=== PATIENT | female | born 1940 | race Caucasian/White ===

== ENCOUNTER 2017-01-10 14:19 | Observation (INO) | payer OTHER, BC ==
--- NOTE | 2017-01-10 14:23 | PDOC ---
Rapid Medical Evaluation Time Seen by Provider: 01/10/17 14:21 Medical Evaluation: Allergies Allergy/AdvReac Type Severity Reaction Status Date / Time meperidine HCl [From Demerol] Allergy Rash Verified 01/10/17 14:21 01/10/17 14:21 Pt arrives with complaints of: chicken "stuck in throat". 3rd episode. Removal done by endoscopy, states unable to swallow solids On exam : speaking full sentences, normal voice I have ordered: soft tissue xray Pt will go to : Main ED Discharge Disposition - Diagnosis Dysphagia Qualifiers: Dysphagia type: unspecified Qualified Code(s): R13.10 - Dysphagia, unspecified Food impaction of esophagus Qualifiers: Encounter type: initial encounter Qualified Code(s): T18.128A - Food in esophagus causing other injury, initial encounter - Referrals - Patient Instructions - Post Discharge Activity
[2017-01-10 14:25] VITALS: BMI 27.8
--- NOTE | 2017-01-10 15:20 | PDOC ---
History of Present Illness - General History Source: Patient Exam Limitations: No Limitations - History of Present Illness Initial Comments: 01/10/17 17:32 The patient is a 76 year old female with a significant PMH of HTN, cataracts, schatzki ring, lung cancer, and anal cancer who presents to the emergency department with difficulty swallowing both liquids and solids since yesterday. She reports associated nausea and vomiting last night. The patient has only been able to take a sip of water while at the ER and vomited clear liquid at presentation. The patient denies chest pain, shortness of breath, headache and dizziness. Denies fever, chills, diarrhea and constipation. Denies dysuria, frequency, urgency and hematuria. Allergies: NKA Past surgical history: None reported. Social history: Former smoker (20 years ago). No reported drug or alcohol abuse. PCP: Dr. Santiago <Cal Ly - Last Filed: 01/10/17 17:47> <Ayush Daily - Last Filed: 01/10/17 17:54> - General Chief Complaint: Foreign Body (FB) Stated Complaint: DIFFICULTY SWALLOWING Time Seen by Provider: 01/10/17 14:21 Past History <Cal Ly - Last Filed: 01/10/17 17:47> - Past Medical History Cancer: Yes (anal lung) COPD: No Disorders: Yes (HAS "RADIATION CYSTITIS" INFLO DEVICE IN PLACE) HTN: Yes - Suicide/Smoking/Psychosocial Hx Smoking History: Former smoker Have you smoked in the past 12 months: No If you are a former smoker, when did you quit?: 20 years ago Information on smoking cessation initiated: No Hx Alcohol Use: Yes (socially) Drug/Substance Use Hx: No Substance Use Type: None Hx Substance Use Treatment: No <Ayush Daily - Last Filed: 01/10/17 17:54> - Past Medical History Allergies/Adverse Reactions: Allergies Allergy/AdvReac Type Severity Reaction Status Date / Time meperidine HCl [From Demerol] Allergy Rash Verified 01/10/17 14:21 Home Medications: Ambulatory Orders Amlodipine Besylate [Norvasc -] 5 mg PO DAILY 05/29/15 Aspirin [Aspirin EC] 81 mg PO DAILY 05/29/15 Atenolol [Tenormin -] 100 mg PO DAILY 05/29/15 Atorvastatin Ca [Lipitor] 10 mg PO HS 05/29/15 Fluoxetine HCl [Prozac] 40 mg PO ASDIR 05/29/15 Olmesartan Medoxomil [Benicar -] 20 mg PO DAILY 05/29/15 Pantoprazole Sodium [Protonix -] 40 mg PO DAILY #30 tablet.ec 06/03/15 Review of Systems - Review of Systems Able to Perform ROS?: Yes Comments:: 01/10/17 17:39 A complete review of 10 out of 10 review of systems is taken and is negative apart from what is previously mentioned below and in the HPI. <Cal Ly - Last Filed: 01/10/17 17:47> *Physical Exam - Vital Signs Last Vital Signs Temp Pulse Resp BP Pulse Ox 98.0 F 80 18 151/103 100 01/10/17 14:21 01/10/17 14:21 01/10/17 14:21 01/10/17 14:21 01/10/17 14:21 - Physical Exam Comments: 01/10/17 17:40 Vitals: Triage Vital signs reviewed General Appearance: no acute distress, well nourished well developed, Head: Atraumatic, normocephalic Ears: TM's normal bilaterally; Nose: Nares patent bilaterally;no nasal congestion Throat: Posterior oropharynx without erythema, mucous membranes moist, Neck: Supple; No Nuchal rigidity Chest Wall: Nontender Cardiac: Regular rate and rhythm, no murmurs, no rubs, no gallops, Lungs: Clear to auscultation bilateral, good air movement bilaterally, Abdomen: (+) Spitting up secretions. Soft, nondistended, normal bowel sounds, nontender to palpation Extremities: Full range of motion to all extremities, no cyanosis, clubbing, or edema Skin: Warm and dry, no rashes or lesions, no petechiae Neuro: AOX3; Cranial Nerves 2-12 grossly intact, Strength intact to all extremities, Sensation intact to all extremities, gait normal Psych: normal mood, normal affect <Cal Ly - Last Filed: 01/10/17 17:47> - Vital Signs Last Vital Signs Temp Pulse Resp BP Pulse Ox 98.0 F 80 18 151/103 100 01/10/17 14:21 01/10/17 14:21 01/10/17 14:21 01/10/17 14:21 01/10/17 14:21 <Ayush Daily - Last Filed: 01/10/17 17:54> Heart Score/ECG Review #1 01/10/17 17:46 EKG performed at [15:43] demonstrates rate of [75], rhythm of [normal], axis equal to [normal]. Prolonged QT. no T wave inversions, no ST elevations <Cal Ly - Last Filed: 01/10/17 17:47> ED Treatment Course - LABORATORY CBC & Chemistry Diagram: 01/10/17 15:30 01/10/17 15:30 - ADDITIONAL ORDERS Additional order review: Laboratory Results 01/10/17 01/10/17 01/10/17 15:30 15:30 15:30 PT with INR 11.60 INR 1.03 PTT (Actin FS) 30.4 Sodium Cancelled Potassium Cancelled Chloride Cancelled Carbon Dioxide Cancelled Anion Gap Cancelled BUN Cancelled Creatinine Cancelled Creat Clearance w eGFR Cancelled Random Glucose Cancelled Calcium Cancelled Total Bilirubin Cancelled AST Cancelled ALT Cancelled Alkaline Phosphatase Cancelled Total Protein Cancelled Albumin Cancelled 01/10/17 15:30 RBC 4.61 D MCV 94.4 MCHC 33.4 RDW 12.5 MPV 7.5 Neutrophils % 70.0 Lymphocytes % 21.4 D Monocytes % 7.2 Eosinophils % 0.7 Basophils % 0.7 - Medications Given in the ED: ED Medications Discontinued Medications Generic Name Dose Route Start Last Admin Trade Name Freq PRN Reason Stop Dose Admin Sodium Chloride 1,000 ml 01/10/17 16:11 01/10/17 16:17 Normal Saline - IV 01/10/17 16:12 1,000 ml ONCE ONE Administration <Cal Ly - Last Filed: 01/10/17 17:47> - LABORATORY CBC & Chemistry Diagram: 01/10/17 15:30 01/10/17 15:30 <Ayush Daily - Last Filed: 01/10/17 17:54> Medical Decision Making - Medical Decision Making 01/10/17 17:40 Plan: Blood Bank: Type and Screen Cardiology:EKG Medications: Sodium Chloride Radiology: Chest PA and LAT <Cal Ly - Last Filed: 01/10/17 17:47> - Medical Decision Making 01/10/17 17:53 Dr. Raoul Mathur to take patient to endoscopy suite under general anesthesia for food bolus disimpaction. Doctor Michael observe overnight patient can be discharged with procedure successful in the morning <Ayush Daily - Last Filed: 01/10/17 17:54> *DC/Admit/Observation/Transfer - Attestations Scribe Attestion: 01/10/17 17:41 Documentation prepared by Cal Ly, acting as medical radiation dosimetrist for Ayush Daily MD. <Cal Ly - Last Filed: 01/10/17 17:47> - Discharge Dispostion Admit: Yes <Ayush Daily - Last Filed: 01/10/17 17:54> Diagnosis at time of Disposition: Dysphagia Qualifiers: Dysphagia type: unspecified Qualified Code(s): R13.10 - Dysphagia, unspecified Food impaction of esophagus Qualifiers: Encounter type: initial encounter Qualified Code(s): T18.128A - Food in esophagus causing other injury, initial encounter - Referrals Referrals: Casey Rosario MD [Staff Physician] -
--- NOTE | 2017-01-10 15:57 | CON.GI ---
Consult Consult Specialty:: GI: Dr. Boyd for Dr. Rosario Referred by:: Dr. Ghislaine Santiago Reason for Consultation:: Dysphagia - History of Present Illness Chief Complaint: "chicken is stuck in my throat" History of Present Illness: 76F sent to [facility] ER by PMD for evaluation of dysphagia. She states that she was eating baked chicken breast last night and felt it get stuck in her throat. She then began experiencing vomiting intermittently through the night. She tried eating ceral thinking she could "push the food down" however she vomited this up at around 7 AM and tried eating ice cream for lunch. She Saw Dr. Santiago today, who advised she go to the ER. She had been endopscoped by Dr. Casey Rosario in 2016 for a similar episode. This led to disimpaction of food from her esophagus and a repeat upper endoscopy with dilation of a 3cm distal esophageal stricture. She subsequently followed with motor and controls tester Dr. Amos Manning at [facility] and has EGD/Colonoscopy last year. She was not sure of the results of the procedure. She currently took some sips of water in the ER at [facility] and did vomit mucous and water. - History Source History Provided By: Patient Limitations to Obtaining History: No Limitations - Past Medical History Cardio/Vascular: Yes: HTN, Hyperlipdemia Pulmonary: Yes: Other (MELI lobectomy for lung cancer 2008) Gastrointestinal: Yes: Cancer (anal cancer 2002), Hiatal Hernia (schatzki ring) , Other (anal cancer, dilation of esophageal stricture 2015) Renal/: Yes: Renal Inusuff, Other (radiation cystitis) Psych: Yes: Depression - Past Surgical History Past Surgical History: Yes: Cataract Removal, Colonoscopy, Hysterectomy - Alcohol/Substance Use Hx Alcohol Use: Yes (socially) - Smoking History Smoking history: Former smoker Have you smoked in the past 12 months: No If you are a former smoker, when did you quit?: 20 years ago - Social History Usual Living Arrangement: Alone () ADL: Independent 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, 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 Place of : [facility] [place] History of Recent Travel: No Home Medications - Allergies Allergies/Adverse Reactions: Allergies Allergy/AdvReac Type Severity Reaction Status Date / Time meperidine HCl [From Demerol] Allergy Rash Verified 01/10/17 14:21 - Home Medications Home Medications: Ambulatory Orders Amlodipine Besylate [Norvasc -] 5 mg PO DAILY 05/29/15 Aspirin [Aspirin EC] 81 mg PO DAILY 05/29/15 Atenolol [Tenormin -] 100 mg PO DAILY 05/29/15 Atorvastatin Ca [Lipitor] 10 mg PO HS 05/29/15 Fluoxetine HCl [Prozac] 40 mg PO ASDIR 05/29/15 Olmesartan Medoxomil [Benicar -] 20 mg PO DAILY 05/29/15 Pantoprazole Sodium [Protonix -] 40 mg PO DAILY #30 tablet.ec 06/03/15 Family Disease History - Family Disease History Family Disease History: CA: Father ( 83: Brain tumor), Mother ( 89: breast and esophageal cancers), Brother (2, 1 with colon cancer, lung cancer), Other: Brother, Sister (2) Review of Systems - Review of Systems Constitutional: denies: Fever, Unintentional Wgt. Loss Cardiovascular: denies: Chest Pain, Shortness of Breath Respiratory: denies: Cough Gastrointestinal: reports: Dysphagia, Vomiting. denies: Abdominal Pain, Melena Physical Exam-GI Vital Signs: Vital Signs Temperature Afeb 01/10/17 15:30 Pulse Rate 71 01/10/17 15:30 Respiratory Rate 18 01/10/17 15:30 Blood Pressure 177/97 01/10/17 15:30 O2 Sat by Pulse Oximetry (%) 98% RA 01/10/17 15:30 Constitutional: Yes: Calm Eyes: No: Sclera Icterus Cardiovascular: Yes: Regular Rate and Rhythm Respiratory: Yes: CTA Bilaterally Gastrointestinal Inspection: No: Distention ...Auscultate: Yes: Normoactive Bowel Sounds ...Palpate: No: Hepatomegaly, Splenomegaly, Tenderness ...Percussion: No: Tympanitic Edema: No (No LE edema) Neurological: Yes: Alert, Oriented Labs: No Labs as of yet Imaging - Results X-ray: Report Reviewed Problem List - Problems (1) Food impaction of esophagus Assessment/Plan: Suspected food impaction: Still vomiting up saliva Advise: NPO IV hydration Labs, including coags EKG CXR Discussed EGD with Ms. Dominguez. Discussed potential risks of the procedure like but not limited to bleeding, perforation requiring surgery to repair, infection , sedation medication effects all of which could be potentially life threatening. She has agreed to the procedure. Dr. Schuster usually admits patients of Dr. Santiago to his/her service Code(s): T18.128A - FOOD IN ESOPHAGUS CAUSING OTHER INJURY, INITIAL ENCOUNTER Qualifiers: Encounter type: initial encounter Qualified Code(s): T18.128A - Food in esophagus causing other injury, initial encounter
[2017-01-10] MEDS ORDERED: SODIUM CHLORIDE 0.9% 1000 ML INFUS.BAG IV ONE (16:11)
[2017-01-10 16:22] LABS: BASOPHIL 0.7 % (0-2.0); EOSINOPHIL 0.7 % (0-4.5); MCH 31.6 pg (25.7-33.7); MCHC 33.4 g/dl (32.0-36.0); MEAN CELL VOLUME 94.4 fl (80-96); MEAN PLT VOLUME 7.5 fl (7.5-11.1); PLATELET COUNT 302 K/MM3 (134-434); RDW 12.5 % (11.6-15.6)
[2017-01-10 16:34] LABS: INR 1.03 (0.82-1.09); PROTHROMBIN TIME (PATIENT) 11.6 SEC (9.98-11.88)
[2017-01-10] MEDS ORDERED: PROPOFOL 20 ML ONE (17:44)
[2017-01-10] MEDS ORDERED: ePHEDrine SULFATE 50 MG/1 ML AMPULE ONE (17:44)
[2017-01-10 18:01] LABS: ALBUMIN 4.1 g/dl (3.4-5.0); ANION GAP 9 (8-16); CALCIUM 8.8 mg/dL (8.5-10.1); CO2 28 mmol/L (21-32); CREATININE 1.9 mg/dL (0.55-1.02); GLUCOSE,RANDOM 99 mg/dL (74-106); SGOT/AST 18 U/L (15-37); SGPT/ALT 21 U/L (12-78)
[2017-01-10 18:03] LABS: ALK PHOS 103 U/L (45-117); TOT PROT 6.9 g/dl (6.4-8.2)
[2017-01-10] MEDS ORDERED: FLUoxetine HCL 20 MG CAPSULE (FP) PO SCH (18:15)
[2017-01-10] MEDS ORDERED: DEXTROSE 5%-0.45% SALINE 1,000 ML IV SCH ×2 (18:15→20:30)
[2017-01-10] MEDS ORDERED: ONDANSETRON 4 MG/2 ML VIAL ONE (18:24)
[2017-01-10] MEDS ORDERED: PANTOPRAZOLE SODIUM 80 MG in SODIUM CHLORIDE 100 ML IVPB SCH (18:30)
[2017-01-10] MEDS ORDERED: D5-1/2NS+20 MEQ KCL - 20 MEQ/1,000 ML INFUS.BAG IV SCH (18:30)
[2017-01-10] MEDS ORDERED: PROPOFOL 200 MG/20 ML VIAL IVPUSH PRN (20:00)
[2017-01-10] MEDS ORDERED: ONDANSETRON 4 MG/2 ML VIAL IVPUSH PRN (20:12)
[2017-01-10] MEDS ORDERED: LACTATED RINGERS SOLUTION 1,000 ML IV SCH (20:15)
--- NOTE | 2017-01-10 20:25 | PN ---
Progress Note (short form) - Note Progress Note: GI Procedure Note: Please see scanned EGD report. Large meat impaciton above a short stricture at 32cm from gonsalo incisors was encountered. The impaction required over 60 minutes to clear. Will order esophagram for the AM. Clear liquids until then. Will need dilation when it can be arranged.
[2017-01-10] MEDS ORDERED: ATORVASTATIN CA 10 MG TABLET (FP) PO SCH (22:00)
[2017-01-11] MEDS: VALSARTAN 160 MG TABLET (UD) PO SCH ×2 (00:36→11:46)
[2017-01-11] MEDS ORDERED: PANTOPRAZOLE SODIUM 80 MG in SODIUM CHLORIDE 100 ML IVPB SCH (01:00)
[2017-01-11 07:28] LABS: BASOPHIL 0.3 % (0-2.0); EOSINOPHIL 1.1 % (0-4.5); MCH 32.1 pg (25.7-33.7); MCHC 33.9 g/dl (32.0-36.0); MEAN CELL VOLUME 94.7 fl (80-96); NEUTROPHILS 60.8 % (42.8-82.8); PLATELET COUNT 226 K/MM3 (134-434); RDW 12.3 % (11.6-15.6); WHITE BLOOD COUNT 7.8 K/mm3 (4.0-10.0)
[2017-01-11 08:31] LABS: ALBUMIN 3.7 g/dl (3.4-5.0); ANION GAP 6 (8-16); BILIRUBIN,TOTAL 1.1 mg/dL (0.2-1.0); CALCIUM 8.7 mg/dL (8.5-10.1); CO2 31 mmol/L (21-32); CREATININE 1.6 mg/dL (0.55-1.02); GLUCOSE,RANDOM 96 mg/dL (74-106); SGOT/AST 16 U/L (15-37); SGPT/ALT 17 U/L (12-78); TOT PROT 6.2 g/dl (6.4-8.2)
[2017-01-11 08:32] LABS: ALK PHOS 88 U/L (45-117)
[2017-01-11 09:52] LABS: INR 1.06 (0.82-1.09)
[2017-01-11 09:55] LABS: C-REACTIVE PROTEIN 0.8 MG/DL (0.00-0.3)
[2017-01-11] MEDS ORDERED: ATENOLOL 50 MG TABLET (FP) PO SCH (10:00)
[2017-01-11] MEDS ORDERED: amLODIPine BESYLATE 5 MG TABLET (FP) PO SCH (10:00)
[2017-01-11] MEDS ORDERED: VALSARTAN 160 MG TABLET (UD) PO SCH (10:00)
--- NOTE | 2017-01-11 10:15 | PN ---
Progress Note (short form) - Note Progress Note: ANESTHESIOLOGY POST-OP CHECK 76F S/P EGD and food disimpaction under general anesthesia POD #1. No acute complaints, tolerating liquids, denies N/V. Vital Signs Temperature 98.5 F 01/11/17 06:00 Pulse Rate 77 01/11/17 06:00 Respiratory Rate 20 01/11/17 06:00 Blood Pressure 124/69 01/11/17 06:00 O2 Sat by Pulse Oximetry (%) 93 L 01/10/17 22:45 Active Medications Amlodipine Besylate (Norvasc -) 5 mg PO DAILY [facility] Atenolol (Tenormin -) 100 mg PO DAILY [facility] Atorvastatin Calcium (Lipitor -) 10 mg PO HS [facility] Last Admin: 01/11/17 00:36 Dose: Not Given Fentanyl (Sublimaze Injection -) 25 mcg IVPUSH [id number] PRN PRN Reason: PAIN Fluoxetine HCl (Prozac -) 40 mg PO ASDIR [facility] Last Admin: 01/11/17 00:35 Dose: Not Given Dextrose/Sodium Chloride (D5-1/2ns -) 1,000 mls @ 125 mls/hr IV ASDIR [facility] Last Admin: 01/10/17 21:53 Dose: 0 mls Pantoprazole Sodium 80 mg/ (Sodium Chloride) 100 mls @ 10 mls/hr IVPB Q10H [facility] PRN Reason: 8 MG/HR Last Admin: 01/11/17 01:01 Dose: 10 mls/hr Ondansetron HCl (Zofran Injection) 4 mg IVPUSH Q6H PRN PRN Reason: NAUSEA AND/OR VOMITING Propofol (Diprivan -) 20,000 mcg IVPUSH [id number] PRN PRN Reason: AGITATION Valsartan (Diovan -) 160 mg PO DAILY [facility] Last Admin: 01/11/17 00:36 Dose: Not Given Gen: awake, alert, NAD No apparent anesthesia complications, continue management as per primary team.
--- NOTE | 2017-01-11 10:38 | EKG ---
Test Reason : Blood Pressure : / mmHG Vent. Rate : 075 BPM Atrial Rate : 075 BPM P-R Int : 220 ms QRS Dur : 096 ms QT Int : 450 ms P-R-T Axes : 026 -11 038 degrees QTc Int : 502 ms SINUS RHYTHM WITH 1ST DEGREE A-V BLOCK PROLONGED QT ABNORMAL ECG WHEN COMPARED WITH ECG OF 29-MAY-2015 18:06, NO SIGNIFICANT CHANGE WAS FOUND Confirmed by SHELLY ALMONTE MD ([id number]) on 01/11/2017 10:38:34 AM Referred By: Confirmed By:SHELLY ALMONTE MD
--- NOTE | 2017-01-11 11:47 | PN ---
GI Progress Note Subjective: Had EGD last night w/ Dr. rosario Narrowing in the distal esophagus Had barium swallow awaiting official report - Objective Vital Signs: Vital Signs Temperature 99.1 F 01/11/17 10:00 Pulse Rate 73 01/11/17 10:00 Respiratory Rate 20 01/11/17 10:24 Blood Pressure 190/90 01/11/17 10:00 O2 Sat by Pulse Oximetry (%) 93 L 01/10/17 22:45 Constitutional: Calm Eyes: No: Sclera Icterus Cardiovascular: Yes: Regular Rate and Rhythm Respiratory: Yes: CTA Bilaterally Gastrointestinal Inspection: No: Distention ...Auscultate: Yes: Normoactive Bowel Sounds ...Palpate: No: Hepatomegaly, Splenomegaly, Tenderness Edema: No (No LE Edema) Labs: CBC, BMP 01/11/17 06:00 01/11/17 06:00 INR, PTT INR 1.06 (0.82-1.09) 01/11/17 09:10 Hepatic Panel Total Bilirubin 1.1 mg/dL (0.2-1.0) H 01/11/17 06:00 AST 16 U/L (15-37) 01/11/17 06:00 ALT 17 U/L (12-78) 01/11/17 06:00 Alkaline Phosphatase 88 U/L (45-117) 01/11/17 06:00 Albumin 3.7 g/dl (3.4-5.0) 01/11/17 06:00 Problem List - Problems (1) Food impaction of esophagus Assessment/Plan: Advance to pureed diet Protonix 20mg once daily If tolerating PO, OK for D/C. Needs follow-up with Dr. Rosario next week Advised pureed diet in interim with avoidance of bulked meats and breads Code(s): T18.128A - FOOD IN ESOPHAGUS CAUSING OTHER INJURY, INITIAL ENCOUNTER Qualifiers: Encounter type: initial encounter Qualified Code(s): T18.128A - Food in esophagus causing other injury, initial encounter
[2017-01-11] MEDS ORDERED: PANTOPRAZOLE 20 MG TABLET (FP) PO SCH (12:15)
[2017-01-11 14:26] VITALS: BP 131/72; PULSE 64; TEMP 98.3
--- NOTE | 2017-01-11 15:00 | HP ---
Admitting History and Physical - Primary Care Physician PCP: Carolina Rodriguez - Admission Chief Complaint: Esophageal stricture History of Present Illness: 76F sent to [facility] ER by PMD for evaluation of dysphagia. She states that she was eating baked chicken breast last night and felt it get stuck in her throat. She then began experiencing vomiting intermittently through the night. She tried eating ceral thinking she could "push the food down" however she vomited this up at around 7 AM and tried eating ice cream for lunch. She Saw Dr. Santiago today, who advised she go to the ER. She had been endopscoped by Dr. Casey Rosario in 2016 for a similar episode. This led to disimpaction of food from her esophagus and a repeat upper endoscopy with dilation of a 3cm distal esophageal stricture. She subsequently followed with second facing baster Dr. Amos Manning at [facility] and has EGD/Colonoscopy last year. She was not sure of the results of the procedure. She currently took some sips of water in the ER at [facility] and did vomit mucous and water. History Source: Patient, Medical Record Limitations to Obtaining History: No Limitations - Past Medical History Cardiovascular: Yes: HTN, Hyperlipdemia Pulmonary: Yes: Other (MELI lobectomy for lung cancer 2008) Gastrointestinal: Yes: Cancer (anal cancer 2002), Hiatal Hernia (schatzki ring) , Other (anal cancer, dilation of esophageal stricture 2015) Renal/: Yes: Renal Inusuff, Other (radiation cystitis) Psych: Yes: Depression - Past Surgical History Past Surgical History: Yes: Cataract Removal, Colonoscopy, Hysterectomy - Smoking History Smoking history: Former smoker Have you smoked in the past 12 months: No If you are a former smoker, when did you quit?: 20 years ago - Alcohol/Substance Use Hx Alcohol Use: Yes (socially) - Social History ADL: Independent 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, 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 Travel: No Home Medications - Allergies Allergies/Adverse Reactions: Allergies Allergy/AdvReac Type Severity Reaction Status Date / Time meperidine HCl [From Demerol] Allergy Rash Verified 01/10/17 14:21 - Home Medications Home Medications: Ambulatory Orders Amlodipine Besylate [Norvasc -] 5 mg PO DAILY 05/29/15 Aspirin [Aspirin EC] 81 mg PO DAILY 05/29/15 Atenolol [Tenormin -] 100 mg PO DAILY 05/29/15 Atorvastatin Ca [Lipitor] 10 mg PO HS 05/29/15 Fluoxetine HCl [Prozac] 40 mg PO ASDIR 05/29/15 Olmesartan Medoxomil [Benicar -] 20 mg PO DAILY 05/29/15 Pantoprazole Sodium [Protonix -] 40 mg PO DAILY #30 tablet.ec 06/03/15 Family Disease History - Family Disease History Family Disease History: CA: Father ( 83: Brain tumor), Mother ( 89: breast and esophageal cancers), Brother (2, 1 with colon cancer, lung cancer), Other: Brother, Sister (2) Review of Systems - Review of Systems Constitutional: reports: No Symptoms Eyes: reports: No Symptoms HENT: reports: No Symptoms Neck: reports: No Symptoms Cardiovascular: reports: No Symptoms Respiratory: reports: No Symptoms Gastrointestinal: reports: Dysphagia, Nausea, Vomiting Genitourinary: reports: No Symptoms Breasts: reports: No Symptoms Reported Musculoskeletal: reports: No Symptoms Integumentary: reports: No Symptoms Neurological: reports: No Symptoms Endocrine: reports: No Symptoms Hematology/Lymphatic: reports: No Symptoms Psychiatric: reports: No Symptoms Pain Intensity: 0 Physical Examination Vital Signs: Vital Signs Temperature 98.3 F 01/11/17 14:24 Pulse Rate 64 01/11/17 14:24 Respiratory Rate 18 01/11/17 14:24 Blood Pressure 131/72 01/11/17 14:24 O2 Sat by Pulse Oximetry (%) 93 L 01/10/17 22:45 Constitutional: Yes: Well Nourished, No Distress, Calm Cardiovascular: Yes: Regular Rate and Rhythm Respiratory: Yes: Regular Gastrointestinal: Yes: Normal Bowel Sounds Musculoskeletal: Yes: WNL Extremities: Yes: WNL Edema: No Peripheral Pulses WNL: Yes Neurological: Yes: Alert, Oriented Psychiatric: Yes: Alert, Oriented Labs: CBC, BMP 01/11/17 06:00 01/11/17 06:00 Imaging - Results Chest X-ray: Report Reviewed Problem List - Problems (1) Esophageal stricture Assessment/Plan: -seen by GI -EGD done -food impaction resolved -to f/u with GI outpatient for stricture -recommended PPI and pureed diet. Code(s): K22.2 - ESOPHAGEAL OBSTRUCTION (2) Dysphagia Code(s): R13.10 - DYSPHAGIA, UNSPECIFIED Qualifiers: Dysphagia type: unspecified Qualified Code(s): R13.10 - Dysphagia, unspecified (3) Esophageal obstruction due to food impaction Code(s): K22.2 - ESOPHAGEAL OBSTRUCTION; T18.128A - FOOD IN ESOPHAGUS CAUSING OTHER INJURY, INITIAL ENCOUNTER Assessment/Plan see problem list
== END 2017-01-11 15:57 | disposition home or self-care (01) ==
LOC: JER 14:19 → J8W 22:15 → JER 23:53
PROVIDERS: ADMIT Family Medicine; ATTEND Family Medicine
PROC: 3E033GC Introduction of Other Therapeutic Substance into Peripheral Vein, Percutaneous Approach (ICD-10-PCS; 2017-01-10)
PROC: 3E0337Z Introduction of Electrolytic and Water Balance Substance into Peripheral Vein, Percutaneous Approach (ICD-10-PCS; 2017-01-10)
PROC: 0DC28ZZ Extirpation of Matter from Middle Esophagus, Via Natural or Artificial Opening Endoscopic (ICD-10-PCS; principal; 2017-01-10 18:00)
DX: T18.128A Food in esophagus causing other injury, initial encounter (principal); R13.10 Dysphagia, unspecified; K22.2 Esophageal obstruction; E78.5 Hyperlipidemia, unspecified; K44.9 Diaphragmatic hernia without obstruction or gangrene; I10 Essential (primary) hypertension; Z85.118 Personal history of other malignant neoplasm of bronchus and lung; Z85.048 Personal history of other malignant neoplasm of rectum, rectosigmoid junction, and anus; Z87.891 Personal history of nicotine dependence; Z88.8 Allergy status to other drugs, medicaments and biological substances; Z79.82 Long term (current) use of aspirin; X58.XXXA Exposure to other specified factors, initial encounter; Y93.89 Activity, other specified; Y92.9 Unspecified place or not applicable
CPT/HCPCS: 36415; 70360-TC; 71020-TC; 74220-TC; 80053; 85025; 85610; 85730; 86140; 86850; 86900; 86901; 93005; 93010; 94760; 99284-25; G0378

== ENCOUNTER 2018-04-05 11:21 | Inpatient (IN) | payer OTHER, BC ==
--- NOTE | 2018-04-05 12:07 | PDOC ---
History of Present Illness <Yadira Vogel Rula - Last Filed: 04/05/18 13:27> - General History Source: Patient - History of Present Illness Initial Comments: 04/05/18 13:04 The patient is a 76 year old female with a significant PMH of HTN, cataracts, schatzki ring, lung cancer, and anal cancer who presents to the emergency department with difficulty swallowing liquids and solids since last night when she tried eating a piece of chicken (even though she knows to stick to pureed food). Since then she tried swallowing apple sauce, water ands ice cream but threw up everything. Last time she ate was at 7:30am. Last time she threw up was in the waiting room. Hasn't seen a installer interior assemblies since her last endoscopy in 01/06 and never followed up. She denies any difficulty breathing or nausea. 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) HTN: Yes - Suicide/Smoking/Psychosocial Hx Smoking History: Never smoked Have you smoked in the past 12 months: No If you are a former smoker, when did you quit?: 20 years ago Information on smoking cessation initiated: No Hx Alcohol Use: No Drug/Substance Use Hx: No Substance Use Type: None Hx Substance Use Treatment: No <Eric Bush - Last Filed: 04/05/18 13:29> - Past Medical History Allergies/Adverse Reactions: Allergies Allergy/AdvReac Type Severity Reaction Status Date / Time meperidine HCl [From Demerol] Allergy Rash Verified 04/05/18 11:29 Home Medications: Ambulatory Orders Amlodipine Besylate [Norvasc -] 5 mg PO DAILY 05/29/15 Aspirin [Aspirin EC] 81 mg PO DAILY 05/29/15 Atenolol [Tenormin -] 100 mg PO DAILY 05/29/15 Atorvastatin Ca [Lipitor] 10 mg PO HS 05/29/15 Fluoxetine HCl [Prozac] 40 mg PO ASDIR 05/29/15 Olmesartan Medoxomil [Benicar -] 20 mg PO DAILY 05/29/15 Pantoprazole Sodium [Protonix -] 40 mg PO DAILY #30 tablet.ec 06/03/15 Review of Systems - Review of Systems Able to Perform ROS?: Yes Is the patient limited Arabic proficient: No Constitutional: No: Symptoms Reported HEENTM: Yes: See HPI, Difficulty Swallowing Respiratory: No: Symptoms reported Cardiac (ROS): No: Symptoms Reported ABD/GI: No: Symptoms Reported : No: Symptoms Reported Musculoskeletal: No: Symptoms Reported Integumentary: No: Symptoms Reported Neurological: No: Symptoms reported All Other Systems: Reviewed and Negative <Eric Bush - Last Filed: 04/05/18 13:29> *Physical Exam - Vital Signs Last Vital Signs Temp Pulse Resp BP Pulse Ox 98.6 F 63 16 140/81 97 04/05/18 11:31 04/05/18 11:31 04/05/18 11:31 04/05/18 11:31 04/05/18 11:31 <Yadira Vogel - Last Filed: 04/05/18 13:27> - Vital Signs Last Vital Signs Temp Pulse Resp BP Pulse Ox 98.6 F 63 16 140/81 97 04/05/18 11:31 04/05/18 11:31 04/05/18 11:31 04/05/18 11:31 04/05/18 11:31 - Physical Exam General Appearance: Yes: Nourished, Appropriately Dressed. No: Apparent Distress HEENT: positive: EOMI, HAILEE, Normal ENT Inspection Respiratory/Chest: positive: Lungs Clear, Normal Breath Sounds. negative: Chest Tender, Respiratory Distress Cardiovascular: positive: Regular Rhythm, Regular Rate, S1, S2 Gastrointestinal/Abdominal: positive: Normal Bowel Sounds, Flat, Soft. negative : Tender Musculoskeletal: positive: Normal Inspection. negative: CVA Tenderness Extremity: positive: Normal Capillary Refill, Normal Inspection, Normal Range of Motion Integumentary: positive: Normal Color, Dry, Warm Neurologic: positive: Fully Oriented, Alert, Normal Mood/Affect, Normal Response , Motor Strength 5/5 <Eric Bush - Last Filed: 04/05/18 13:29> Moderate Sedation - Procedure Monitoring Vital Signs: Procedure Monitoring Vital Signs Temperature 98.6 F 04/05/18 11:31 Pulse Rate 63 04/05/18 11:31 Respiratory Rate 16 04/05/18 11:31 Blood Pressure 140/81 04/05/18 11:31 O2 Sat by Pulse Oximetry (%) 97 04/05/18 11:31 <LelaYadiralisa Horta - Last Filed: 04/05/18 13:27> - Procedure Monitoring Vital Signs: Procedure Monitoring Vital Signs Temperature 98.6 F 04/05/18 11:31 Pulse Rate 63 04/05/18 11:31 Respiratory Rate 16 04/05/18 11:31 Blood Pressure 140/81 04/05/18 11:31 O2 Sat by Pulse Oximetry (%) 97 04/05/18 11:31 <Eric Bush - Last Filed: 04/05/18 13:29> Medical Decision Making - Medical Decision Making 04/05/18 13:16 77F with easophageal stricture presents with acute on chronic dysphagia. Spoke to Dr. Rosario who asked for GI transactional attorney to be consulted. Spoke to Dr. Balderas who will perform endoscopy. Basic labs sent. <Eric Bush - Last Filed: 04/05/18 13:29> *DC/Admit/Observation/Transfer - Discharge Dispostion Decision to Admit order: Yes Decision to Admit order Date/Time: Decision to Admit Order Category Date Time Status Decision to Admit to Hospital Routine Admission 04/05/18 13:26 Ordered <Yadira Vogel - Last Filed: 04/05/18 13:27> - Discharge Dispostion Decision to Admit order: Yes <Eric Bush - Last Filed: 04/05/18 13:29> Diagnosis at time of Disposition: Food impaction of esophagus Qualifiers: Encounter type: initial encounter Qualified Code(s): T18.128A - Food in esophagus causing other injury, initial encounter - Discharge Dispostion Condition at time of disposition: Guarded - Referrals Referrals: Ghislaine Santiago MD [Primary Care Provider] - - Patient Instructions - Post Discharge Activity
--- NOTE | 2018-04-05 12:52 | PDOC ---
Attending Attestation - Resident Resident Name: Eric Bush - ED Attending Attestation I have performed the following: I have examined & evaluated the patient, The case was reviewed & discussed with the resident, I agree w/resident's findings & plan - HPI HPI: 04/05/18 13:20 The patient is a 77 year old female with a significant PMH of HTN, cataracts, schatzki ring and esophageal dysmotility and stricture, hiatal hernia, lung cancer, and anal cancer who presents to the emergency department with globus sensation, after eating piece of chicken last night. Since then, clear emesis with PO intake and mild epigastric pain. no cp or sob. no f/c. has history of food impaction x 2 (2016, 2017) s/p Barium swallows and endoscopic removal of food by Dr Rosario. Allergies: NKA Past surgical history: None reported. Social history: Former smoker (20 years ago). No reported drug or alcohol abuse. PCP: Dr. Santiago - Physicial Exam PE: 04/05/18 13:21 NAD, well appearing, speaking full sentences, PERRL, EOMI, MMM, nl conjunctiva, anicteric; normal phonation. neck supple. lungs clear, RRR, abdomen soft nontender, no peritoneal findings. LLOYD x4, No peripheral edema. normal color for ethnicity, WWP. - Medical Decision Making 04/05/18 13:22 hpi as documented VS wnl. no respiratory distress. making spit ups, but not actively vomiting.. findings consistent with food impaction, with clear emesis, similar presentations with known Schatzki's ring, esophageal dysmotility and stricture and hiatal hernia predisposing her to food impaction. - GI cs, Dr Balderas, will come to eval for endo removal of food impaction with history as prior. will take to the endo suite for eval - preop labs ordered. 04/05/18 13:27
[2018-04-05 13:53] LABS: BASO % 0.9 % (0-2.0); EOS % 0.8 % (0-4.5); HEMATOCRIT 38.6 % (32.4-45.2); HEMOGLOBIN 13.6 GM/dL (10.7-15.3); LYMPH % 24.2 % (8-40); MCHC 35.3 g/dl (32.0-36.0); MEAN CELL VOLUME 93.4 fl (80-96); MEAN PLT VOLUME 7.7 fl (7.5-11.1); MONO % 7.2 % (3.8-10.2); NEUT % 66.9 % (42.8-82.8); PLATELET COUNT 296 K/MM3 (134-434); RBC 4.14 M/mm3 (3.60-5.2); RDW 12.7 % (11.6-15.6)
[2018-04-05] MEDS ORDERED: fentaNYL CITRATE 250 MCG/5 ML VIAL ONE (13:56)
[2018-04-05 14:05] LABS: PROTHROMBIN TIME (PATIENT) 11.8 SEC (9.7-13.0)
[2018-04-05 14:13] LABS: ALBUMIN 4.7 g/dl (3.4-5.0); ALK PHOS 104 U/L (45-117); ANION GAP 6 MMOL/L (8-16); BILIRUBIN,TOTAL 1.1 mg/dL (0.2-1); BLOOD UREA NITROGEN 37 mg/dL (7-18); CALCIUM 9.1 mg/dL (8.5-10.1); CHLORIDE 102 mmol/L (98-107); CO2 30 mmol/L (21-32); CREATININE 2.5 mg/dL (0.55-1.3); GLUCOSE,RANDOM 100 mg/dL (74-106); SGOT/AST 23 U/L (15-37); SGPT/ALT 20 U/L (13-61); SODIUM 139 mmol/L (136-145); TOT PROT 8.3 g/dl (6.4-8.2)
[2018-04-05] MEDS ORDERED: ONDANSETRON 4 MG/2 ML VIAL IVPUSH ONE (15:01)
--- NOTE | 2018-04-05 15:42 | HP ---
CHIEF COMPLAINT: dysphagia PCP: Dr. Kavya Santiago HISTORY OF PRESENT ILLNESS: Patient is a 67 year old female with a history of HTN, cataracts, schatzki ring , lung cancer, and anal cancer who presented with dysphagia. Patients has had this three times in the past. She ate a piece of chicken thats too big and it stuck in her throat. She has had nausea and vomiting since then. In the past Dr. Rosario has been able to retrieve the food and has dilated her esophagus. Patient was seen in the ASU unit. Dr. Balderas used an endoscope and removed the piece of food. She is feeling better and has no complaints. Patient denies nausea, pain, chest pain, shortness of breath. ER course was notable for: (1) (2) (3) Recent Travel: denies PAST MEDICAL HISTORY: HTN, cataracts, schatzki ring, lung CA, and anal CA ( in remission since 2008) PAST SURGICAL HISTORY: hysterectomy, upper lobe resection Social History: Smoking: former smoker, quit 35 years ago Alcohol: a couple glasses of wine a month Drugs: Family History: Allergies meperidine HCl [From Demerol] Allergy (Verified 04/05/18 11:29) Rash HOME MEDICATIONS: Home Medications Medication Instructions Recorded Amlodipine Besylate [Norvasc -] 5 mg PO DAILY 05/29/15 Aspirin [Aspirin EC] 81 mg PO DAILY 05/29/15 Atenolol [Tenormin -] 100 mg PO DAILY 05/29/15 Atorvastatin Ca [Lipitor] 10 mg PO HS 05/29/15 Fluoxetine HCl [Prozac] 40 mg PO ASDIR 05/29/15 Olmesartan Medoxomil [Benicar -] 20 mg PO DAILY 05/29/15 Pantoprazole Sodium [Protonix -] 40 mg PO DAILY #30 tablet.ec 06/03/15 REVIEW OF SYSTEMS CONSTITUTIONAL: Absent: fever, chills, diaphoresis, generalized weakness, malaise, loss of appetite, weight change HEENT: Absent: rhinorrhea, nasal congestion, throat pain, throat swelling, difficulty swallowing, mouth swelling, ear pain, eye pain, visual changes CARDIOVASCULAR: Absent: chest pain, syncope, palpitations, irregular heart rate, lightheadedness , peripheral edema RESPIRATORY: Absent: cough, shortness of breath, dyspnea with exertion, orthopnea, wheezing, stridor, hemoptysis GASTROINTESTINAL: Absent: abdominal pain, abdominal distension, nausea, vomiting, diarrhea, constipation, melena, hematochezia GENITOURINARY: Absent: dysuria, frequency, urgency, hesitancy, hematuria, flank pain, genital pain MUSCULOSKELETAL: Absent: myalgia, arthralgia, joint swelling, back pain, neck pain SKIN: Absent: rash, itching, pallor HEMATOLOGIC/IMMUNOLOGIC: Absent: easy bleeding, easy bruising, lymphadenopathy, frequent infections ENDOCRINE: Absent: unexplained weight gain, unexplained weight loss, heat intolerance, cold intolerance NEUROLOGIC: Absent: headache, focal weakness or paresthesias, dizziness, unsteady gait, seizure, mental status changes, bladder or bowel incontinence PSYCHIATRIC: Absent: anxiety, depression, suicidal or homicidal ideation, hallucinations. PHYSICAL EXAMINATION Vital Signs - 24 hr 04/05/18 04/05/18 04/05/18 11:31 12:00 14:55 Temperature 98.6 F Pulse Rate 63 61 Respiratory 16 16 Rate Blood Pressure 140/81 110/57 L O2 Sat by Pulse 97 99 100 Oximetry (%) 04/05/18 04/05/18 15:10 15:26 Temperature Pulse Rate 65 65 Respiratory 16 18 Rate Blood Pressure 129/56 L 129/66 O2 Sat by Pulse 97 95 Oximetry (%) GENERAL: Awake, alert, and fully oriented, in no acute distress. HEAD: Normal with no signs of trauma. EYES: Pupils equal, round and reactive to light, extraocular movements intact EARS, NOSE, THROAT: Nonerythematous throat LUNGS: Breath sounds equal, clear to auscultation bilaterally. No wheezes, and no crackles. HEART: Regular rate and rhythm, normal S1 and S2 ABDOMEN: Soft, nontender, not distended, normoactive bowel sounds, no guarding, no rebound, no masses. MUSCULOSKELETAL: Normal range of motion at all joints. No bony deformities or tenderness. LOWER EXTREMITIES: 2+ pulses, warm, well-perfused. No calf tenderness. No peripheral edema. PSYCHIATRIC: Cooperative. Good eye contact. Appropriate mood and affect. SKIN: Warm, dry, normal turgor, no rashes or lesions noted, normal capillary refill. CBC, BMP 04/05/18 13:30 04/05/18 13:30 ASSESSMENT/PLAN: Patient is a 67 year old female with a history of HTN, cataracts, schatzki ring , lung cancer, and anal cancer who presented with dysphagia. #Dysphagia 2/2 to schatzki ring - Dr. Balderas preformed endoscopy to remove food - Dr. Rosario consulted and aware of situation, will see patient in the morning - barium swallow ordered for the morning - protonix IV push 40 mg daily - NPO for possible scope in the am #HTN - atenolol 50 mg daily with rob, typically 100 mg a day - olmesartan/HCTZ daily - amlodipine 10 mg daily - stable #rob 2/2 to volume depletion - Cr 2.5 - NS @ 125 - f/u am labs #Depression - fluoxetine daily #dvt ppx - SCD's - early ambulation FEN - NPO Dispo: admit to obs, f/u with Abraham in the morning Visit type - Emergency Visit Emergency Visit: No - New Patient This patient is new to me today: Yes Date on this admission: 04/05/18 - Critical Care Critical Care patient: No
[2018-04-05] MEDS ORDERED: SODIUM CHLORIDE 1,000 ML IV SCH (15:45)
[2018-04-05] MEDS ORDERED: DIPHENOXYLATE 2.5/ATROPINE.025 1 COMBO TABLET PO PRN (16:05)
--- NOTE | 2018-04-05 18:13 | CON.GI ---
Consult Consult Specialty:: GI - History of Present Illness History of Present Illness: covering for Donald Lewis/Abraham 77y/o F with PMH of esophageal stricture s/p EGD with removal of food impaction and subsequent dilation was admitted because of ofod impaction. She was doing well until after dineer approximately 7pm she felt that the chicken she ate was in her chest. This was accompanied by nausea and vomiting. I was called by the ED at 1 pm. Emergent EGD was scheduled. - Past Medical History Cardio/Vascular: Yes: HTN, Hyperlipdemia Pulmonary: Yes: Other (MELI lobectomy for lung cancer 2008) Gastrointestinal: Yes: Cancer (anal cancer 2002), Hiatal Hernia (schatzki ring) , Other (anal cancer, dilation of esophageal stricture 2015) Renal/: Yes: Renal Inusuff, Other (radiation cystitis) Psych: Yes: Depression - Past Surgical History Past Surgical History: Yes: Cataract Removal, Colonoscopy, Hysterectomy - Alcohol/Substance Use Hx Alcohol Use: No - Smoking History Smoking history: Never smoked Have you smoked in the past 12 months: No If you are a former smoker, when did you quit?: 20 years ago - Social History Usual Living Arrangement: Alone () ADL: Independent 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, 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 Travel: No Home Medications - Allergies Allergies/Adverse Reactions: Allergies Allergy/AdvReac Type Severity Reaction Status Date / Time meperidine HCl [From Demerol] Allergy Rash Verified 04/05/18 11:29 - Home Medications Home Medications: Ambulatory Orders Amlodipine Besylate [Norvasc -] 10 mg PO DAILY 05/29/15 Aspirin [Aspirin EC] 81 mg PO DAILY 05/29/15 Atenolol [Tenormin -] 100 mg PO DAILY 05/29/15 Atorvastatin Ca [Lipitor] 10 mg PO HS 05/29/15 Fluoxetine HCl [Prozac] 40 mg PO DAILY 05/29/15 Pantoprazole Sodium [Protonix -] 40 mg PO DAILY #30 tablet.ec 06/03/15 Diphenoxylate 2.5/Atropine.025 [Lomotil -] 2 combo PO Q6H PRN 04/05/18 Olmesartan/Hydrochlorothiazide [Olmesartan-Hctz 40-25 mg Tab] 1 each PO DAILY Family Disease History - Family Disease History Family Disease History: CA: Father ( 83: Brain tumor), Mother ( 89: breast and esophageal cancers), Brother (2, 1 with colon cancer, lung cancer), Other: Brother, Sister (2) Review of Systems - Review of Systems Constitutional: reports: Loss of Appetite. denies: Diaphoresis, Fever HENT: reports: Difficult Swallowing Cardiovascular: denies: Chest Pain, Palpitations Respiratory: denies: Cough Gastrointestinal: reports: Nausea, Vomiting. denies: Abdominal Pain, Bloating, Constipation, Diarrhea, Melena, Vomiting Blood Physical Exam-GI Vital Signs: Vital Signs Temperature 98.6 F 04/05/18 11:31 Pulse Rate 73 04/05/18 18:02 Respiratory Rate 18 04/05/18 18:02 Blood Pressure 150/74 04/05/18 18:02 O2 Sat by Pulse Oximetry (%) 96 04/05/18 18:02 Constitutional: Yes: Well Nourished Eyes: Yes: Conjunctiva Clear HENT: Yes: Atraumatic Neck: Yes: Trachea Midline Cardiovascular: Yes: Regular Rate and Rhythm Respiratory: Yes: CTA Bilaterally ...Auscultate: Yes: Normoactive Bowel Sounds ...Palpate: Yes: Soft. No: Firm/Rigid, Guarding, Hepatomegaly, Mass, Pulsatile Mass, Splenomegaly, Tenderness Labs: CBC, BMP 04/05/18 13:30 04/05/18 13:30 INR, PTT INR 1.00 (0.83-1.09) 04/05/18 13:30 Problem List - Problems (1) Food impaction of esophagus Assessment/Plan: R> emergent EGD was done ar 2 pm today She was admitted for further evaluation and management Barium esophagram Code(s): T18.128A - FOOD IN ESOPHAGUS CAUSING OTHER INJURY, INITIAL ENCOUNTER Qualifiers: Encounter type: initial encounter Qualified Code(s): T18.128A - Food in esophagus causing other injury, initial encounter
[2018-04-05] MEDS: PANTOPRAZOLE SODIUM 40 MG VIAL IVPUSH SCH (18:47)
[2018-04-05] MEDS: SODIUM CHLORIDE 1,000 ML IV SCH (18:47)
--- NOTE | 2018-04-05 18:49 | PN ---
Teaching Attending Note Name of Resident: Roselia Sargent ATTENDING PHYSICIAN STATEMENT I saw and evaluated the patient. I reviewed the resident's note and discussed the case with the resident. I agree with the resident's findings and plan as documented. SUBJECTIVE: Feels better s/p EGD and food evacuation OBJECTIVE: Afebrile, Hemodynamically Stable. Last Vital Signs Temp Pulse Resp BP Pulse Ox 98.6 F 73 18 150/74 96 04/05/18 11:31 04/05/18 18:02 04/05/18 18:02 04/05/18 18:02 04/05/18 18:02 HEENT -Atraumatic, Normocephalic Heart - S1, S2, RRR Lungs - clear to auscultation. Abdomen - Soft, non-tender. Bowel Sounds normal. Extremities - no edema. No calf tenderness. Laboratory Results - last 24 hr 04/05/18 04/05/18 04/05/18 13:30 13:30 13:30 WBC 9.0 RBC 4.14 Hgb 13.6 Hct 38.6 MCV 93.4 MCH 33.0 MCHC 35.3 RDW 12.7 Plt Count 296 D MPV 7.7 Absolute Neuts (auto) 6.0 Neutrophils % 66.9 Lymphocytes % 24.2 Monocytes % 7.2 Eosinophils % 0.8 Basophils % 0.9 Nucleated RBC % 0 PT with INR 11.80 INR 1.00 PTT (Actin FS) 30.0 Sodium 139 Potassium 4.0 Chloride 102 Carbon Dioxide 30 Anion Gap 6 L BUN 37 H Creatinine 2.5 H Creat Clearance w eGFR 18.68 Random Glucose 100 Calcium 9.1 Total Bilirubin 1.1 H AST 23 ALT 20 Alkaline Phosphatase 104 Total Protein 8.3 H Albumin 4.7 Blood Type Antibody Screen Current Medications Generic Name Dose Route Start Last Admin Trade Name Freq PRN Reason Stop Dose Admin Amlodipine Besylate 10 mg 04/06/18 10:00 Norvasc - PO DAILY KEELY Atenolol 50 mg 04/06/18 10:00 Tenormin - PO DAILY KEELY Atorvastatin Calcium 10 mg 04/05/18 22:00 Lipitor - PO HS KEELY Diphenoxylate HCl/Atropine 2 combo 04/05/18 16:05 Lomotil - PO Q6H PRN DIARRHEA Fluoxetine HCl 40 mg 04/06/18 10:00 Prozac - PO DAILY KEELY Sodium Chloride 1,000 mls @ 100 mls/hr 04/05/18 17:25 Normal Saline - IV ASDIR KEELY Pantoprazole Sodium 40 mg 04/05/18 15:46 Protonix Iv IVPUSH DAILY [facility] Home Medications Medication Instructions Recorded Amlodipine Besylate [Norvasc -] 10 mg PO DAILY 05/29/15 Aspirin [Aspirin EC] 81 mg PO DAILY 05/29/15 Atenolol [Tenormin -] 100 mg PO DAILY 05/29/15 Atorvastatin Ca [Lipitor] 10 mg PO HS 05/29/15 Fluoxetine HCl [Prozac] 40 mg PO DAILY 05/29/15 Pantoprazole Sodium [Protonix -] 40 mg PO DAILY #30 tablet.ec 06/03/15 Diphenoxylate 2.5/Atropine.025 2 combo PO Q6H PRN 04/05/18 [Lomotil -] Olmesartan/Hydrochlorothiazide 1 each PO DAILY 04/05/18 [Olmesartan-Hctz 40-25 mg Tab] ASSESSMENT/PLAN: 77 year old female with HTN, Schatzki's Ring, prior food impaction s/p EGD by Dr. Rosario, CKD 3, Lung Ca s/p lobectomy, Anal Ca s/p CTx and RTx (in remission since 2002), Hx radiation cystitis, presented to ED with dysphagia, odynophagia, regurgitation of food, vomiting since yesterday. She underwent EGD today showing food impaction with evacuation by Dr. Balderas. 1. Food Impaction secondary to Esophageal Stricture/Schatzki's Ring s/p EGD and food evacuation Clear liquids now, NPO from MN, possiblr Barium Swallow tomorrow and perhaps repeat EGD Further management as per GI. GI Px with PPI. 2. HTN - Continue Norvasc, Atenolol. HCTZ/Olmesartan held due to WESTON 3. WESTON on CKD 3 - likely sec to hypovolemia sec to vomiting/poor oral fluid intake. IV hydration. If no improvement, will request renal imaging. 4. HLD - Continue Atorvastatin 5. Depression - Continue Fluoxetine. DVT Px - SCDs
[2018-04-05] MEDS: ACETAMINOPHEN 325 MG TABLET (FP) PO PRN (19:49)
[2018-04-05] MEDS: ATORVASTATIN CA 10 MG TABLET (FP) PO SCH (22:00)
[2018-04-06] MEDS: SODIUM CHLORIDE 1,000 ML IV SCH ×3 (05:42→21:55)
[2018-04-06 08:36] LABS: BASO % 0.2 % (0-2.0); HEMATOCRIT 31.2 % (32.4-45.2); HEMOGLOBIN 10.9 GM/dL (10.7-15.3); LYMPH % 8.4 % (8-40); MCH 33.4 pg (25.7-33.7); MCHC 34.8 g/dl (32.0-36.0); MEAN CELL VOLUME 95.9 fl (80-96); MEAN PLT VOLUME 8.3 fl (7.5-11.1); MONO % 5.9 % (3.8-10.2); NEUT % 85.5 % (42.8-82.8); PLATELET COUNT 200 K/MM3 (134-434); RBC 3.26 M/mm3 (3.60-5.2); RDW 12.6 % (11.6-15.6); WHITE BLOOD COUNT 20.5 K/mm3 (4.0-10.0)
[2018-04-06 09:13] LABS: ALBUMIN 3.4 g/dl (3.4-5.0); ALK PHOS 73 U/L (45-117); ANION GAP 8 MMOL/L (8-16); BILIRUBIN,TOTAL 1.8 mg/dL (0.2-1); BLOOD UREA NITROGEN 40 mg/dL (7-18); CHLORIDE 104 mmol/L (98-107); CO2 27 mmol/L (21-32); CREATININE 2.3 mg/dL (0.55-1.3); GLUCOSE,RANDOM 116 mg/dL (74-106); MAGNESIUM 1.3 mg/dL (1.8-2.4); PHOSPHOROUS 3.3 mg/dL (2.5-4.9); POTASSIUM 3.8 mmol/L (3.5-5.1); SGOT/AST 19 U/L (15-37); SGPT/ALT 16 U/L (13-61); SODIUM 140 mmol/L (136-145)
[2018-04-06] MEDS ORDERED: VALSARTAN 160 MG TABLET (UD) PO SCH (10:00)
[2018-04-06] MEDS ORDERED: PATIENT'S OWN MEDICATION (NON-FORMULARY) (Atenolol [Tenormin -] 100 MG) PO SCH (10:00)
[2018-04-06] MEDS ORDERED: HYDROCHLOROTHIAZIDE 25 MG TABLET (FP) PO SCH (10:00)
[2018-04-06] MEDS: FLUoxetine HCL 20 MG CAPSULE (FP) PO SCH (11:02)
[2018-04-06] MEDS: ATENOLOL 50 MG TABLET (FP) PO SCH (11:02)
[2018-04-06] MEDS: amLODIPine BESYLATE 5 MG TABLET (FP) PO SCH (11:02)
[2018-04-06] MEDS: PANTOPRAZOLE SODIUM 40 MG VIAL IVPUSH SCH (11:04)
[2018-04-06] MEDS: ACETAMINOPHEN 325 MG TABLET (FP) PO PRN (11:06)
[2018-04-06 12:14] VITALS: BMI 28.6
[2018-04-06 12:33] LABS: URINE APPEARANCE SLCLOUDY; URINE BILIRUBIN NEGATIVE (<2.0 mg/dL); URINE COLOR YELLOW; URINE GLUCOSE (UA) NEGATIVE (NEGATIVE); URINE KETONE NEGATIVE (NEGATIVE); URINE LEUK ESTERASE 1+ (NEGATIVE); URINE NITRITE POSITIVE (NEGATIVE); URINE PROTEIN NEGATIVE (NEGATIVE); URINE UROBILINOGEN NEGATIVE mg/dL (0.2-1.0)
[2018-04-06 12:40] LABS: ANISOCYTOSIS 0; MACROCYTOSIS 0; PLATELET ESTIMATE NORMAL
[2018-04-06 13:23] LABS: EPI CELLS RARE /HPF (FEW); URINE BACTERIA MANY /hpf (NONE SEEN); URINE MUCUS MANY
[2018-04-06] MEDS ORDERED: cefTRIAXone SODIUM 1 GM VIAL ONE (14:06)
[2018-04-06] MEDS ORDERED: DEXTROSE 5%-WATER - 50 ML IVPB ONE (14:06)
[2018-04-06] MEDS: CEFTRIAXONE 1 GM in DEXTROSE 5%-WATER - 50 ML IVPB SCH (14:25)
--- NOTE | 2018-04-06 15:04 | PN ---
Physical Exam: SUBJECTIVE: Patient seen and examined. Patient complains of feeling feverish and "off". Patient did not have a temperature overnight. Patient tolerating soft diet. OBJECTIVE: Vital Signs Temperature 98.6 F 04/06/18 14:41 Pulse Rate 65 04/06/18 14:41 Respiratory Rate 17 04/06/18 14:41 Blood Pressure 106/54 L 04/06/18 14:41 O2 Sat by Pulse Oximetry (%) 94 L 04/06/18 09:00 GENERAL: Awake, alert, and fully oriented, in no acute distress. HEAD: Normal with no signs of trauma. EYES: Pupils equal, round and reactive to light, extraocular movements intact EARS, NOSE, THROAT: Nonerythematous throat LUNGS: Breath sounds equal, clear to auscultation bilaterally. No wheezes, and no crackles. HEART: Regular rate and rhythm, normal S1 and S2 ABDOMEN: Soft, nontender, not distended, normoactive bowel sounds, no guarding, no rebound, no masses. MUSCULOSKELETAL: Normal range of motion at all joints. No bony deformities or tenderness. LOWER EXTREMITIES: 2+ pulses, warm, well-perfused. No calf tenderness. No peripheral edema. PSYCHIATRIC: Cooperative. Good eye contact. Appropriate mood and affect. SKIN: Warm, dry, normal turgor, no rashes or lesions noted, normal capillary refill. CBC, BMP 04/06/18 06:20 04/06/18 06:20 Active Medications Acetaminophen (Tylenol -) 650 mg PO Q4H PRN PRN Reason: FEVER Last Admin: 04/06/18 11:06 Dose: 650 mg Amlodipine Besylate (Norvasc -) 10 mg PO DAILY [facility] Last Admin: 04/06/18 11:02 Dose: 10 mg Atenolol (Tenormin -) 50 mg PO DAILY [facility] Last Admin: 04/06/18 11:02 Dose: 50 mg Atorvastatin Calcium (Lipitor -) 10 mg PO HS [facility] Last Admin: 04/05/18 22:00 Dose: 10 mg Diphenoxylate HCl/Atropine (Lomotil -) 2 combo PO Q6H PRN PRN Reason: DIARRHEA Fluoxetine HCl (Prozac -) 40 mg PO DAILY [facility] Last Admin: 04/06/18 11:02 Dose: 40 mg Sodium Chloride (Normal Saline -) 1,000 mls @ 100 mls/hr IV ASDIR KEELY Last Admin: 04/06/18 05:42 Dose: 100 mls/hr Ceftriaxone Sodium 1 gm/ (Dextrose) 50 mls @ 100 mls/hr IVPB DAILY [facility]; Protocol Last Admin: 04/06/18 14:25 Dose: 100 mls/hr Pantoprazole Sodium (Protonix Iv) 40 mg IVPUSH DAILY [facility] Last Admin: 04/06/18 11:04 Dose: 40 mg ASSESSMENT/PLAN: Patient is a 67 year old female with a history of HTN, cataracts, schatzki ring , lung cancer, and anal cancer who presented with dysphagia. #Dysphagia 2/2 to schatzki ring -Evaluated by Dr. Rosario - advance to soft diet, f/u with GI as an outpatient - barium swallow: small hiatal hernia suggestive of schaztzki ring, no GERD, no Zenkers diverticulum - continue protonix 40 IV push daily #UTI - UA: leukocyte esterase 1+ - f/u urine culture - Ceftriaxone 1 gm daily #HTN - atenolol 50 mg daily with rob, typically 100 mg a day - amlodipine 10 mg daily - HCTZ/olsartan held for AK - stable #rob 2/2 to volume depletion on CKD stage III - Cr 2.3 - NS @ 125 - f/u am labs - f/u renal US #Depression - fluoxetine daily #dvt ppx - SCD's - early ambulation FEN - NPO Dispo: f/u Cr in morning Visit type - Emergency Visit Emergency Visit: No - New Patient This patient is new to me today: No - Critical Care Critical Care patient: No
--- NOTE | 2018-04-06 16:43 | PN ---
Teaching Attending Note Name of Resident: Roselia Sargent ATTENDING PHYSICIAN STATEMENT I saw and evaluated the patient. I reviewed the resident's note and discussed the case with the resident. I agree with the resident's findings and plan as documented. SUBJECTIVE: Feels better s/p EGD and food evacuation - no further vomiting. OBJECTIVE: Afebrile, Hemodynamically Stable. Last Vital Signs Temp Pulse Resp BP Pulse Ox 98.6 F 65 17 106/54 L 94 L 04/06/18 14:41 04/06/18 14:41 04/06/18 14:41 04/06/18 14:41 04/06/18 09:00 HEENT -Atraumatic, Normocephalic Heart - S1, S2, RRR Lungs - clear to auscultation. Abdomen - Soft, non-tender. Bowel Sounds normal. Extremities - no edema. No calf tenderness. Laboratory Results - last 24 hr 04/06/18 04/06/18 04/06/18 06:20 06:20 10:30 WBC 20.5 H RBC 3.26 L Hgb 10.9 Hct 31.2 L D MCV 95.9 MCH 33.4 MCHC 34.8 RDW 12.6 Plt Count 200 D MPV 8.3 Absolute Neuts (auto) 17.5 H Neutrophils % 85.5 H D Neutrophils % (Manual) 83.8 H Band Neutrophils % 7.1 Lymphocytes % 8.4 D Lymphocytes % (Manual) 5.1 L Monocytes % 5.9 Monocytes % (Manual) 2 L Eosinophils % 0.0 D Eosinophils % (Manual) 0.0 Basophils % 0.2 Basophils % (Manual) 0.0 Myelocytes % (Man) 0 Promyelocytes % (Man) 0 Blast Cells % (Manual) 0 Nucleated RBC % 0 Metamyelocytes 0 Hypochromia 0 Platelet Estimate Normal Polychromasia 0 Poikilocytosis 0 Anisocytosis 0 Microcytosis 0 Macrocytosis 0 Sodium 140 Potassium 3.8 Chloride 104 Carbon Dioxide 27 Anion Gap 8 BUN 40 H Creatinine 2.3 H Creat Clearance w eGFR 20.56 Random Glucose 116 H Calcium 8.0 L Phosphorus 3.3 Magnesium 1.3 L Total Bilirubin 1.8 H AST 19 ALT 16 Alkaline Phosphatase 73 Total Protein 6.0 L Albumin 3.4 Urine Color Yellow Urine Appearance Slcloudy Urine pH 5.0 Ur Specific [place] 1.013 Urine Protein Negative Urine Glucose (UA) Negative Urine Ketones Negative Urine Blood Negative Urine Nitrite Positive Urine Bilirubin Negative Urine Urobilinogen Negative Ur Leukocyte Esterase 1+ H D Urine WBC (Auto) 19 Urine RBC (Auto) 2 Ur Epithelial Cells Rare Urine Bacteria Many Urine Mucus Many Current Medications Generic Name Dose Route Start Last Admin Trade Name Freq PRN Reason Stop Dose Admin Acetaminophen 650 mg 04/05/18 19:13 04/06/18 11:06 Tylenol - PO 650 mg Q4H PRN Administration FEVER Amlodipine Besylate 10 mg 04/06/18 10:00 04/06/18 11:02 Norvasc - PO 10 mg DAILY KEELY Administration Atenolol 50 mg 04/06/18 10:00 04/06/18 11:02 Tenormin - PO 50 mg DAILY KEELY Administration Atorvastatin Calcium 10 mg 04/05/18 22:00 04/05/18 22:00 Lipitor - PO 10 mg HS KEELY Administration Diphenoxylate HCl/Atropine 2 combo 04/05/18 16:05 Lomotil - PO Q6H PRN DIARRHEA Fluoxetine HCl 40 mg 04/06/18 10:00 04/06/18 11:02 Prozac - PO 40 mg DAILY KEELY Administration Sodium Chloride 1,000 mls @ 100 mls/hr 04/05/18 17:25 04/06/18 05:42 Normal Saline - IV 100 mls/hr ASDIR KEELY Administration Ceftriaxone Sodium 1 gm/ 50 mls @ 100 mls/hr 04/06/18 13:30 04/06/18 14:25 Dextrose IVPB 100 mls/hr DAILY KEELY Administration Protocol Pantoprazole Sodium 40 mg 04/05/18 15:46 04/06/18 11:04 Protonix Iv IVPUSH 40 mg DAILY KEELY Administration ASSESSMENT/PLAN: 77 year old female with HTN, Schatzki's Ring, prior food impaction s/p EGD by Dr. Rosario, CKD 3, Lung Ca s/p lobectomy, Anal Ca s/p CTx and RTx (in remission since 2002), Hx radiation cystitis, presented to ED with dysphagia, odynophagia, regurgitation of food, vomiting for 1 day. She underwent EGD 04/05 showing food impaction with evacuation by Dr. Balderas. 1. Food Impaction secondary to Esophageal Stricture/Schatzki's Ring s/p EGD and food evacuation 04/05 Barium Esophogram 04/06 - small hiatal hernia with suggestion of Schatzki's ring. Further management as per GI as out-patient. Continue soft diet and PPI. 2. HTN - Continue Norvasc, Atenolol. HCTZ/Olmesartan held due to WESTON 3. WESTON on CKD 3 - likely sec to hypovolemia sec to vomiting/poor oral fluid intake. IV hydration ongoing. Renal imaging pending. 4. HLD - Continue Atorvastatin 5. Depression - Continue Fluoxetine. 6. UTI - positive UA - started on empiric Ceftriaxone. DVT Px - SCDs
--- NOTE | 2018-04-06 18:18 | PN ---
GI Progress Note Subjective: GI NOte: Dr Balderas's interventions are greatly appreciated. Now on antibiotics as WBC brii to 20K presumable from aspiration while impacted. Also has renal failure and R hydronephrosis. Tells me she was going to see a urologist in [facility] but cannot elaborate. She denies cough or dyspnea. Tolerated a soft diet. Esophagram reveals a Schatzki ring which is not tight. I spoke with DR.Brenda Santiago her PMD. Harika's BUN/Cr on was 33/1.9. NO hydronephrosis on 2017 sonogram. - Objective Vital Signs: Vital Signs Temperature 98.6 F 04/06/18 14:41 Pulse Rate 65 04/06/18 14:41 Respiratory Rate 17 04/06/18 14:41 Blood Pressure 106/54 L 04/06/18 14:41 O2 Sat by Pulse Oximetry (%) 88 L 04/06/18 17:00 Laboratory Tests 04/05/18 04/05/18 04/06/18 13:30 13:30 06:20 WBC 9.0 20.5 H Hgb 13.6 10.9 BUN 37 H Creatinine 2.5 H 04/06/18 06:20 WBC Hgb BUN 40 H Creatinine 2.3 H Constitutional: Anxious Respiratory: Yes: CTA Bilaterally ...Auscultate: Yes: Normoactive Bowel Sounds ...Palpate: Yes: Soft, Other (nontender) Labs: CBC, BMP 04/06/18 06:20 04/06/18 06:20 INR, PTT INR 1.00 (0.83-1.09) 04/05/18 13:30 Assessment/Plan Impression: Esophageal meat impaction due to Schatzki ring Suspected apsiration pneumonia Renal failure ? prerenal as unilateral obstruction would not account for this Plan; IV fluids Renal consultation Urology consultation Harika will be referred to another family welfare social work professor for Schatzki ring dilation by Dr Santiago after discharge Dr Balderas [place] be covering his weekend. Please call him as needed. Problem List - Problems (1) Hydronephrosis Code(s): N13.30 - UNSPECIFIED HYDRONEPHROSIS (2) Food impaction of esophagus Code(s): T18.128A - FOOD IN ESOPHAGUS CAUSING OTHER INJURY, INITIAL ENCOUNTER Qualifiers: Encounter type: initial encounter Qualified Code(s): T18.128A - Food in esophagus causing other injury, initial encounter (3) History of anal cancer Code(s): Z85.048 - PRSNL HX OF MALIG NEOPLM OF RECTUM, RECTOSIG JUNCT, AND ANUS (4) History of lung cancer Code(s): Z85.118 - PERSONAL HISTORY OF MALIGNANT NEOPLASM OF BRONCHUS AND LUNG (5) Renal insufficiency Code(s): N28.9 - DISORDER OF KIDNEY AND URETER, UNSPECIFIED (6) Schatzki's ring Code(s): K22.2 - ESOPHAGEAL OBSTRUCTION
[2018-04-06] MEDS: ATORVASTATIN CA 10 MG TABLET (FP) PO SCH (21:55)
[2018-04-07] MEDS: ACETAMINOPHEN 325 MG TABLET (FP) PO PRN ×3 (01:24→22:16)
[2018-04-07 07:53] LABS: HEMATOCRIT 27.1 % (32.4-45.2); HEMOGLOBIN 9.5 GM/dL (10.7-15.3); MCH 33.2 pg (25.7-33.7); MCHC 34.9 g/dl (32.0-36.0); MEAN CELL VOLUME 94.9 fl (80-96); PLATELET COUNT 161 K/MM3 (134-434); RBC 2.85 M/mm3 (3.60-5.2); RDW 12.5 % (11.6-15.6); WHITE BLOOD COUNT 14.1 K/mm3 (4.0-10.0)
--- NOTE | 2018-04-07 09:00 | PN ---
Progress Note, Physician Chief Complaint: I was asked today by pt's PCP dr Frances Santiago to follow this pt admitted to hospitalist service on 04/05 with food impaction chart meds tests consults will be reviewed thoroughly d/w pt who agreed with physician change and d/w dr Ma in bed has some nausea - ordered prn zofran s/p EGD for food impaction, developed cough (still coughing) and some SOB after EGD no CP; had also some fever, now on iv ceftriaxone ambulates to the bathroom and in hallway - Current Medication List Current Medications: Active Medications Acetaminophen (Tylenol -) 650 mg PO Q4H PRN PRN Reason: FEVER Last Admin: 04/07/18 01:24 Dose: 650 mg Amlodipine Besylate (Norvasc -) 10 mg PO DAILY [facility] Last Admin: 04/06/18 11:02 Dose: 10 mg Atenolol (Tenormin -) 50 mg PO DAILY KEELY Last Admin: 04/06/18 11:02 Dose: 50 mg Atorvastatin Calcium (Lipitor -) 10 mg PO HS KEELY Last Admin: 04/06/18 21:55 Dose: 10 mg Diphenoxylate HCl/Atropine (Lomotil -) 2 combo PO Q6H PRN PRN Reason: DIARRHEA Fluoxetine HCl (Prozac -) 40 mg PO DAILY [facility] Last Admin: 04/06/18 11:02 Dose: 40 mg Ceftriaxone Sodium 1 gm/ (Dextrose) 50 mls @ 100 mls/hr IVPB DAILY KEELY; Protocol Last Admin: 04/06/18 14:25 Dose: 100 mls/hr Sodium Chloride (Normal Saline -) 1,000 mls @ 150 mls/hr IV ASDIR KEELY Stop: 04/09/18 00:04 Last Admin: 04/06/18 21:55 Dose: 150 mls/hr Pantoprazole Sodium (Protonix Iv) 40 mg IVPUSH DAILY [facility] Last Admin: 04/06/18 11:04 Dose: 40 mg - Objective Vital Signs: Vital Signs Temperature 98.6 F 04/07/18 06:00 Pulse Rate 73 04/07/18 06:00 Respiratory Rate 20 04/07/18 06:00 Blood Pressure 112/56 L 04/07/18 06:00 O2 Sat by Pulse Oximetry (%) 94 L 04/07/18 01:00 Constitutional: Yes: No Distress, Calm Eyes: Yes: Conjunctiva Clear HENT: Yes: Atraumatic Neck: Yes: Supple Cardiovascular: Yes: Regular Rate and Rhythm Respiratory: Yes: Diminished Gastrointestinal: Yes: Soft. No: Tenderness Genitourinary: No: Hematuria Musculoskeletal: No: Joint Stiffness, Joint Swelling Extremities: No: Cold, Cool, Cyanosis Edema: No Integumentary: No: Rash, Venous Stasis Changes Neurological: Yes: WNL, Alert, Oriented ...Motor Strength: WNL Psychiatric: Yes: WNL, Alert, Oriented. No: Agitated, Suicidal Ideation Labs: CBC, BMP 04/07/18 07:00 INR, PTT INR 1.00 (0.83-1.09) 04/05/18 13:30 - ....Imaging Other: Report Reviewed Assessment/Plan The patient is a 76 year old female with a significant PMH of HTN, cataracts, schatzki ring, lung cancer, and anal cancer (followed by ONC dr Blanc in [facility] ) admitted via emergency department with food impaction, s/p EGD then developed fever cough and nausea plus SOB after EGD started on IV ceftriaxone, cultures sent WBC 20K yesterday, today 14K will review chart tests meds consults, further w/u to follow ambulatory continue meds d/w pt and staff d/w PCP dr Santiago d/w dr Ma hospitalist t time 40 min
[2018-04-07 09:02] LABS: ALK PHOS 69 U/L (45-117); ANION GAP 9 MMOL/L (8-16); BILIRUBIN,TOTAL 2.1 mg/dL (0.2-1); BLOOD UREA NITROGEN 31 mg/dL (7-18); CALCIUM 7.3 mg/dL (8.5-10.1); CHLORIDE 105 mmol/L (98-107); CO2 25 mmol/L (21-32); CREATININE 1.9 mg/dL (0.55-1.3); GLUCOSE,RANDOM 95 mg/dL (74-106); POTASSIUM 3.4 mmol/L (3.5-5.1); SGOT/AST 22 U/L (15-37); SGPT/ALT 19 U/L (13-61); SODIUM 139 mmol/L (136-145); TOT PROT 5.4 g/dl (6.4-8.2)
[2018-04-07] MEDS ORDERED: POTASSIUM CHLORIDE TABS 20 MEQ TABLET.ER (FP) PO ONE (09:45)
[2018-04-07] MEDS: ATENOLOL 50 MG TABLET (FP) PO SCH (10:00)
[2018-04-07] MEDS: FLUoxetine HCL 20 MG CAPSULE (FP) PO SCH (10:00)
[2018-04-07] MEDS: amLODIPine BESYLATE 5 MG TABLET (FP) PO SCH (10:00)
[2018-04-07] MEDS: PANTOPRAZOLE SODIUM 40 MG VIAL IVPUSH SCH (10:00)
[2018-04-07] MEDS: CEFTRIAXONE 1 GM in DEXTROSE 5%-WATER - 50 ML IVPB SCH (10:00)
[2018-04-07] MEDS ORDERED: cefTRIAXone SODIUM 1 GM VIAL ONE (11:45)
[2018-04-07] MEDS ORDERED: DEXTROSE 5%-WATER - 50 ML IVPB ONE (11:46)
--- NOTE | 2018-04-07 15:26 | CON.GU ---
Consult Consult Specialty:: Urology Reason for Consultation:: Right Hydronephrosis - History of Present Illness Chief Complaint: Renal Insufficiency and hydro History of Present Illness: 77 yo female w cr 1.9 found to have mild right hydro - History Source History Provided By: Family Member, Medical Record - Past Medical History Cardio/Vascular: Yes: HTN, Hyperlipdemia Pulmonary: Yes: Other (MELI lobectomy for lung cancer 2008) Gastrointestinal: Yes: Cancer (anal cancer 2002), Hiatal Hernia (schatzki ring) , Other (anal cancer, dilation of esophageal stricture 2015) Renal/: Yes: Renal Inusuff, Other (radiation cystitis) Psych: Yes: Depression - Past Surgical History Past Surgical History: Yes: Cataract Removal, Colonoscopy, Hysterectomy - Alcohol/Substance Use Hx Alcohol Use: No - Smoking History Smoking history: Former smoker Have you smoked in the past 12 months: No If you are a former smoker, when did you quit?: 35 years ago - Social History Usual Living Arrangement: Alone () ADL: Independent 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, 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 Travel: No Home Medications - Allergies Allergies/Adverse Reactions: Allergies Allergy/AdvReac Type Severity Reaction Status Date / Time meperidine HCl [From Demerol] Allergy Rash Verified 04/05/18 11:29 - Home Medications Home Medications: Ambulatory Orders Amlodipine Besylate [Norvasc -] 10 mg PO DAILY 05/29/15 Aspirin [Aspirin EC] 81 mg PO DAILY 05/29/15 Atenolol [Tenormin -] 100 mg PO DAILY 05/29/15 Atorvastatin Ca [Lipitor] 10 mg PO HS 05/29/15 Fluoxetine HCl [Prozac] 40 mg PO DAILY 05/29/15 Pantoprazole Sodium [Protonix -] 40 mg PO DAILY #30 tablet.ec 06/03/15 Diphenoxylate 2.5/Atropine.025 [Lomotil -] 2 combo PO Q6H PRN 04/05/18 Olmesartan/Hydrochlorothiazide [Olmesartan-Hctz 40-25 mg Tab] 1 each PO DAILY Family Disease History - Family Disease History Family Disease History: CA: Father ( 83: Brain tumor), Mother ( 89: breast and esophageal cancers), Brother (2, 1 with colon cancer, lung cancer), Other: Brother, Sister (2) Physical Exam- Vital Signs: Vital Signs Temperature 98.1 F 04/07/18 14:31 Pulse Rate 72 04/07/18 14:31 Respiratory Rate 18 04/07/18 14:31 Blood Pressure 121/59 L 04/07/18 14:31 O2 Sat by Pulse Oximetry (%) 94 L 04/07/18 01:00 Labs: CBC, BMP 04/07/18 07:00 04/07/18 07:00 Imaging - Results Ultrasound: Report Reviewed Problem List - Problems (1) Hydronephrosis determined by ultrasound Assessment/Plan: 77 yo female w cr 1.9 from 2.4 Right mild hydro on DILMA Consider renal scan w lasix to determine if functional obstruction vs anatomic hydro Follow cr Code(s): N13.30 - UNSPECIFIED HYDRONEPHROSIS
--- NOTE | 2018-04-07 15:35 | CONSULT ---
Consult Consult Specialty:: Nephrology Reason for Consultation:: WESTON - History of Present Illness Chief Complaint: difficulty swallowing History of Present Illness: Pt is a 77 year old female with pmhx of ckd, htn, cataracts, schatzki rings and lung cancer who presents to the ER with difficulty swallowing. She was found to have renal failure and I was called to evaluate her. She denies shortness of breathe. She has history of kidney disease in the past but says that her renal function has been stable. 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 She was started on fluids and her renal function is improving. She denies dysuria or hematuria. - History Source History Provided By: Patient, Medical Record - Past Medical History Cardio/Vascular: Yes: HTN, Hyperlipdemia Pulmonary: Yes: Other (MELI lobectomy for lung cancer 2008) Gastrointestinal: Yes: Cancer (anal cancer 2002), Hiatal Hernia (schatzki ring) , Other (anal cancer, dilation of esophageal stricture 2015) Renal/: Yes: Renal Inusuff, Other (radiation cystitis) Psych: Yes: Depression - Past Surgical History Past Surgical History: Yes: Cataract Removal, Colonoscopy, Hysterectomy - Alcohol/Substance Use Hx Alcohol Use: No - Smoking History Smoking history: Former smoker Have you smoked in the past 12 months: No If you are a former smoker, when did you quit?: 35 years ago - Social History Usual Living Arrangement: Alone () ADL: Independent 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, 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 Travel: No Home Medications - Allergies Allergies/Adverse Reactions: Allergies Allergy/AdvReac Type Severity Reaction Status Date / Time meperidine HCl [From Demerol] Allergy Rash Verified 04/05/18 11:29 - Home Medications Home Medications: Ambulatory Orders Amlodipine Besylate [Norvasc -] 10 mg PO DAILY 05/29/15 Aspirin [Aspirin EC] 81 mg PO DAILY 05/29/15 Atenolol [Tenormin -] 100 mg PO DAILY 05/29/15 Atorvastatin Ca [Lipitor] 10 mg PO HS 05/29/15 Fluoxetine HCl [Prozac] 40 mg PO DAILY 05/29/15 Pantoprazole Sodium [Protonix -] 40 mg PO DAILY #30 tablet.ec 06/03/15 Diphenoxylate 2.5/Atropine.025 [Lomotil -] 2 combo PO Q6H PRN 04/05/18 Olmesartan/Hydrochlorothiazide [Olmesartan-Hctz 40-25 mg Tab] 1 each PO DAILY Family Disease History - Family Disease History Family Disease History: CA: Father ( 83: Brain tumor), Mother ( 89: breast and esophageal cancers), Brother (2, 1 with colon cancer, lung cancer), Other: Brother, Sister (2) Review of Systems - Review of Systems Constitutional: reports: Malaise Eyes: reports: No Symptoms HENT: reports: No Symptoms Neck: reports: No Symptoms Cardiovascular: reports: No Symptoms Respiratory: reports: No Symptoms Gastrointestinal: reports: Other (dyxphagia) Genitourinary: reports: No Symptoms Musculoskeletal: reports: No Symptoms Integumentary: reports: No Symptoms Neurological: reports: No Symptoms Endocrine: reports: No Symptoms Hematology/Lymphatic: reports: No Symptoms Physical Exam Vital Signs: Vital Signs Temperature 98.1 F 04/07/18 14:31 Pulse Rate 72 04/07/18 14:31 Respiratory Rate 18 04/07/18 14:31 Blood Pressure 121/59 L 04/07/18 14:31 O2 Sat by Pulse Oximetry (%) 94 L 04/07/18 01:00 Constitutional: Yes: Calm Eyes: Yes: Conjunctiva Clear HENT: Yes: Atraumatic Neck: Yes: Supple Cardiovascular: Yes: S1, S2 Respiratory: Yes: CTA Bilaterally Gastrointestinal: Yes: WNL Renal/: Yes: WNL Musculoskeletal: Yes: WNL Edema: No Neurological: Yes: Oriented Psychiatric: Yes: Oriented Labs: CBC, BMP 04/07/18 07:00 04/07/18 07:00 Laboratory Tests 05/31/15 06/01/15 01/10/17 06:15 06:30 17:10 Potassium Creatinine 1.5 H 1.8 H 1.9 H Urine Protein Urine Blood 01/11/17 04/05/18 04/06/18 06:00 13:30 06:20 Potassium Creatinine 1.6 H 2.5 H 2.3 H Urine Protein Urine Blood 04/06/18 04/07/18 10:30 07:00 Potassium 3.4 L Creatinine 1.9 H Urine Protein Negative Urine Blood Negative Imaging - Results Ultrasound: Report Reviewed (mild right hydro) Problem List - Problems (1) Food impaction of esophagus Code(s): T18.128A - FOOD IN ESOPHAGUS CAUSING OTHER INJURY, INITIAL ENCOUNTER Qualifiers: Encounter type: initial encounter Qualified Code(s): T18.128A - Food in esophagus causing other injury, initial encounter (2) History of anal cancer Code(s): Z85.048 - PRSNL HX OF MALIG NEOPLM OF RECTUM, RECTOSIG JUNCT, AND ANUS (3) Renal insufficiency Code(s): N28.9 - DISORDER OF KIDNEY AND URETER, UNSPECIFIED (4) Schatzki's ring Code(s): K22.2 - ESOPHAGEAL OBSTRUCTION Assessment/Plan Current Medications Generic Name Dose Route Start Last Admin Trade Name Freq PRN Reason Stop Dose Admin Acetaminophen 650 mg 04/05/18 19:13 04/07/18 01:24 Tylenol - PO 650 mg Q4H PRN Administration FEVER Amlodipine Besylate 10 mg 04/06/18 10:00 04/07/18 10:00 Norvasc - PO 10 mg DAILY KEELY Administration Atenolol 50 mg 04/06/18 10:00 04/07/18 10:00 Tenormin - PO 50 mg DAILY KEELY Administration Atorvastatin Calcium 10 mg 04/05/18 22:00 04/06/18 21:55 Lipitor - PO 10 mg HS KEELY Administration Diphenoxylate HCl/Atropine 2 combo 04/05/18 16:05 Lomotil - PO Q6H PRN DIARRHEA Fluoxetine HCl 40 mg 04/06/18 10:00 04/07/18 10:00 Prozac - PO 40 mg DAILY KEELY Administration Ceftriaxone Sodium 1 gm/ 50 mls @ 100 mls/hr 04/06/18 13:30 04/07/18 10:00 Dextrose IVPB 100 mls/hr DAILY KEELY Administration Protocol Sodium Chloride 1,000 mls @ 150 mls/hr 04/06/18 16:41 04/06/18 21:55 Normal Saline - IV 04/09/18 00:04 150 mls/hr ASDIR KEELY Administration Pantoprazole Sodium 40 mg 04/05/18 15:46 04/07/18 10:00 Protonix Iv IVPUSH 40 mg DAILY KEELY Administration Impression 1. WESTON 2. CKD 3. lung cancer 4. hypokalemia 5. htn 6. hld 7. schatzki ring 8. hydronephrosis 9. UTI Plan - replace potassium - check mag - decrease rate of fluids - urology input appreciated - repeat labs in am - repeat labs negative for blood or protein - likely weston from pre-renal disease
[2018-04-07] MEDS ORDERED: SODIUM CHLORIDE 1,000 ML IV SCH (15:38)
[2018-04-07] MEDS: ONDANSETRON 4 MG/2 ML VIAL IVPB PRN (16:42)
--- NOTE | 2018-04-07 18:03 | PN ---
GI Progress Note Subjective: tolerated diet well, no dysphagia, C-xray questionable retrocardiac infiltrate - Objective Vital Signs: Vital Signs Temperature 101.5 F H 04/07/18 16:28 Pulse Rate 78 04/07/18 16:28 Respiratory Rate 18 04/07/18 16:28 Blood Pressure 128/64 04/07/18 16:28 O2 Sat by Pulse Oximetry (%) 94 L 04/07/18 01:00 Constitutional: Well Nourished Eyes: Yes: Conjunctiva Clear HENT: Yes: Atraumatic Neck: Yes: Supple Cardiovascular: Yes: Regular Rate and Rhythm Respiratory: Yes: CTA Bilaterally ...Palpate: Yes: Soft. No: Firm/Rigid, Guarding, Hepatomegaly, Mass, Pulsatile Mass, Splenomegaly Labs: CBC, BMP 04/07/18 07:00 04/07/18 07:00 INR, PTT INR 1.00 (0.83-1.09) 04/05/18 13:30 Problem List - Problems (1) Food impaction of esophagus Assessment/Plan: --resolved R> continue soft diet patient instructed to follow up with Dr Rosario as an outpatient Code(s): T18.128A - FOOD IN ESOPHAGUS CAUSING OTHER INJURY, INITIAL ENCOUNTER Qualifiers: Encounter type: initial encounter Qualified Code(s): T18.128A - Food in esophagus causing other injury, initial encounter
[2018-04-07] MEDS: ATORVASTATIN CA 10 MG TABLET (FP) PO SCH (22:16)
[2018-04-08] MEDS: ONDANSETRON 4 MG/2 ML VIAL IVPB PRN ×2 (00:56→12:35)
[2018-04-08] MEDS ORDERED: SODIUM CHLORIDE 1,000 ML IV SCH (01:15)
[2018-04-08] MEDS: ACETAMINOPHEN 325 MG TABLET (FP) PO PRN ×2 (06:14→16:30)
--- NOTE | 2018-04-08 08:27 | PN ---
Progress Note, Physician Chief Complaint: still with some cough no CP no legs pains or edema had hypoxia last night improved with O2 NC - will check echo, chest CT, echo; BNP; legs venous US was not on sq heparin at admission (ambulatory) but d/w pt and staff to start sq heparin this am pt agreed still had some fever yesterday; seen by renal, ; will also call Pulm and ID and cardiology to see her cultures pending anemia w/u pending pt asked me to speak with her daughter Mee / phone and I did - Current Medication List Current Medications: Active Medications Acetaminophen (Tylenol -) 650 mg PO Q4H PRN PRN Reason: FEVER Last Admin: 04/08/18 06:14 Dose: 650 mg Amlodipine Besylate (Norvasc -) 10 mg PO DAILY [facility] Last Admin: 04/07/18 10:00 Dose: 10 mg Atenolol (Tenormin -) 50 mg PO DAILY [facility] Last Admin: 04/07/18 10:00 Dose: 50 mg Atorvastatin Calcium (Lipitor -) 10 mg PO HS [facility] Last Admin: 04/07/18 22:16 Dose: 10 mg Diphenoxylate HCl/Atropine (Lomotil -) 2 combo PO Q6H PRN PRN Reason: DIARRHEA Fluoxetine HCl (Prozac -) 40 mg PO DAILY [facility] Last Admin: 04/07/18 10:00 Dose: 40 mg Ceftriaxone Sodium 1 gm/ (Dextrose) 50 mls @ 100 mls/hr IVPB DAILY [facility]; Protocol Last Admin: 04/07/18 10:00 Dose: 100 mls/hr Sodium Chloride (Normal Saline -) 1,000 mls @ 125 mls/hr IV ASDIR [facility] Stop: 04/08/18 09:14 Last Admin: 04/08/18 01:48 Dose: 125 mls/hr Ondansetron HCl (Zofran Injection) 8 mg IVPB Q8H PRN PRN Reason: NAUSEA AND/OR VOMITING Last Admin: 04/08/18 00:56 Dose: 8 mg Pantoprazole Sodium (Protonix Iv) 40 mg IVPUSH DAILY [facility] Last Admin: 04/07/18 10:00 Dose: 40 mg - Objective Vital Signs: Vital Signs Temperature 98.9 F 04/08/18 02:00 Pulse Rate 78 04/07/18 22:00 Respiratory Rate 18 04/08/18 02:00 Blood Pressure 108/72 04/07/18 22:00 O2 Sat by Pulse Oximetry (%) 94 L 04/07/18 01:00 Constitutional: Yes: No Distress, Calm Eyes: Yes: Conjunctiva Clear HENT: Yes: Atraumatic Neck: Yes: Supple Cardiovascular: Yes: Regular Rate and Rhythm Respiratory: Yes: Diminished Gastrointestinal: Yes: Soft. No: Tenderness Genitourinary: No: Hematuria Musculoskeletal: No: Joint Stiffness, Joint Swelling Extremities: No: Cold, Cool, Cyanosis Edema: No Integumentary: No: Rash, Venous Stasis Changes Neurological: Yes: WNL, Alert, Oriented ...Motor Strength: WNL Psychiatric: Yes: WNL, Alert, Oriented. No: Agitated, Suicidal Ideation Labs: CBC, BMP 04/07/18 07:00 04/07/18 07:00 INR, PTT INR 1.00 (0.83-1.09) 04/05/18 13:30 - ....Imaging Other: Report Reviewed Assessment/Plan The patient is a 76 year old female with a significant PMH of HTN, cataracts, schatzki ring, lung cancer, and anal cancer (followed by ONC dr Blanc in [facility] ) admitted via emergency department with food impaction, s/p EGD then developed fever cough and nausea plus SOB after EGD started on IV ceftriaxone, cultures sent WBC 20K then 14K now 12k but still had fever ID, cardiology and pulmonary consults called anemia w/u chest CT; echo; BNP, legs US d/w pt and staff d/w PCP dr Santiago d/w pt's daughter Mee tj time 40 min
[2018-04-08 09:22] LABS: BASO % 0.1 % (0-2.0); EOS % 0.2 % (0-4.5); HEMATOCRIT 25.6 % (32.4-45.2); HEMOGLOBIN 8.9 GM/dL (10.7-15.3); MCH 33.2 pg (25.7-33.7); MCHC 34.7 g/dl (32.0-36.0); MEAN CELL VOLUME 95.7 fl (80-96); MEAN PLT VOLUME 8.2 fl (7.5-11.1); MONO % 6.6 % (3.8-10.2); NEUT % 87.1 % (42.8-82.8); PLATELET COUNT 152 K/MM3 (134-434); RBC 2.67 M/mm3 (3.60-5.2); RDW 12.6 % (11.6-15.6); WHITE BLOOD COUNT 12.6 K/mm3 (4.0-10.0)
[2018-04-08] MEDS ORDERED: DEXTROSE 5%-WATER - 50 ML IVPB ONE (09:33)
[2018-04-08] MEDS ORDERED: cefTRIAXone SODIUM 1 GM VIAL ONE (09:33)
[2018-04-08] MEDS: ATENOLOL 50 MG TABLET (FP) PO SCH (09:38)
[2018-04-08] MEDS: amLODIPine BESYLATE 5 MG TABLET (FP) PO SCH (09:38)
[2018-04-08] MEDS: FLUoxetine HCL 20 MG CAPSULE (FP) PO SCH (09:38)
[2018-04-08] MEDS: PANTOPRAZOLE SODIUM 40 MG VIAL IVPUSH SCH (09:38)
[2018-04-08] MEDS: CEFTRIAXONE 1 GM in DEXTROSE 5%-WATER - 50 ML IVPB SCH (09:38)
[2018-04-08 10:20] LABS: ALBUMIN 2.9 g/dl (3.4-5.0); ALK PHOS 85 U/L (45-117); ANION GAP 9 MMOL/L (8-16); BILIRUBIN,TOTAL 1.9 mg/dL (0.2-1); BLOOD UREA NITROGEN 21 mg/dL (7-18); CALCIUM 7.4 mg/dL (8.5-10.1); CHLORIDE 107 mmol/L (98-107); CO2 25 mmol/L (21-32); CREATININE 1.7 mg/dL (0.55-1.3); GLUCOSE,RANDOM 94 mg/dL (74-106); MAGNESIUM 0.9 mg/dL (1.8-2.4); POTASSIUM 3.9 mmol/L (3.5-5.1); SGOT/AST 19 U/L (15-37); SGPT/ALT 15 U/L (13-61); SODIUM 141 mmol/L (136-145); TOT PROT 5.4 g/dl (6.4-8.2)
[2018-04-08] MEDS ORDERED: ALBUTEROL SO4 0.083% IH SOL 2.5 MG/3 ML VIAL.NEB. NEB PRN (10:59)
[2018-04-08 11:44] LABS: ERYTHROCYTE SEDIMENTATION RATE 45 mm/hr (0-30)
--- NOTE | 2018-04-08 11:48 | CON.PULM ---
Consult Consult Specialty:: PULMONARY Referred by:: Dr Schuster Reason for Consultation:: shortness of breath - History of Present Illness Chief Complaint: dysphagia History of Present Illness: 77yo female with h/o HTN, lung ca s/p MELI lobectomy, anal cancer who was admitted with dysphagia. States she ate some chicken which was stuck in her throat. Found to have an impacted esophagus s/p EGD with removal of food. Also being treated for UTI and suspected aspiration. Developed increasing shortness of breath. Also hypoxic on room air. Reports a nonproductive cough but without wheezing. +subjective fevers. Not on home O2. He is a remote smoker. - History Source History Provided By: Patient, Medical Record Limitations to Obtaining History: No Limitations - Past Medical History Cardio/Vascular: Yes: HTN, Hyperlipdemia Pulmonary: Yes: Other (MELI lobectomy for lung cancer 2008) Gastrointestinal: Yes: Cancer (anal cancer 2002), Hiatal Hernia (schatzki ring) , Other (anal cancer, dilation of esophageal stricture 2015) Renal/: Yes: Renal Inusuff, Other (radiation cystitis) Psych: Yes: Depression - Past Surgical History Past Surgical History: Yes: Cataract Removal, Colonoscopy, Hysterectomy - Alcohol/Substance Use Hx Alcohol Use: No - Smoking History Smoking history: Former smoker Have you smoked in the past 12 months: No If you are a former smoker, when did you quit?: 35 years ago - Social History Usual Living Arrangement: Alone () ADL: Independent 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, 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 Travel: No Home Medications - Allergies Allergies/Adverse Reactions: Allergies Allergy/AdvReac Type Severity Reaction Status Date / Time meperidine HCl [From Demerol] Allergy Rash Verified 04/05/18 11:29 - Home Medications Home Medications: Ambulatory Orders Amlodipine Besylate [Norvasc -] 10 mg PO DAILY 05/29/15 Aspirin [Aspirin EC] 81 mg PO DAILY 05/29/15 Atenolol [Tenormin -] 100 mg PO DAILY 05/29/15 Atorvastatin Ca [Lipitor] 10 mg PO HS 05/29/15 Fluoxetine HCl [Prozac] 40 mg PO DAILY 05/29/15 Pantoprazole Sodium [Protonix -] 40 mg PO DAILY #30 tablet.ec 06/03/15 Diphenoxylate 2.5/Atropine.025 [Lomotil -] 2 combo PO Q6H PRN 04/05/18 Olmesartan/Hydrochlorothiazide [Olmesartan-Hctz 40-25 mg Tab] 1 each PO DAILY Family Disease History - Family Disease History Family Disease History: CA: Father ( 83: Brain tumor), Mother ( 89: breast and esophageal cancers), Brother (2, 1 with colon cancer, lung cancer), Other: Brother, Sister (2) Review of Systems - Review of Systems Constitutional: reports: Fever, Weakness Eyes: denies: Recent Change in Vision HENT: denies: Nasal Congestion, Throat Pain Neck: denies: Stiffness, Tenderness Cardiovascular: reports: Shortness of Breath. denies: Chest Pain Respiratory: reports: Cough. denies: Hemoptysis, Wheezing Gastrointestinal: denies: Abdominal Pain, Nausea, Vomiting Genitourinary: denies: Dysuria, Hematuria Neurological: denies: Dizziness, Headache Endocrine: denies: Unexplained Weight Loss Physical Exam Vital Sings: Vital Signs Temperature 98.3 F 04/08/18 09:06 Pulse Rate 69 04/08/18 09:06 Respiratory Rate 18 04/08/18 09:06 Blood Pressure 125/62 04/08/18 09:06 O2 Sat by Pulse Oximetry (%) 94 L 04/07/18 01:00 Constitutional: Yes: Anxious Eyes: Yes: Conjunctiva Clear, EOM Intact HENT: Yes: Atraumatic, Normocephalic Neck: Yes: Supple, Trachea Midline Cardiovascular: Yes: Regular Rate and Rhythm Respiratory: Yes: Diminished (distant breath sounds) ...Clubbing: No Gastrointestinal: Yes: Normal Bowel Sounds, Soft. No: Tenderness Edema: No Neurological: Yes: Alert, Oriented Labs: CBC, BMP 04/08/18 08:20 04/08/18 08:20 Imaging - Results Chest X-ray: Report Reviewed, Image Reviewed (possible retrocardiac opacity) Assessment/Plan Acute Hypoxic Respiratory Failure Esophageal Impaction s/p EGD Pneumonia UTI Sepsis Acute on Chronic Renal Failure h/o Lung Ca s/p MELI lobectomy h/o Anal Ca HTN - continue antibiotics - f/u cultures - O2 to keep Spo2 >90% - agree with CT chest noncontrast - LE dopplers - if CT chest unremarkable/without signfiicant findings and creatinine improving, may need CT chest with contrast - inhaled bronchodilators - DVT prophylaxis Thank you for this consult Tahir Campbell MD
[2018-04-08] MEDS: ALBUTEROL SO4 2.5/IPRATROPIUM 0.5 INH SOL 3 ML VIAL.NEB. NEB SCH ×3 (12:16→20:45)
[2018-04-08] MEDS: methylPREDNISolone NA SUCC 40 MG/1 ML VIAL IVPUSH SCH ×2 (12:39→18:18)
[2018-04-08] MEDS: HEPARIN NA (PORCINE) 5,000 UNITS/ML 1ML VIAL SQ SCH ×2 (12:41→21:59)
--- NOTE | 2018-04-08 12:45 | PN ---
Progress Note (short form) - Note Progress Note: ID consult dictated imp/reccd 77 yo female admitted with food impaction (chicken), s/p endoscopy-04/06 +vomiting +hypoxia ?retrocardiac infiltrate fever to 101.5 last night reports bilateral leg swelling two weeks ago no fevers at home prior to admission switch to unasyn for aspiration coverage including mouth anaerobes blood cultures sent sputum culture urinary antigens ct scan chest bilateral dopplers echo Problem List - Problems (1) Aspiration pneumonia Code(s): J69.0 - PNEUMONITIS DUE TO INHALATION OF FOOD AND VOMIT (2) Esophageal obstruction due to food impaction Code(s): K22.2 - ESOPHAGEAL OBSTRUCTION; T18.128A - FOOD IN ESOPHAGUS CAUSING OTHER INJURY, INITIAL ENCOUNTER (3) Acute kidney injury superimposed on CKD Code(s): N17.9 - ACUTE KIDNEY FAILURE, UNSPECIFIED; N18.9 - CHRONIC KIDNEY DISEASE, UNSPECIFIED
[2018-04-08] MEDS ORDERED: MAGNESIUM SULF 50% (8.12 MEQ/2 ML-1 GM VIAL) IVPB ONE (14:02)
--- NOTE | 2018-04-08 14:30 | PN ---
Progress Note (short form) - Note Progress Note: called by nurse O2 sat 88-89% on 4L/min O2; VSS; afebrile; pt started on nebs and iv steroids; ordered CXR and EKG stat, ventimask, transfer to monitored unit ; CE and cardio eval and echo aslo ordered CT and US on hold b/o low O2 sat; d/w pulm dr COLLADO
--- NOTE | 2018-04-08 15:59 | PN ---
Progress Note, Physician History of Present Illness: Pt seen and examined at bedside. She is awake and alert. He was short of breath and hypoxic earlier. She responded to a respiratory treatment. She says she feels better now. - Current Medication List Current Medications: Active Medications Acetaminophen (Tylenol -) 650 mg PO Q4H PRN PRN Reason: FEVER Last Admin: 04/08/18 06:14 Dose: 650 mg Albuterol Sulfate (Ventolin 0.083% Nebulizer Soln -) 1 amp NEB Q6H PRN PRN Reason: SHORT OF BREATH/WHEEZING Albuterol/Ipratropium (Duoneb -) 1 amp NEB RQID [facility] Last Admin: 04/08/18 12:16 Dose: 1 amp Amlodipine Besylate (Norvasc -) 5 mg PO DAILY [facility] Atenolol (Tenormin -) 50 mg PO DAILY [facility] Last Admin: 04/08/18 09:38 Dose: 50 mg Atorvastatin Calcium (Lipitor -) 10 mg PO HS [facility] Last Admin: 04/07/18 22:16 Dose: 10 mg Fluoxetine HCl (Prozac -) 40 mg PO DAILY [facility] Last Admin: 04/08/18 09:38 Dose: 40 mg Heparin Sodium (Porcine) (Heparin -) 5,000 unit SQ BID [facility] Last Admin: 04/08/18 12:41 Dose: 5,000 unit Ampicillin Sodium/Sulbactam (Sodium 3 gm/ Sodium Chloride) 100 mls @ 200 mls/ hr IVPB Q8H-IV [facility] Methylprednisolone Sodium Succinate (Solu-Medrol -) 40 mg IVPUSH Q8H-IV [facility] Last Admin: 04/08/18 12:39 Dose: 40 mg Ondansetron HCl (Zofran Injection) 8 mg IVPB Q8H PRN PRN Reason: NAUSEA AND/OR VOMITING Last Admin: 04/08/18 12:35 Dose: 8 mg Pantoprazole Sodium (Protonix -) 20 mg PO DAILY [facility] - Objective Vital Signs: Vital Signs Temperature 99.2 F 04/08/18 14:00 Pulse Rate 79 04/08/18 14:00 Respiratory Rate 18 04/08/18 14:00 Blood Pressure 133/70 04/08/18 14:00 O2 Sat by Pulse Oximetry (%) 94 L 04/07/18 01:00 Constitutional: Yes: Calm Eyes: Yes: Conjunctiva Clear HENT: Yes: Atraumatic Cardiovascular: Yes: S1, S2 Respiratory: Yes: On Nasal O2, Wheezes Gastrointestinal: Yes: Soft, Abdomen, Obese Genitourinary: Yes: WNL Edema: No Neurological: Yes: Oriented Psychiatric: Yes: Oriented Labs: CBC, BMP 04/08/18 08:20 04/08/18 08:20 INR, PTT INR 1.00 (0.83-1.09) 04/05/18 13:30 Problem List - Problems (1) Food impaction of esophagus Code(s): T18.128A - FOOD IN ESOPHAGUS CAUSING OTHER INJURY, INITIAL ENCOUNTER Qualifiers: Encounter type: initial encounter Qualified Code(s): T18.128A - Food in esophagus causing other injury, initial encounter (2) History of anal cancer Code(s): Z85.048 - PRSNL HX OF MALIG NEOPLM OF RECTUM, RECTOSIG JUNCT, AND ANUS (3) Renal insufficiency Code(s): N28.9 - DISORDER OF KIDNEY AND URETER, UNSPECIFIED (4) Schatzki's ring Code(s): K22.2 - ESOPHAGEAL OBSTRUCTION Assessment/Plan Current Medications Generic Name Dose Route Start Last Admin Trade Name Freq PRN Reason Stop Dose Admin Acetaminophen 650 mg 04/05/18 19:13 04/08/18 06:14 Tylenol - PO 650 mg Q4H PRN Administration FEVER Albuterol Sulfate 1 amp 04/08/18 10:59 Ventolin 0.083% Nebulizer Soln - NEB Q6H PRN SHORT OF BREATH/WHEEZING Albuterol/Ipratropium 1 amp 04/08/18 12:00 04/08/18 12:16 Duoneb - NEB 1 amp RQID KEELY Administration Amlodipine Besylate 5 mg 04/09/18 10:00 Norvasc - PO DAILY [facility] Atenolol 50 mg 04/06/18 10:00 04/08/18 09:38 Tenormin - PO 50 mg DAILY [facility] Administration Atorvastatin Calcium 10 mg 04/05/18 22:00 04/07/18 22:16 Lipitor - PO 10 mg HS KEELY Administration Fluoxetine HCl 40 mg 04/06/18 10:00 04/08/18 09:38 Prozac - PO 40 mg DAILY KE[facility] Administration Heparin Sodium (Porcine) 5,000 unit 04/08/18 11:00 04/08/18 12:41 Heparin - SQ 5,000 unit BID [facility] Administration Ampicillin Sodium/Sulbactam 100 mls @ 200 mls/hr 04/08/18 18:00 Sodium 3 gm/ Sodium Chloride IVPB Q8H-IV [facility] Methylprednisolone Sodium Succinate 40 mg 04/08/18 12:15 04/08/18 12:39 Solu-Medrol - IVPUSH 40 mg Q8H-IV [facility] Administration Ondansetron HCl 8 mg 04/07/18 16:37 04/08/18 12:35 Zofran Injection IVPB 8 mg Q8H PRN Administration NAUSEA AND/OR VOMITING Pantoprazole Sodium 20 mg 04/09/18 10:00 Protonix - PO DAILY [facility] Impression 1. [place] 2. CKD 3. lung cancer 4. hypokalemia 5. htn 6. hld 7. schatzki ring 8. hydronephrosis 9. UTI Plan - renal function improved - pt off of fluids - repeat labs in am - steroids started - monitor pulse ox - potassium is also improved - likely weston from pre-renal disease
[2018-04-08] MEDS: AMPICILLIN NA/SULBACTAM NA 3 GM in SODIUM CHLORIDE 100 ML IVPB SCH (18:17)
--- NOTE | 2018-04-08 18:48 | CONS ---
INFECTIOUS DISEASE CONSULTATION DATE OF CONSULTATION: 04/08/2018 DATE OF DICTATION: 04/08/2018. REFERRING PHYSICIAN: Shannon Schuster MD HISTORY OF PRESENT ILLNESS: This is a 77-year-old female who was admitted to the hospital for a food impaction. She was found to have dysphagia. She has had this in the past. She ate a piece of chicken that was too large and it got stuck. She had nausea and vomiting and then she came to the emergency room where she was seen by Dr. Balderas who retrieved the food. She was feeling better. She had a bariums swallow after which was stable. She was started on ceftriaxone for possible aspiration. This was on the . Last night she had a fever of 101.5. I am asked to see her for further evaluation. She reports that she is feeling short of breath and she also has some witnessed hypoxia. She is not on oxygen at home. She is a remote smoker. PAST MEDICAL HISTORY: Notable for hypertension, hyperlipidemia. She had a left upper lobe lobectomy for lung cancer in 2008. Anal cancer in 2002. Hiatal hernia. She has a known Schatzki ring. She has had esophageal dilatation in the past and 2 prior episodes of food impaction. She has known renal insufficiency, radiation cystitis and depression. SURGICAL HISTORY: Notable for cataract removal, hysterectomy as well as left upper lobe lobectomy. SOCIAL HISTORY: She is a former smoker. She quit many years ago. She lives alone. 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 She used to live in [place] and then moved in 2002 to the [facility]. FAMILY HISTORY: Notable for malignancies in both parents. Mother was breast and esophageal cancer. Father was a brain tumor. She has 1 brother with colon and lung cancer. REVIEW OF SYSTEMS: Notable for fatigue. She gives a history of having had 2 weeks ago some swelling of her legs which has resolved. PHYSICAL EXAM: General: She is awake and alert. Vital Signs: Temperature is 98.3, T-Max was 101.5. Pulse is 69. Blood pressure 165/62. Respiratory rate is 18. She is saturating 95% on 2 L. HEENT: She is normocephalic. Eyes anicteric. Neck: Supple. Lungs: She has scattered wheezes and crackles are heard, lung base. Abdomen: Soft, nontender. Extremities: Without edema. STUDIES: White count is 12.6, hemoglobin 8.9. Platelets 152. INR is 1. BUN 21, creatinine 1.7. She has 1+ leukocyte esterase in her urine with 19 white cells. Cultures: Urine culture was contaminated and repeats are pending. Current chest x-ray reveals a question of a retrocardiac infiltrate. SUMMARY: This is a 77-year-old woman admitted with what appears to be food impaction on the 15th status post endoscopy with vomiting and hypoxia and questionable retrograde infiltrate with fever overnight. She does not appear to be ill prior to her admission. I switched her to Unasyn for aspiration coverage to include mouth anaerobes. Blood cultures have been sent as well as sputum. I would suggest we send sputum cultures. She denies hemoptysis but does say she has some yellow sputum production. Urinary antigens, CAT scan of her chest, bilateral Dopplers and an echocardiogram. Further recommendations to follow. Barbara [id number]
[2018-04-08 21:04] LABS: N-TERMINAL BNP 13543.4 pg/ml (5-450)
[2018-04-08] MEDS ORDERED: FUROSEMIDE 40 MG/4 ML INJECTABLE VIAL IVPUSH ONE (21:41)
[2018-04-08] MEDS: ATORVASTATIN CA 10 MG TABLET (FP) PO SCH (21:59)
[2018-04-09] MEDS: AMPICILLIN NA/SULBACTAM NA 3 GM in SODIUM CHLORIDE 100 ML IVPB SCH ×3 (01:13→17:53)
[2018-04-09] MEDS: methylPREDNISolone NA SUCC 40 MG/1 ML VIAL IVPUSH SCH ×3 (01:13→17:54)
[2018-04-09 07:40] LABS: BASO % 0.1 % (0-2.0); HEMATOCRIT 24.8 % (32.4-45.2); HEMOGLOBIN 8.8 GM/dL (10.7-15.3); LYMPH % 5.9 % (8-40); MCH 33.6 pg (25.7-33.7); MCHC 35.6 g/dl (32.0-36.0); MEAN CELL VOLUME 94.2 fl (80-96); MEAN PLT VOLUME 8.4 fl (7.5-11.1); MONO % 3.1 % (3.8-10.2); NEUT % 90.9 % (42.8-82.8); PLATELET COUNT 163 K/MM3 (134-434); RBC 2.63 M/mm3 (3.60-5.2); RDW 12.3 % (11.6-15.6); WHITE BLOOD COUNT 7.1 K/mm3 (4.0-10.0)
[2018-04-09] MEDS: ALBUTEROL SO4 2.5/IPRATROPIUM 0.5 INH SOL 3 ML VIAL.NEB. NEB SCH ×4 (07:55→20:03)
[2018-04-09 08:35] LABS: ALBUMIN 2.8 g/dl (3.4-5.0); ALK PHOS 91 U/L (45-117); ANION GAP 9 MMOL/L (8-16); BILIRUBIN,TOTAL 0.9 mg/dL (0.2-1); BLOOD UREA NITROGEN 20 mg/dL (7-18); CALCIUM 7.8 mg/dL (8.5-10.1); CHLORIDE 103 mmol/L (98-107); CO2 27 mmol/L (21-32); CREATININE 1.8 mg/dL (0.55-1.3); GLUCOSE,RANDOM 149 mg/dL (74-106); N-TERMINAL BNP 13488.2 pg/ml (5-450); POTASSIUM 3.6 mmol/L (3.5-5.1); SGOT/AST 19 U/L (15-37); SGPT/ALT 16 U/L (13-61); SODIUM 139 mmol/L (136-145); TOT PROT 5.7 g/dl (6.4-8.2)
[2018-04-09] MEDS: ATENOLOL 50 MG TABLET (FP) PO SCH (09:18)
[2018-04-09] MEDS: FLUoxetine HCL 20 MG CAPSULE (FP) PO SCH (09:18)
[2018-04-09] MEDS: HEPARIN NA (PORCINE) 5,000 UNITS/ML 1ML VIAL SQ SCH ×2 (09:19→22:26)
[2018-04-09 09:45] LABS: MAGNESIUM 1.3 mg/dL (1.8-2.4)
[2018-04-09] MEDS ORDERED: PT OWN MED DRAWER 7, Y5N ONE (09:46)
[2018-04-09] MEDS ORDERED: amLODIPine BESYLATE 5 MG TABLET (FP) PO SCH (10:00)
[2018-04-09] MEDS ORDERED: PANTOPRAZOLE 20 MG TABLET (FP) PO SCH (10:00)
--- NOTE | 2018-04-09 10:32 | EKG ---
Test Reason : Blood Pressure : / mmHG Vent. Rate : 075 BPM Atrial Rate : 075 BPM P-R Int : 204 ms QRS Dur : 094 ms QT Int : 432 ms P-R-T Axes : 050 029 040 degrees QTc Int : 482 ms NORMAL SINUS RHYTHM WITH SINUS ARRHYTHMIA PROLONGED QT ABNORMAL ECG WHEN COMPARED WITH ECG OF 10-JAN-2017 15:43, T WAVE VARIATION Confirmed by BRETT YOUNG MD ([id number]) on 04/09/2018 10:32:05 AM Referred By: Vic URBINA Confirmed By:BRETT YOUNG MD
--- NOTE | 2018-04-09 10:42 | CON.CARD ---
Consult Consult Specialty:: cardio - History of Present Illness Chief Complaint: sob History of Present Illness: 77 F admitted with food impaction, with known Shatzki ring. had food bolus withdrawn endoscopically here. noted to be in [place] with mild unilateral hydro--renal and following. developed sob with cough, wheezing and rhonchi on exam. seen by pulm--? retrocardiac opacity on CXR, for CT chest. treated for PNA, ? aspiration. 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 no wheezing. also new leg/feet swelling intermittently during this time--resolved with elevated. sob feels much better today--mild when walks around. never had cp/pressure no wheezing PMH: lung cancer s/p lobectomy (MELI) HTN - Past Medical History Cardio/Vascular: Yes: HTN, Hyperlipdemia Pulmonary: Yes: Other (MELI lobectomy for lung cancer 2008) Gastrointestinal: Yes: Cancer (anal cancer 2002), Hiatal Hernia (schatzki ring) , Other (anal cancer, dilation of esophageal stricture 2015) Renal/: Yes: Renal Inusuff, Other (radiation cystitis) Psych: Yes: Depression - Past Surgical History Past Surgical History: Yes: Cataract Removal, Colonoscopy, Hysterectomy - Alcohol/Substance Use Hx Alcohol Use: No - Smoking History Smoking history: Former smoker Have you smoked in the past 12 months: No If you are a former smoker, when did you quit?: 35 years ago - Social History Usual Living Arrangement: Alone () ADL: Independent 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, 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 Travel: No Home Medications - Allergies Allergies/Adverse Reactions: Allergies Allergy/AdvReac Type Severity Reaction Status Date / Time meperidine HCl [From Demerol] Allergy Rash Verified 04/05/18 11:29 - Home Medications Home Medications: Ambulatory Orders Amlodipine Besylate [Norvasc -] 10 mg PO DAILY 05/29/15 Aspirin [Aspirin EC] 81 mg PO DAILY 05/29/15 Atenolol [Tenormin -] 100 mg PO DAILY 05/29/15 Atorvastatin Ca [Lipitor] 10 mg PO HS 05/29/15 Fluoxetine HCl [Prozac] 40 mg PO DAILY 05/29/15 Pantoprazole Sodium [Protonix -] 40 mg PO DAILY #30 tablet.ec 06/03/15 Diphenoxylate 2.5/Atropine.025 [Lomotil -] 2 combo PO Q6H PRN 04/05/18 Olmesartan/Hydrochlorothiazide [Olmesartan-Hctz 40-25 mg Tab] 1 each PO DAILY Family Disease History - Family Disease History Family Disease History: CA: Father ( 83: Brain tumor), Mother ( 89: breast and esophageal cancers), Brother (2, 1 with colon cancer, lung cancer), Other: Brother, Sister (2) Review of Systems - Review of Systems Constitutional: denies: Chills, Fever Eyes: denies: Eye Pain HENT: denies: Nasal Congestion Neck: denies: Stiffness Cardiovascular: denies: Palpitations Respiratory: denies: Orthopnea, PND Gastrointestinal: denies: Diarrhea, Rectal Bleeding Genitourinary: denies: Burning, Hematuria Musculoskeletal: denies: Muscle Pain Integumentary: denies: Rash Neurological: denies: Numbness, Seizure, Syncope Endocrine: denies: Excessive Sweating Hematology/Lymphatic: denies: Excessive Bleeding Vital Signs: Vital Signs Temperature 98.3 F 04/09/18 06:00 Pulse Rate 85 04/09/18 06:00 Respiratory Rate 18 04/09/18 06:00 Blood Pressure 139/73 04/09/18 06:00 O2 Sat by Pulse Oximetry (%) 92 L 04/08/18 21:00 Constitutional: Yes: Well Nourished, No Distress Eyes: No: Sclera Icterus HENT: No: Nasal Congestion Neck: No: Decreased ROM Respiratory: Yes: CTA Bilaterally, Diminished (MELI). No: Accessory Muscle Use, Rales, Wheezes Gastrointestinal: Yes: Normal Bowel Sounds. No: Distention, Hepatomegaly, Palpable Mass, Tenderness Cardiovascular: Yes: Regular Rate and Rhythm JVD: Yes Carotid Bruit: No PMI: Non-Displaced Heart Sounds: Yes: S1, S2. No: Gallop Murmur: No: Systolic Murmur, Diastolic Murmur Musculoskeletal: Yes: Other (No kyphosis) Extremities: No: Cold, Cyanosis Edema: No Peripheral Pulses: 2+ Left Carotid, 2+ Right Carotid, 2+ Left Doralis Pedis, 2+ Right Dorsalis Pedis Integumentary: No: Jaundice Neurological: Yes: Alert, Oriented (x3) Psychiatric: No: Agitated - Other Data Labs, Other Data: CBC, BMP 04/09/18 05:25 04/09/18 05:25 INR, PTT INR 1.00 (0.83-1.09) 04/05/18 13:30 Troponin, BNP 04/08/18 04/09/18 08:20 05:25 Troponin I < 0.02 B-Natriuretic Peptide 30812.4 H 23745.2 H Troponin, BNP 04/08/18 04/09/18 08:20 05:25 Troponin I < 0.02 B-Natriuretic Peptide 64086.4 H 49715.2 H Laboratory Tests 04/05/18 04/08/18 04/09/18 13:30 08:20 05:25 WBC 7.1 Hgb 8.8 L Plt Count 163 Sodium Potassium Carbon Dioxide BUN Creatinine 2.5 H ALT Alkaline Phosphatase Troponin I < 0.02 B-Natriuretic Peptide Albumin 04/09/18 05:25 WBC Hgb Plt Count Sodium 139 Potassium 3.6 Carbon Dioxide 27 BUN 20 H Creatinine 1.8 H ALT 16 Alkaline Phosphatase 91 Troponin I B-Natriuretic Peptide 37222.2 H Albumin 2.8 L Assessment/Plan ECG 04/08: NSR, mildly prolonged QT (unchanged vs prior), nonsp ST-Ts anterior leads--these are accentuated vs prior 12/2016 (but were present then) CXR 04/08: progressive L infiltrate. diffuse interstitial markings, no vascular redistribution fever, sob, cough, wheezes, hypoxia, acute on chronic CHF: -? aspiration pneumonitis vs CAP. CXR 04/08 with L infiltrate, fever to >101 on -followup CT, abx and supportive care per pulm -suspect subacute CHF for few weeks, acutely worse here after IVF received: BNP 13K (no priors). +JVD -doubt PE in setting of sx's ongoing several weeks, and + abnormal CXR with clinical findings of infection and CHF. deferring CTA chest given GFR <30. -f/u echo (including for RV), CT chest today. -given lasix 20 iv yest--noted good diuretic effect. renal fxn stable. will give test dose 40 IV today -ECG with nonspecific ST-T changes vs prior. trop neg x2 [place] on CKD: -creat initially up, now back to baseline range (1.5-1.9) -monitor closely with diuresis HTN: -bp controlled -same plan
--- NOTE | 2018-04-09 10:51 | PN ---
Progress Note, Physician History of Present Illness: pulmonary alert,feeling better,less dyspneic,+cough - Current Medication List Current Medications: Active Medications Acetaminophen (Tylenol -) 650 mg PO Q4H PRN PRN Reason: FEVER Last Admin: 04/08/18 16:30 Dose: 650 mg Albuterol Sulfate (Ventolin 0.083% Nebulizer Soln -) 1 amp NEB Q6H PRN PRN Reason: SHORT OF BREATH/WHEEZING Albuterol/Ipratropium (Duoneb -) 1 amp NEB RQID [facility] Last Admin: 04/09/18 07:55 Dose: 1 amp Amlodipine Besylate (Norvasc -) 5 mg PO DAILY [facility] Last Admin: 04/09/18 09:19 Dose: 5 mg Atenolol (Tenormin -) 50 mg PO DAILY [facility] Last Admin: 04/09/18 09:18 Dose: 50 mg Atorvastatin Calcium (Lipitor -) 10 mg PO HS [facility] Last Admin: 04/08/18 21:59 Dose: 10 mg Fluoxetine HCl (Prozac -) 40 mg PO DAILY [facility] Last Admin: 04/09/18 09:18 Dose: 40 mg Heparin Sodium (Porcine) (Heparin -) 5,000 unit SQ BID [facility] Last Admin: 04/09/18 09:19 Dose: 5,000 unit Ampicillin Sodium/Sulbactam (Sodium 3 gm/ Sodium Chloride) 100 mls @ 200 mls/ hr IVPB Q8H-IV [facility] Last Admin: 04/09/18 01:13 Dose: 200 mls/hr Methylprednisolone Sodium Succinate (Solu-Medrol -) 40 mg IVPUSH Q8H-IV [facility] Last Admin: 04/09/18 09:19 Dose: 40 mg Ondansetron HCl (Zofran Injection) 8 mg IVPB Q8H PRN PRN Reason: NAUSEA AND/OR VOMITING Last Admin: 04/08/18 12:35 Dose: 8 mg Pantoprazole Sodium (Protonix -) 20 mg PO DAILY [facility] Last Admin: 04/09/18 09:18 Dose: 20 mg - Objective Vital Signs: Vital Signs Temperature 98.3 F 04/09/18 06:00 Pulse Rate 85 04/09/18 06:00 Respiratory Rate 18 04/09/18 06:00 Blood Pressure 139/73 04/09/18 06:00 O2 Sat by Pulse Oximetry (%) 92 L 02/17/19 21:00 Constitutional: Yes: Well Nourished, Calm Eyes: Yes: WNL HENT: Yes: WNL Neck: Yes: WNL Cardiovascular: Yes: Regular Rate and Rhythm, S1, S2 Respiratory: Yes: Rales (bilateral rales) Gastrointestinal: Yes: Normal Bowel Sounds, Soft Extremities: Yes: WNL Edema: Yes Labs: CBC, BMP 04/09/18 05:25 04/09/18 05:25 INR, PTT INR 1.00 (0.83-1.09) 04/05/18 13:30 - ....Imaging Chest X-ray: Report Reviewed, Image Reviewed Assessment/Plan Assessment/Plan Acute Hypoxic Respiratory Failure Esophageal Impaction s/p EGD Pneumonia ? aspiration UTI Sepsis Acute on Chronic Renal Failure h/o Lung Ca s/p MELI lobectomy h/o Anal Ca HTN - antibiotics - O2 to keep Spo2 >90% - CT chest noncontrast - inhaled bronchodilators - DVT prophylaxis - duplex lower extremities DR VEGA
[2018-04-09] MEDS: ACETAMINOPHEN 325 MG TABLET (FP) PO PRN (10:56)
--- NOTE | 2018-04-09 11:43 | PN ---
Progress Note, Physician Chief Complaint: transferred to telemetry b/o hypoxia; received IV steroids, IV ATB, ICV lasix x 1 and nebs feeling better now all tests and consults d/w pt - Current Medication List Current Medications: Active Medications Acetaminophen (Tylenol -) 650 mg PO Q4H PRN PRN Reason: FEVER Last Admin: 04/09/18 10:56 Dose: 650 mg Albuterol Sulfate (Ventolin 0.083% Nebulizer Soln -) 1 amp NEB Q6H PRN PRN Reason: SHORT OF BREATH/WHEEZING Albuterol/Ipratropium (Duoneb -) 1 amp NEB RQID [facility] Last Admin: 04/09/18 07:55 Dose: 1 amp Amlodipine Besylate (Norvasc -) 5 mg PO DAILY [facility] Last Admin: 04/09/18 09:19 Dose: 5 mg Atenolol (Tenormin -) 50 mg PO DAILY [facility] Last Admin: 04/09/18 09:18 Dose: 50 mg Atorvastatin Calcium (Lipitor -) 10 mg PO HS [facility] Last Admin: 04/08/18 21:59 Dose: 10 mg Fluoxetine HCl (Prozac -) 40 mg PO DAILY [facility] Last Admin: 04/09/18 09:18 Dose: 40 mg Heparin Sodium (Porcine) (Heparin -) 5,000 unit SQ BID [facility] Last Admin: 04/09/18 09:19 Dose: 5,000 unit Ampicillin Sodium/Sulbactam (Sodium 3 gm/ Sodium Chloride) 100 mls @ 200 mls/ hr IVPB Q8H-IV [facility] Last Admin: 04/09/18 10:56 Dose: 200 mls/hr Methylprednisolone Sodium Succinate (Solu-Medrol -) 40 mg IVPUSH Q8H-IV [facility] Last Admin: 04/09/18 09:19 Dose: 40 mg Ondansetron HCl (Zofran Injection) 8 mg IVPB Q8H PRN PRN Reason: NAUSEA AND/OR VOMITING Last Admin: 04/08/18 12:35 Dose: 8 mg Pantoprazole Sodium (Protonix -) 20 mg PO DAILY [facility] Last Admin: 04/09/18 09:18 Dose: 20 mg - Objective Vital Signs: Vital Signs Temperature 98.3 F 04/09/18 06:00 Pulse Rate 85 04/09/18 06:00 Respiratory Rate 18 04/09/18 06:00 Blood Pressure 139/73 04/09/18 06:00 O2 Sat by Pulse Oximetry (%) 92 L 04/08/18 21:00 Constitutional: Yes: No Distress, Calm Eyes: Yes: Conjunctiva Clear HENT: Yes: Atraumatic Neck: Yes: Supple Cardiovascular: Yes: Regular Rate and Rhythm Respiratory: Yes: Diminished Gastrointestinal: Yes: Soft. No: Tenderness Genitourinary: No: CVA Tenderness - Left, CVA Tenderness - Right, Hematuria Musculoskeletal: No: Joint Stiffness, Joint Swelling Extremities: No: Cold, Cool Edema: No Integumentary: No: Rash, Venous Stasis Changes Neurological: Yes: WNL, Alert, Oriented ...Motor Strength: WNL Psychiatric: Yes: WNL, Alert, Oriented Labs: CBC, BMP 04/09/18 05:25 04/09/18 05:25 INR, PTT INR 1.00 (0.83-1.09) 04/05/18 13:30 - ....Imaging Other: Report Reviewed Assessment/Plan The patient is a 76 year old female with a significant PMH of HTN, cataracts, schatzki ring, lung cancer, and anal cancer (followed by ONC dr Blanc in COUNTS INCLUDE 234 BEDS AT THE [facility] ) admitted via emergency department with food impaction, s/p EGD then developed fever cough and nausea plus SOB after EGD IV ATB per ID ID, cardiology and pulmonary consults called check echo, CAP CT and legs venous US anemia w/u heme onc evvito d/w pt and staff
[2018-04-09] MEDS ORDERED: FUROSEMIDE 40 MG/4 ML INJECTABLE VIAL IVPUSH ONE (12:15)
--- NOTE | 2018-04-09 12:28 | CONSULT ---
Consultation: REQUESTING PROVIDER: Dr. Schuster CONSULT REQUEST: We have been asked to medically evaluate this patient for anemia. HISTORY OF PRESENT ILLNESS: This is a 77 year old female with a history of HTN, hiatal hernia (schatzki ring ), lung cancer 2009 s/p MELI lobectomy, and anal cancer in 2002, s/p chemo and radiation who presented with dysphagia after eating chicken. She was taken for emergent endoscopy for removal of food on 04/05. She then started to develop fever, sob, hypoxic, with leukocytosis and retrocardiac opacity on CXR, now being treated for aspiration pneumonia. Hemoglobin trending down after EGD. On admission heme was 13.6 -> 9.5->8.8 today. PMH: htn, cataracts, anal CA, lung CA, schatzki ring, depression PSH: S/P MELI lobectomy,dilation of esophageal stricture 2015 social : quit smoking years ago ; wine occasionally REVIEW OF SYSTEMS: CONSTITUTIONAL: Positive: fever Absent: fever, chills, diaphoresis, generalized weakness, malaise, loss of appetite, weight change HEENT: Absent: rhinorrhea, nasal congestion, throat pain, throat swelling, difficulty swallowing, mouth swelling, ear pain, eye pain, visual changes CARDIOVASCULAR: Absent: chest pain, syncope, palpitations, irregular heart rate, lightheadedness , peripheral edema RESPIRATORY: Positive: cough, shortness of breath, dyspnea with exertion, Absent: orthopnea, wheezing, stridor, hemoptysis GASTROINTESTINAL: Absent: abdominal pain, abdominal distension, nausea, vomiting, diarrhea, constipation, melena, hematochezia GENITOURINARY: Absent: dysuria, frequency, urgency, hesitancy, hematuria, flank pain, genital pain MUSCULOSKELETAL: Absent: myalgia, arthralgia, joint swelling, back pain, neck pain SKIN: Absent: rash, itching, pallor HEMATOLOGIC/IMMUNOLOGIC: Absent: easy bleeding, easy bruising, lymphadenopathy, frequent infections ENDOCRINE: Absent: unexplained weight gain, unexplained weight loss, heat intolerance, cold intolerance NEUROLOGIC: Absent: headache, focal weakness or paresthesias, dizziness, unsteady gait, seizure, mental status changes, bladder or bowel incontinence PSYCHIATRIC: Absent: anxiety, depression, suicidal or homicidal ideation, hallucinations. PHYSICAL EXAMINATION Vital Signs - 24 hr 04/08/18 04/08/18 04/08/18 14:00 18:09 21:00 Temperature 99.2 F 98.5 F 98.2 F Pulse Rate 79 83 81 Respiratory 18 22 H 19 Rate Blood Pressure 133/70 132/80 132/52 L O2 Sat by Pulse 92 L Oximetry (%) 04/09/18 04/09/18 04/09/18 02:03 06:00 09:00 Temperature 98.6 F 98.3 F Pulse Rate 84 85 Respiratory 18 18 18 Rate Blood Pressure 123/63 139/73 O2 Sat by Pulse 97 Oximetry (%) 04/09/18 10:00 Temperature 98.3 F Pulse Rate 82 Respiratory 18 Rate Blood Pressure 128/72 O2 Sat by Pulse Oximetry (%) GENERAL: Awake, alert, and fully oriented, in no acute distress. on NC oxygen HEAD: Normal with no signs of trauma. EYES: Pupils equal, round and reactive to light, extraocular movements intact, sclera anicteric, conjunctiva clear. No lid lag. EARS, NOSE, THROAT: Ears normal, nares patent, oropharynx clear without exudates. Moist mucous membranes. NECK: Normal range of motion, supple without lymphadenopathy, JVD, or masses. LUNGS: decreased breath sounds MELI; HEART: Regular rate and rhythm, normal S1 and S2 without murmur, rub or gallop. Breast/axilla: no lumps masses or nipple discharge ABDOMEN: Soft, nontender, not distended, normoactive bowel sounds, no guarding, no rebound, no masses. No hepatomegaly or splenomegaly. MUSCULOSKELETAL: Normal range of motion at all joints. No bony deformities or tenderness. No CVA tenderness. UPPER EXTREMITIES: 2+ pulses, warm, well-perfused. No cyanosis. No clubbing. Cap refill <2 seconds. No peripheral edema. LOWER EXTREMITIES: 2+ pulses, warm, well-perfused. No calf tenderness. No peripheral edema. NEUROLOGICAL: Cranial nerves II-XII intact. Normal speech.. PSYCHIATRIC: Cooperative. Good eye contact. Appropriate mood and affect. SKIN: scattered ecchymosis Laboratory Results - last 24 hr 04/08/18 04/09/18 04/09/18 08:20 05:25 05:25 WBC 7.1 RBC 2.63 L Hgb 8.8 L Hct 24.8 L MCV 94.2 MCH 33.6 MCHC 35.6 RDW 12.3 Plt Count 163 MPV 8.4 Absolute Neuts (auto) 6.4 Neutrophils % 90.9 H Lymphocytes % 5.9 L Monocytes % 3.1 L Eosinophils % 0.0 D Basophils % 0.1 Nucleated RBC % 0 Sodium 141 139 Potassium 3.9 3.6 Chloride 107 103 Carbon Dioxide 25 27 Anion Gap 9 9 BUN 21 H 20 H Creatinine 1.7 H 1.8 H Creat Clearance w eGFR 29.14 27.28 Random Glucose 94 149 H Calcium 7.4 L 7.8 L Magnesium 0.9 L 1.3 L Ferritin 231.9 Total Bilirubin 1.9 H 0.9 AST 19 19 ALT 15 16 Alkaline Phosphatase 85 91 Creatine Kinase 78 Troponin I < 0.02 < 0.02 B-Natriuretic Peptide 86455.4 H 21936.2 H Total Protein 5.4 L 5.7 L Albumin 2.9 L 2.8 L Vitamin B12 985 TSH 1.98 Active Medications Generic Name Dose Route Start Last Admin Trade Name Freq PRN Reason Stop Dose Admin Acetaminophen 650 mg 04/05/18 19:13 04/09/18 10:56 Tylenol - PO 650 mg Q4H PRN Administration FEVER Albuterol Sulfate 1 amp 04/08/18 10:59 Ventolin 0.083% Nebulizer Soln - NEB Q6H PRN SHORT OF BREATH/WHEEZING Albuterol/Ipratropium 1 amp 04/08/18 12:00 04/09/18 11:44 Duoneb - NEB 1 amp RQID [facility] Administration Amlodipine Besylate 5 mg 04/09/18 10:00 04/09/18 09:19 Norvasc - PO 5 mg DAILY [facility] Administration Atenolol 50 mg 04/06/18 10:00 04/09/18 09:18 Tenormin - PO 50 mg DAILY [facility] Administration Atorvastatin Calcium 10 mg 04/05/18 22:00 04/08/18 21:59 Lipitor - PO 10 mg HS [facility] Administration Fluoxetine HCl 40 mg 04/06/18 10:00 04/09/18 09:18 Prozac - PO 40 mg DAILY [facility] Administration Heparin Sodium (Porcine) 5,000 unit 04/08/18 11:00 04/09/18 09:19 Heparin - SQ 5,000 unit BID [facility] Administration Ampicillin Sodium/Sulbactam 100 mls @ 200 mls/hr 04/08/18 18:00 04/09/18 10: 56 Sodium 3 gm/ Sodium Chloride IVPB 200 mls/hr Q8H-IV [facility] Administration Methylprednisolone Sodium Succinate 40 mg 04/08/18 12:15 04/09/18 09:19 Solu-Medrol - IVPUSH 40 mg Q8H-IV [facility] Administration Ondansetron HCl 8 mg 04/07/18 16:37 04/08/18 12:35 Zofran Injection IVPB 8 mg Q8H PRN Administration NAUSEA AND/OR VOMITING Pantoprazole Sodium 40 mg 04/09/18 22:00 Protonix - PO BID [facility] ASSESSMENT/PLAN: This is a 77 year old female with a history of lung Ca s/p lobectomy; anal Ca s/ p radiation and chemotherapy, schatzki ring presenting with dysphagia afte getting chicken in her throat. S/p emergent EGD removal. Now anemia with aspiration pneumonia. Anemia; acute blood loss ? schatski ring; s/p EGD removal of food AKF right hypdronephrosis acute hypoxic respiratory failure aspiration pna -acute blood loss anemia vs hemolysis vs ineffective erythropoesis due to infection -hematocrit of 38 on admission may be hemoconcentrated due to dehydration -haptoglobin, ldh, retic coubnt, folate, direct jose luis -plan for repeat EGD although in light of hypoxia and aspiration pna; egd not emergent -will continue to follow blood counts; fobt; transfuse if heme <7 -gi, pulm, cardio, neph eval appreciated Dispo: We will continue to follow the patient. Thank you for this consultative opportunity. Visit type - Emergency Visit Emergency Visit: Yes ED Registration Date: 04/07/18 Care time: The patient presented to the Emergency Department on the above date and was hospitalized for further evaluation of their emergent condition. - New Patient This patient is new to me today: Yes Date on this admission: 04/09/18 - Critical Care Critical Care patient: No
--- NOTE | 2018-04-09 14:36 | PN ---
Progress Note (short form) - Note Progress Note: transferred to telemetry more comfortable today vomiting and nausea have resolved Vital Signs Period Temp Pulse Resp BP Sys/Toure Pulse Ox Last 24 Hr 98.2 F-98.6 F 81-85 18-22 123-139/52-80 92-97 cor-rrr lungs crackles right lung 1/3 way up abd soft,nt ext no edema CBC, BMP 04/09/18 05:25 04/09/18 05:25 Microbiology 04/07/18 17:00 Urine - Urine Clean Catch Urine Culture - Final NO GROWTH OBTAINED 04/08/18 17:30 Urine For Antigen Detection Legionella Antigen - Final 04/08/18 17:30 Urine For Antigen Detection Streptococcus pneumoniae Antigen (M - Final 04/07/18 17:30 Blood - Peripheral Venous Blood Culture - Preliminary NO GROWTH OBTAINED AFTER 24 HOURS, INCUBATION TO CONTINUE FOR 4 DAYS. 04/07/18 17:30 Blood - Peripheral Venous Blood Culture - Preliminary NO GROWTH OBTAINED AFTER 24 HOURS, INCUBATION TO CONTINUE FOR 4 DAYS. 04/06/18 13:30 Urine - Urine Clean Catch Urine Culture - Final Contaminated: Please Repeat imp/reccd 77 yo female admitted with food impaction (chicken), s/p endoscopy-04/06 +vomiting +hypoxia pneumonia LLL continue unasyn f/u chest ct dopplers negative for DVT heme to see for anemia Problem List - Problems (1) Aspiration pneumonia Code(s): J69.0 - PNEUMONITIS DUE TO INHALATION OF FOOD AND VOMIT (2) Esophageal obstruction due to food impaction Code(s): K22.2 - ESOPHAGEAL OBSTRUCTION; T18.128A - FOOD IN ESOPHAGUS CAUSING OTHER INJURY, INITIAL ENCOUNTER (3) Acute kidney injury superimposed on CKD Code(s): N17.9 - ACUTE KIDNEY FAILURE, UNSPECIFIED; N18.9 - CHRONIC KIDNEY DISEASE, UNSPECIFIED
--- NOTE | 2018-04-09 16:00 | PN ---
Progress Note, Physician History of Present Illness: Pt seen and examined at bedside. She is awake and alert. She feels that her breathing is better than it was yesterday, she does however still has shortness of breath. - Current Medication List Current Medications: Active Medications Acetaminophen (Tylenol -) 650 mg PO Q4H PRN PRN Reason: FEVER Last Admin: 04/09/18 10:56 Dose: 650 mg Albuterol Sulfate (Ventolin 0.083% Nebulizer Soln -) 1 amp NEB Q6H PRN PRN Reason: SHORT OF BREATH/WHEEZING Albuterol/Ipratropium (Duoneb -) 1 amp NEB RQID [facility] Last Admin: 04/09/18 15:29 Dose: 1 amp Amlodipine Besylate (Norvasc -) 5 mg PO DAILY [facility] Last Admin: 04/09/18 09:19 Dose: 5 mg Atenolol (Tenormin -) 50 mg PO DAILY [facility] Last Admin: 04/09/18 09:18 Dose: 50 mg Atorvastatin Calcium (Lipitor -) 10 mg PO HS [facility] Last Admin: 04/08/18 21:59 Dose: 10 mg Fluoxetine HCl (Prozac -) 40 mg PO DAILY [facility] Last Admin: 04/09/18 09:18 Dose: 40 mg Heparin Sodium (Porcine) (Heparin -) 5,000 unit SQ BID [facility] Last Admin: 04/09/18 09:19 Dose: 5,000 unit Ampicillin Sodium/Sulbactam (Sodium 3 gm/ Sodium Chloride) 100 mls @ 200 mls/ hr IVPB Q8H-IV [facility] Last Admin: 04/09/18 10:56 Dose: 200 mls/hr Methylprednisolone Sodium Succinate (Solu-Medrol -) 40 mg IVPUSH Q8H-IV [facility] Last Admin: 04/09/18 09:19 Dose: 40 mg Ondansetron HCl (Zofran Injection) 8 mg IVPB Q8H PRN PRN Reason: NAUSEA AND/OR VOMITING Last Admin: 04/08/18 12:35 Dose: 8 mg Pantoprazole Sodium (Protonix -) 40 mg PO BID [facility] - Objective Vital Signs: Vital Signs Temperature 98.6 F 04/09/18 14:00 Pulse Rate 88 04/09/18 14:00 Respiratory Rate 20 04/09/18 14:00 Blood Pressure 126/71 04/09/18 14:00 O2 Sat by Pulse Oximetry (%) 97 04/09/18 09:00 Constitutional: Yes: Calm Eyes: Yes: Conjunctiva Clear HENT: Yes: Atraumatic Neck: Yes: Supple Cardiovascular: Yes: S1, S2 Respiratory: Yes: On Nasal O2, Rhonchi Gastrointestinal: Yes: Soft Genitourinary: Yes: WNL Musculoskeletal: Yes: WNL Edema: No Neurological: Yes: Oriented Psychiatric: Yes: Oriented Labs: CBC, BMP 04/09/18 05:25 04/09/18 05:25 INR, PTT INR 1.00 (0.83-1.09) 04/05/18 13:30 Problem List - Problems (1) Food impaction of esophagus Code(s): T18.128A - FOOD IN ESOPHAGUS CAUSING OTHER INJURY, INITIAL ENCOUNTER Qualifiers: Encounter type: initial encounter Qualified Code(s): T18.128A - Food in esophagus causing other injury, initial encounter (2) History of anal cancer Code(s): Z85.048 - PRSNL HX OF MALIG NEOPLM OF RECTUM, RECTOSIG JUNCT, AND ANUS (3) Renal insufficiency Code(s): N28.9 - DISORDER OF KIDNEY AND URETER, UNSPECIFIED (4) Schatzki's ring Code(s): K22.2 - ESOPHAGEAL OBSTRUCTION Assessment/Plan Current Medications Generic Name Dose Route Start Last Admin Trade Name Freq PRN Reason Stop Dose Admin Acetaminophen 650 mg 04/05/18 19:13 04/09/18 10:56 Tylenol - PO 650 mg Q4H PRN Administration FEVER Albuterol Sulfate 1 amp 04/08/18 10:59 Ventolin 0.083% Nebulizer Soln - NEB Q6H PRN SHORT OF BREATH/WHEEZING Albuterol/Ipratropium 1 amp 04/08/18 12:00 04/09/18 15:29 Duoneb - NEB 1 amp RQID [facility] Administration Amlodipine Besylate 5 mg 04/09/18 10:00 04/09/18 09:19 Norvasc - PO 5 mg DAILY [facility] Administration Atenolol 50 mg 04/06/18 10:00 04/09/18 09:18 Tenormin - PO 50 mg DAILY [facility] Administration Atorvastatin Calcium 10 mg 04/05/18 22:00 04/08/18 21:59 Lipitor - PO 10 mg HS [facility] Administration Fluoxetine HCl 40 mg 04/06/18 10:00 04/09/18 09:18 Prozac - PO 40 mg DAILY [facility] Administration Heparin Sodium (Porcine) 5,000 unit 04/08/18 11:00 04/09/18 09:19 Heparin - SQ 5,000 unit BID [facility] Administration Ampicillin Sodium/Sulbactam 100 mls @ 200 mls/hr 04/08/18 18:00 04/09/18 10: 56 Sodium 3 gm/ Sodium Chloride IVPB 200 mls/hr Q8H-IV [facility] Administration Methylprednisolone Sodium Succinate 40 mg 04/08/18 12:15 04/09/18 09:19 Solu-Medrol - IVPUSH 40 mg Q8H-IV [facility] Administration Ondansetron HCl 8 mg 04/07/18 16:37 04/08/18 12:35 Zofran Injection IVPB 8 mg Q8H PRN Administration NAUSEA AND/OR VOMITING Pantoprazole Sodium 40 mg 04/09/18 22:00 Protonix - PO BID [facility] Impression 1. WESTON 2. CKD 3. lung cancer 4. hypokalemia 5. htn 6. hld 7. schatzki ring 8. hydronephrosis 9. UTI Plan - monitor renal function - cont with lasix - will evaluate daily - cardio input appreciated - monitor pulse ox - potassium is also improved
--- NOTE | 2018-04-09 17:18 | PN ---
Teaching Attending Note Name of Resident: Franchesca Jacob ATTENDING PHYSICIAN STATEMENT I saw and evaluated the patient. I reviewed the resident's note and discussed the case with the resident. I agree with the resident's findings and plan as documented. SUBJECTIVE: patient seen and examined Lying comfortably in bed - flat Last Vital Signs Temp Pulse Resp BP Pulse Ox 98.6 F 88 20 126/71 97 04/09/18 14:00 04/09/18 14:00 04/09/18 14:00 04/09/18 14:00 04/09/18 09:00 HEENT: DANTE, EOM Intact Oropharynx: No thrush, No mucositis Neck: Supple Nodes: Without adenopathy Breasts: Without masses Cor: RSR, No murmurs, No gallops Lungs: decrease breath sounds MELI anteriorly; rales LLL Abd: Soft, Normal bowel sounds, No organomegaly Ext:No significant edema Skin: No rashes, Integument intact CBC, BMP 04/09/18 05:25 04/09/18 05:25 Current Medications Generic Name Dose Route Start Last Admin Trade Name Freq PRN Reason Stop Dose Admin Acetaminophen 650 mg 04/05/18 19:13 04/09/18 10:56 Tylenol - PO 650 mg Q4H PRN Administration FEVER Albuterol Sulfate 1 amp 04/08/18 10:59 Ventolin 0.083% Nebulizer Soln - NEB Q6H PRN SHORT OF BREATH/WHEEZING Albuterol/Ipratropium 1 amp 04/08/18 12:00 04/09/18 15:29 Duoneb - NEB 1 amp RQID [facility] Administration Amlodipine Besylate 5 mg 04/09/18 10:00 04/09/18 09:19 Norvasc - PO 5 mg DAILY [facility] Administration Atenolol 50 mg 04/06/18 10:00 04/09/18 09:18 Tenormin - PO 50 mg DAILY [facility] Administration Atorvastatin Calcium 10 mg 04/05/18 22:00 04/08/18 21:59 Lipitor - PO 10 mg HS [facility] Administration Fluoxetine HCl 40 mg 04/06/18 10:00 04/09/18 09:18 Prozac - PO 40 mg DAILY [facility] Administration Heparin Sodium (Porcine) 5,000 unit 04/08/18 11:00 04/09/18 09:19 Heparin - SQ 5,000 unit BID [facility] Administration Ampicillin Sodium/Sulbactam 100 mls @ 200 mls/hr 04/08/18 18:00 04/09/18 10: 56 Sodium 3 gm/ Sodium Chloride IVPB 200 mls/hr Q8H-IV [facility] Administration Methylprednisolone Sodium Succinate 40 mg 04/08/18 12:15 04/09/18 09:19 Solu-Medrol - IVPUSH 40 mg Q8H-IV [facility] Administration Ondansetron HCl 8 mg 04/07/18 16:37 04/08/18 12:35 Zofran Injection IVPB 8 mg Q8H PRN Administration NAUSEA AND/OR VOMITING Pantoprazole Sodium 40 mg 04/09/18 22:00 Protonix - PO BID [facility] OBJECTIVE:impression: Falling Hct since admission. ? initial hb/Hct spurious or hemoconcentrated . Since initial value further fall in Hb/HCT Patient with WESTON/CKD, ineffective erythropoiesis, infection/pneumonia , blood letting all contributing to low Hb/Hct. ? component of blood loss and obligatory to exclude hemolysis in the setting of falling values. Screening tests ordered .Stool guaics pending . Fe++ studies not available , although elevated ferritin supports chronic disease component To follow up ASSESSMENT AND PLAN:
[2018-04-09 17:47] LABS: HEMATOCRIT 27.9 % (32.4-45.2); HEMOGLOBIN 10.2 GM/dL (10.7-15.3); MCH 34.6 pg (25.7-33.7); MCHC 36.5 g/dl (32.0-36.0); MEAN CELL VOLUME 94.8 fl (80-96); MEAN PLT VOLUME 8.3 fl (7.5-11.1); PLATELET COUNT 239 K/MM3 (134-434); RBC 2.94 M/mm3 (3.60-5.2); RDW 12.4 % (11.6-15.6); WHITE BLOOD COUNT 10.3 K/mm3 (4.0-10.0)
[2018-04-09 19:30] LABS: LDH 202 U/L (84-246)
--- NOTE | 2018-04-09 21:10 | PN ---
GI Progress Note Subjective: GI NOte> No swallowing difficulties but remains dyspneic. Hypoxemia noted,. CXR did reveal retrocardiac infiltrate. Hb dwindling but no melena of hematemesis reported. 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 Benitez Blankenship who did her colonoscopy just 1 year ago.I have discussed the possible need for a repeat EGD of her Hb continues to drop and appears to be of GI origin. I have again explained the risks of perforation and hemorrhage and that the largest risk is for giving anesthesia while hypoxemic due to pneumonia. She has signed consent in the event that emergent endoscopy becomes necessary. - Objective Vital Signs: Vital Signs Temperature 98.4 F 04/09/18 17:30 Pulse Rate 85 04/09/18 17:30 Respiratory Rate 20 04/09/18 17:30 Blood Pressure 127/66 04/09/18 17:30 O2 Sat by Pulse Oximetry (%) 97 04/09/18 09:00 Laboratory Tests 04/05/18 04/07/18 04/09/18 13:30 07:00 05:25 Hgb 13.6 9.5 L 8.8 L Constitutional: Anxious ...Auscultate: Yes: Normoactive Bowel Sounds ...Palpate: Yes: Soft, Other (nontender) Labs: CBC, BMP 04/09/18 17:00 04/09/18 05:25 INR, PTT INR 1.00 (0.83-1.09) 04/05/18 13:30 Assessment/Plan Impression: Esophageal meat impaction due to Schatzki ring Apsiration pneumonia Renal failure ? prerenal Progressive anemia ? late bleeding from esophagus tear Plan; Consent obtaned for EGD if GI bleeding becomes evident. Will refrain for now given the risks with pneumonia Continue antibiotics Harika will see Dr Benitez Kimbrough for Schatzki ring dilation after discharge Problem List - Problems (1) Hydronephrosis Code(s): N13.30 - UNSPECIFIED HYDRONEPHROSIS (2) Food impaction of esophagus Code(s): T18.128A - FOOD IN ESOPHAGUS CAUSING OTHER INJURY, INITIAL ENCOUNTER Qualifiers: Encounter type: initial encounter Qualified Code(s): T18.128A - Food in esophagus causing other injury, initial encounter (3) History of anal cancer Code(s): Z85.048 - PRSNL HX OF MALIG NEOPLM OF RECTUM, RECTOSIG JUNCT, AND ANUS (4) History of lung cancer Code(s): Z85.118 - PERSONAL HISTORY OF MALIGNANT NEOPLASM OF BRONCHUS AND LUNG (5) Renal insufficiency Code(s): N28.9 - DISORDER OF KIDNEY AND URETER, UNSPECIFIED (6) Schatzki's ring Code(s): K22.2 - ESOPHAGEAL OBSTRUCTION (7) Aspiration pneumonia Code(s): J69.0 - PNEUMONITIS DUE TO INHALATION OF FOOD AND VOMIT (8) Esophageal obstruction due to food impaction Code(s): K22.2 - ESOPHAGEAL OBSTRUCTION; T18.128A - FOOD IN ESOPHAGUS CAUSING OTHER INJURY, INITIAL ENCOUNTER
[2018-04-09] MEDS: PANTOPRAZOLE 40 MG TABLET (FP) PO SCH (22:26)
[2018-04-09] MEDS: ATORVASTATIN CA 10 MG TABLET (FP) PO SCH (22:27)
[2018-04-09] MEDS ORDERED: diphenhydrAMINE HCL 25 MG CAPSULE (FP) PO ONE (23:30)
[2018-04-10] MEDS: methylPREDNISolone NA SUCC 40 MG/1 ML VIAL IVPUSH SCH ×3 (02:54→18:10)
[2018-04-10] MEDS: AMPICILLIN NA/SULBACTAM NA 3 GM in SODIUM CHLORIDE 100 ML IVPB SCH ×3 (02:54→18:51)
[2018-04-10 06:31] LABS: HEMATOCRIT 25.2 % (32.4-45.2); HEMOGLOBIN 9.1 GM/dL (10.7-15.3); MCH 33.6 pg (25.7-33.7); MEAN CELL VOLUME 93.4 fl (80-96); RDW 12.7 % (11.6-15.6); WHITE BLOOD COUNT 7.7 K/mm3 (4.0-10.0)
[2018-04-10 06:56] LABS: ALK PHOS 87 U/L (45-117); ANION GAP 8 MMOL/L (8-16); BILIRUBIN,TOTAL 0.7 mg/dL (0.2-1); BLOOD UREA NITROGEN 21 mg/dL (7-18); CALCIUM 8.1 mg/dL (8.5-10.1); CHLORIDE 102 mmol/L (98-107); CO2 30 mmol/L (21-32); CREATININE 1.9 mg/dL (0.55-1.3); GLUCOSE,RANDOM 142 mg/dL (74-106); POTASSIUM 3.3 mmol/L (3.5-5.1); SGOT/AST 22 U/L (15-37); SGPT/ALT 19 U/L (13-61); SODIUM 140 mmol/L (136-145)
--- NOTE | 2018-04-10 08:13 | PN ---
Progress Note, Physician Chief Complaint: feeling better, asked for sleeping pill; benadryl prn ordered no SOB; had some swallowing problems with fluids will ask speech tx eval - Current Medication List Current Medications: Active Medications Acetaminophen (Tylenol -) 650 mg PO Q4H PRN PRN Reason: FEVER Last Admin: 04/09/18 10:56 Dose: 650 mg Albuterol Sulfate (Ventolin 0.083% Nebulizer Soln -) 1 amp NEB Q6H PRN PRN Reason: SHORT OF BREATH/WHEEZING Albuterol/Ipratropium (Duoneb -) 1 amp NEB RQID [facility] Last Admin: 04/09/18 20:03 Dose: 1 amp Amlodipine Besylate (Norvasc -) 5 mg PO DAILY [facility] Last Admin: 04/09/18 09:19 Dose: 5 mg Atenolol (Tenormin -) 50 mg PO DAILY [facility] Last Admin: 04/09/18 09:18 Dose: 50 mg Atorvastatin Calcium (Lipitor -) 10 mg PO HS [facility] Last Admin: 04/09/18 22:27 Dose: 10 mg Fluoxetine HCl (Prozac -) 40 mg PO DAILY [facility] Last Admin: 04/09/18 09:18 Dose: 40 mg Heparin Sodium (Porcine) (Heparin -) 5,000 unit SQ BID [facility] Last Admin: 04/09/18 22:26 Dose: 5,000 unit Ampicillin Sodium/Sulbactam (Sodium 3 gm/ Sodium Chloride) 100 mls @ 200 mls/ hr IVPB Q8H-IV [facility] Last Admin: 04/10/18 02:54 Dose: 200 mls/hr Methylprednisolone Sodium Succinate (Solu-Medrol -) 40 mg IVPUSH Q8H-IV [facility] Last Admin: 04/10/18 02:54 Dose: 40 mg Ondansetron HCl (Zofran Injection) 8 mg IVPB Q8H PRN PRN Reason: NAUSEA AND/OR VOMITING Last Admin: 04/08/18 12:35 Dose: 8 mg Pantoprazole Sodium (Protonix -) 40 mg PO BID [facility] Last Admin: 04/09/18 22:26 Dose: 40 mg Potassium Chloride (K-Dur -) 40 meq PO ONCE ONE Stop: 04/10/18 08:13 Potassium Chloride (K-Dur -) 10 meq PO DAILY [facility] - Objective Vital Signs: Vital Signs Temperature 98.4 F 04/10/18 05:00 Pulse Rate 82 04/10/18 05:00 Respiratory Rate 20 04/10/18 05:00 Blood Pressure 133/78 04/10/18 05:00 O2 Sat by Pulse Oximetry (%) 97 04/09/18 09:00 Constitutional: Yes: No Distress, Calm Eyes: Yes: Conjunctiva Clear HENT: Yes: Atraumatic Neck: Yes: Supple Cardiovascular: Yes: Regular Rate and Rhythm Respiratory: Yes: CTA Bilaterally Gastrointestinal: Yes: Soft. No: Tenderness Genitourinary: No: CVA Tenderness - Left, CVA Tenderness - Right Musculoskeletal: No: Joint Stiffness, Joint Swelling Extremities: No: Cold, Cool, Cyanosis Edema: No Integumentary: No: Rash, Venous Stasis Changes Neurological: Yes: WNL, Alert, Oriented ...Motor Strength: WNL Psychiatric: Yes: WNL, Alert, Oriented. No: Agitated, Suicidal Ideation Labs: CBC, BMP 04/10/18 05:30 04/10/18 05:30 INR, PTT INR 1.00 (0.83-1.09) 04/05/18 13:30 - ....Imaging Other: Report Reviewed Assessment/Plan The patient is a 76 year old female with a significant PMH of HTN, cataracts, schatzki ring, lung cancer, and anal cancer (followed by ONC dr Blanc in [facility] ) admitted via emergency department with food impaction, s/p EGD then developed fever cough and nausea plus SOB after EGD IV ATB per ID ID, cardiology and pulmonary, renal f/u replete lytes f/u labs check echo, results pending CAP CT and legs venous US noted d.w pt speech eval anemia w/u heme onc eval d/w pt and staff
[2018-04-10] MEDS ORDERED: POTASSIUM CHLORIDE TABS 20 MEQ TABLET.ER (FP) PO ONE (08:15)
[2018-04-10] MEDS ORDERED: ACETAMINOPHEN 325 MG TABLET (FP) PO PRN (08:31)
[2018-04-10] MEDS ORDERED: ONDANSETRON 4 MG/2 ML VIAL IVPB PRN (08:31)
[2018-04-10] MEDS ORDERED: ALBUTEROL SO4 0.083% IH SOL 2.5 MG/3 ML VIAL.NEB. NEB PRN (08:31)
[2018-04-10] MEDS: ALBUTEROL SO4 2.5/IPRATROPIUM 0.5 INH SOL 3 ML VIAL.NEB. NEB SCH ×4 (08:45→21:05)
--- NOTE | 2018-04-10 09:55 | PN ---
Progress Note, Physician History of Present Illness: pulmonary alert,feeling better,dyspnea improving. - Current Medication List Current Medications: Active Medications Acetaminophen (Tylenol -) 650 mg PO Q4H PRN PRN Reason: FEVER Albuterol Sulfate (Ventolin 0.083% Nebulizer Soln -) 1 amp NEB Q6H PRN PRN Reason: SHORT OF BREATH/WHEEZING Albuterol/Ipratropium (Duoneb -) 1 amp NEB RQID [facility] Amlodipine Besylate (Norvasc -) 5 mg PO DAILY [facility] Atenolol (Tenormin -) 50 mg PO DAILY [facility] Atorvastatin Calcium (Lipitor -) 10 mg PO HS [facility] Fluoxetine HCl (Prozac -) 40 mg PO DAILY [facility] Heparin Sodium (Porcine) (Heparin -) 5,000 unit SQ BID [facility] Ampicillin Sodium/Sulbactam (Sodium 3 gm/ Sodium Chloride) 100 mls @ 200 mls/ hr IVPB Q8H-IV [facility] Methylprednisolone Sodium Succinate (Solu-Medrol -) 40 mg IVPUSH Q8H-IV [facility] Ondansetron HCl (Zofran Injection) 8 mg IVPB Q8H PRN PRN Reason: NAUSEA AND/OR VOMITING Pantoprazole Sodium (Protonix -) 40 mg PO BID [facility] Last Admin: 04/09/18 22:26 Dose: 40 mg Potassium Chloride (K-Dur -) 10 meq PO DAILY [facility] - Objective Vital Signs: Vital Signs Temperature 98.4 F 04/10/18 05:00 Pulse Rate 82 04/10/18 05:00 Respiratory Rate 20 04/10/18 05:00 Blood Pressure 133/78 04/10/18 05:00 O2 Sat by Pulse Oximetry (%) 97 04/09/18 09:00 Constitutional: Yes: Well Nourished, Calm Eyes: Yes: WNL HENT: Yes: WNL, Tonsillar Exudate Cardiovascular: Yes: Regular Rate and Rhythm, S1, S2 Respiratory: Yes: Rales (few bibasilar rales) Gastrointestinal: Yes: Normal Bowel Sounds, Soft Extremities: Yes: WNL Edema: Yes Labs: CBC, BMP 04/10/18 05:30 04/10/18 05:30 INR, PTT INR 1.00 (0.83-1.09) 04/05/18 13:30 - ....Imaging Cat Scan: Report Reviewed, Image Reviewed (LLL INFILTRATE) Problem List - Problems (1) Acute hypoxemic respiratory failure Code(s): J96.01 - ACUTE RESPIRATORY FAILURE WITH HYPOXIA (2) Acute kidney injury superimposed on CKD Code(s): N17.9 - ACUTE KIDNEY FAILURE, UNSPECIFIED; N18.9 - CHRONIC KIDNEY DISEASE, UNSPECIFIED (3) Aspiration pneumonia Code(s): J69.0 - PNEUMONITIS DUE TO INHALATION OF FOOD AND VOMIT (4) Food impaction of esophagus Code(s): T18.128A - FOOD IN ESOPHAGUS CAUSING OTHER INJURY, INITIAL ENCOUNTER Qualifiers: Encounter type: initial encounter Qualified Code(s): T18.128A - Food in esophagus causing other injury, initial encounter (5) Esophageal obstruction due to food impaction Code(s): K22.2 - ESOPHAGEAL OBSTRUCTION; T18.128A - FOOD IN ESOPHAGUS CAUSING OTHER INJURY, INITIAL ENCOUNTER (6) History of anal cancer Code(s): Z85.048 - PRSNL HX OF MALIG NEOPLM OF RECTUM, RECTOSIG JUNCT, AND ANUS (7) History of lung cancer Code(s): Z85.118 - PERSONAL HISTORY OF MALIGNANT NEOPLASM OF BRONCHUS AND LUNG (8) Hypertension Code(s): I10 - ESSENTIAL (PRIMARY) HYPERTENSION Assessment/Plan Assessment/Plan Acute Hypoxic Respiratory Failure improving Esophageal Impaction s/p EGD Pneumonia ? aspiration UTI Sepsis Acute on Chronic Renal Failure h/o Lung Ca s/p MELI lobectomy h/o Anal Ca HTN - antibiotics - O2 to keep Spo2 >90% - inhaled bronchodilators - DVT prophylaxis DR VEGA
[2018-04-10] MEDS: FLUoxetine HCL 20 MG CAPSULE (FP) PO SCH (10:20)
[2018-04-10] MEDS: amLODIPine BESYLATE 5 MG TABLET (FP) PO SCH (10:20)
[2018-04-10] MEDS: HEPARIN NA (PORCINE) 5,000 UNITS/ML 1ML VIAL SQ SCH ×2 (10:20→22:34)
[2018-04-10] MEDS: ATENOLOL 50 MG TABLET (FP) PO SCH (10:21)
[2018-04-10] MEDS: PANTOPRAZOLE 40 MG TABLET (FP) PO SCH ×2 (10:26→22:33)
--- NOTE | 2018-04-10 10:42 | PN ---
Progress Note (short form) - Note Progress Note: s: still some sob but improving, no chest pain, palps, dizziness Current Medications Acetaminophen (Tylenol -) 650 mg PO Q4H PRN PRN Reason: FEVER Albuterol Sulfate (Ventolin 0.083% Nebulizer Soln -) 1 amp NEB Q6H PRN PRN Reason: SHORT OF BREATH/WHEEZING Albuterol/Ipratropium (Duoneb -) 1 amp NEB RQID [facility] Amlodipine Besylate (Norvasc -) 5 mg PO DAILY [facility] Last Admin: 04/10/18 10:20 Dose: 5 mg Atenolol (Tenormin -) 50 mg PO DAILY [facility] Last Admin: 04/10/18 10:21 Dose: 50 mg Atorvastatin Calcium (Lipitor -) 10 mg PO HS [facility] Fluoxetine HCl (Prozac -) 40 mg PO DAILY [facility] Last Admin: 04/10/18 10:20 Dose: 40 mg Heparin Sodium (Porcine) (Heparin -) 5,000 unit SQ BID [facility] Last Admin: 04/10/18 10:20 Dose: 5,000 unit Ampicillin Sodium/Sulbactam (Sodium 3 gm/ Sodium Chloride) 100 mls @ 200 mls/ hr IVPB Q8H-IV [facility] Last Admin: 04/10/18 10:19 Dose: 200 mls/hr Methylprednisolone Sodium Succinate (Solu-Medrol -) 40 mg IVPUSH Q8H-IV [facility] Last Admin: 04/10/18 10:26 Dose: 40 mg Ondansetron HCl (Zofran Injection) 8 mg IVPB Q8H PRN PRN Reason: NAUSEA AND/OR VOMITING Pantoprazole Sodium (Protonix -) 40 mg PO BID [facility] Last Admin: 04/10/18 10:26 Dose: 40 mg Potassium Chloride (K-Dur -) 10 meq PO DAILY [facility] Vital Signs Period Temp Pulse Resp BP Sys/Toure Pulse Ox Last 24 Hr 98 F-98.6 F 80-88 20-20 126-138/66-78 Constitutional: Yes: Well Nourished, No Distress Eyes: No: Sclera Icterus HENT: No: Nasal Congestion Neck: No: Decreased ROM Respiratory: Yes: CTA Bilaterally, Diminished (MELI). No: Accessory Muscle Use, Rales, Wheezes Gastrointestinal: Yes: Normal Bowel Sounds. No: Distention, Hepatomegaly, Palpable Mass, Tenderness Cardiovascular: Yes: Regular Rate and Rhythm JVD: Yes Carotid Bruit: No PMI: Non-Displaced Heart Sounds: Yes: S1, S2. No: Gallop Murmur: No: Systolic Murmur, Diastolic Murmur Musculoskeletal: Yes: Other (No kyphosis) Extremities: No: Cold, Cyanosis Edema: No Peripheral Pulses: 2+ Left Carotid, 2+ Right Carotid, 2+ Left Doralis Pedis, 2+ Right Dorsalis Pedis Integumentary: No: Jaundice Neurological: Yes: Alert, Oriented (x3) Psychiatric: No: Agitated Assessment/Plan ECG 04/08: NSR, mildly prolonged QT (unchanged vs prior), nonsp ST-Ts anterior leads--these are accentuated vs prior 12/2016 (but were present then) CXR 04/08: progressive L infiltrate. diffuse interstitial markings, no vascular redistribution CT chest: L lower chest infiltrate, mild RLL ground glass opacity, sm R and tr L pleural effusions, enlarged lymph nodes, dilation main PA, ascending aorta borderline dilated 4 cm, tele: sinus, PVCs fever, sob, cough, wheezes, hypoxia, acute on chronic CHF: -? aspiration pneumonitis vs CAP. CXR 04/08 with L infiltrate, fever to >101 on -followup CT, abx and supportive care per pulm -suspect subacute CHF for few weeks, acutely worse here after IVF received: BNP 13K (no priors). +JVD -doubt PE in setting of sx's ongoing several weeks, and + abnormal CXR with clinical findings of infection and CHF. deferring CTA chest given GFR <30. -echo (including for RV) pending -given lasix 20 iv 04/08--noted good diuretic effect, received lasix 40 mg IV , - small effusions/mild congestion on CT chest - will give additional lasix 40 mg IV x 1, monitor Cr, weight -ECG with nonspecific ST-T changes vs prior. trop neg x2 [place] on CKD: -creat initially up, now back to baseline range (1.5-1.9) -monitor closely with diuresis HTN: -bp controlled -same plan
[2018-04-10] MEDS ORDERED: FUROSEMIDE 40 MG/4 ML INJECTABLE VIAL IVPUSH ONE (11:22)
[2018-04-10 12:25] LABS: ANISOCYTOSIS 0; MACROCYTOSIS 0; PLATELET ESTIMATE NORMAL
--- NOTE | 2018-04-10 14:02 | CONSULT ---
Admitting History and Physical - Primary Care Physician PCP: Shannon Schuster S - Admission History of Present Illness: 77 yo female admitted with food impaction (chicken), s/p endoscopy-04/06 +vomiting +hypoxia pneumonia [facility] GI-Impression: Esophageal meat impaction due to Schatzki ring Apsiration pneumonia Renal failure ? prerenal Progressive anemia ? late bleeding from esophagus tear Consent obtaned for EGD if GI bleeding becomes evident. Will refrain for now given the risks with pneumonia Continue antibiotics Harika will see Dr Benitez Kimbrough for Schatzki ring dilation after discharge Soft diet ordered by GI.with instructions to chew very well then swallow. Pt reported "gagging" on Amelia Juice. Selected Entries 04/09/18 04/09/18 04/09/18 02:03 06:00 10:00 Breakfast Supper Temperature 98.6 F 98.3 F 98.3 F 04/09/18 04/09/18 04/09/18 11:55 14:00 17:30 Breakfast 75% Supper Temperature 98.6 F 98.4 F 04/09/18 04/09/18 04/10/18 19:00 21:00 05:00 Breakfast Supper 75% Temperature 98.2 F 98.4 F 04/10/18 04/10/18 04/10/18 10:00 10:13 13:55 Breakfast 75% Supper Temperature 98 F 98 F Laboratory Tests 04/06/18 04/07/18 04/08/18 06:20 07:00 08:20 WBC 20.5 H 14.1 H 12.6 H 04/09/18 04/10/18 05:25 05:30 WBC 7.1 7.7 This is my first consult with this pt. Pt reports always eating small bites throughout the day, as she gets full and can't eat a lot at a time. She reports hang up in her pharynx with difficulty with swallow onset. She often reclines after eating. She denies weight loss or coughing while eating/drinking. History Source: Patient Limitations to Obtaining History: No Limitations - Past Medical History Cardiovascular: Yes: HTN, Hyperlipdemia Pulmonary: Yes: Other (MELI lobectomy for lung cancer 2008) Gastrointestinal: Yes: Cancer (anal cancer 2002), Hiatal Hernia (schatzki ring) , Other (anal cancer, dilation of esophageal stricture 2016) Renal/: Yes: Renal Inusuff, Other (radiation cystitis) Psych: Yes: Depression - Past Surgical History Past Surgical History: Yes: Cataract Removal, Colonoscopy, Hysterectomy - Smoking History Smoking history: Former smoker Have you smoked in the past 12 months: No If you are a former smoker, when did you quit?: 35 years ago - Alcohol/Substance Use Hx Alcohol Use: No - Social History ADL: Independent 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, 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 Travel: No History - Admission Reason For Visit: OBSTRUCTIN OF ESOPHAGUS DUE TO FOOD IMPACTION - Diagnostics X-ray: Report Reviewed CT Scan: Report Reviewed Other: Report Reviewed (Barium Swallow) - General Mental Status: Alert and Oriented, Awake and Alert, Able to Follow Commands Attention: Intact Ability to Follow Directions: Excellent Head/Neck Control: WFL - Hearing Hearing: Normal Hearing Aide: No With Patient: No Speech Evaluation - Communication Primary Language: POLISH Communication: Yes: Within Normal Limits Oral Expression Ability: Yes: No Impairment - Speech Production Able to Make Needs Known: Yes: WNL Intelligibility: Yes: WNL - Speech Characteristics Voice Loudness: Normal Voice Pitch: Yes: Normal Voice Phonatory-based Quality: Yes: Normal Speech Pattern: Normal Speech Clarity: < 100% Nasal Resonance: Normal Articulation: Yes: Precise - Language/Auditory Comprehension Follows: Yes: 2 Stage Simple Commands - Language/Verbal Expression Able to Respond to Simple Queries: Yes: WNL Able to Communicate Wants and Needs: Yes: WNL Functional Communication Status: Yes: WNL - 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 [employer] Memory: Yes: WNL Short Term Memory: Yes: WNL - Swallow Evaluation/Bedside Assessment Current Nutritional Intake: Soft, Thin Liquids Oral Secretions: Yes: WFL Dentition: Yes: Adequate Facial Symmetry at Rest: Symmetrical Facial Symmetry on Retraction: Symmetrical Facial Movement: Controlled Sensation: Normal Against Resistance Opening: Normal Against Resistance Closing: Normal Pucker Lips: Normal Smile: Normal Lingual Movement: Normal, Symmetric Lingual Speed of Movement: Normal Lingual Movement Strgth Against Opposition: Normal Lingual Movement Characteristics: Normal Velopharyngeal Movement: Normal Laryngeal Elevation: WFL Laryngeal Movement: Able to Palpate Rate of Intake: WFL Bolus Size: WFL Labial Seal: WFL Chewing: WFL Oral Prep Time: WFL A-P Transit: WFL Pocketing: None Timing of Swallow: WFL Coughing/Throat Clear: No Change in Voice: No Recommendations - Speech Evaluation, Impression/Plan Impression: Meat impaction, pending dilatation [facility] upon d/c.Pt reports possioble buildup of food? needing to eat small amounts thoughout the day. - Dysphagia Impressions/Plan Swallowing Skills: Impaired (Suspect Esophageal Dysphagia) Dysphagia Impressions: Ongoing Evaluation *Silent aspiration: cannot be R/O at bedside Dysphagia Treatment Plan: OOB for meals, OOB for 1 h. after meals Recommendations: MBS w Esophagus (as out pt, after dilated, unless swallowing gets worse), Other (Pt educated to drink before starting meal to lubricate swallowing structures, Moist foods, extra condiments/gravy, small bite, chew well,dollow with sips of liquid. Finish meal with liquid. Upright 1 hour after meals and no PO intake within 2 hours of bedtime, Avoid bending over/exercising after meals, Minimize Caffiene, carbonation, [place], Tomatoes, onions, spicy foods, high fat foods. Mediterranean diet/Alkaline water GERD precautions)
--- NOTE | 2018-04-10 14:04 | ECHO ---
Name: KAYA OROURKE Exam:Adult Echocardiogram Study Date: 04/10/2018 08:21 AM Age: 77 yrs Reason For Study: CHF Height: 65 in Weight: 172 lb BSA: 1.9 m2 MMode/2D Measurements & Calculations IVSd: 0.62 cm Ao root diam: 4.4 cm LVIDd: 5.9 cm LA dimension: 4.7 cm LVIDs: 3.1 cm ACS: 2.3 cm LVPWd: 1.00 cm IVSs: 1.2 cm LVPWs: 1.4 cm EDV(Teich): 170.3 ml ESV(Teich): 37.3 ml Doppler Measurements & Calculations MV E max doni: 96.7 cm/sec Ao V2 max: 146.4 cm/sec MV A max doni: 97.2 cm/sec Ao max P.6 mmHg MV E/A: 0.99 AI P1/2t: 442.7 msec AI max doni: 410.8 cm/sec MR max doni: 480.5 cm/sec AI max P.7 mmHg MR max P.7 mmHg AI dec slope: 271.8 cm/sec2 TR max doni: 344.2 cm/sec Med Peak E' Doni: 3.9 cm/sec TR max P.4 mmHg Med E/e': 24.8 RVSP(TR): 57.4 mmHg Lat Peak E' Doni: 4.9 cm/sec Lat E/e': 19.8 RAP systole: 10.0 mmHg Procedure A two-dimensional transthoracic echocardiogram with color flow and Doppler was performed. The study w as technically difficult with many images being suboptimal in quality. The patient was in normal sinus r hythm during the exam. Left Ventricle The left ventricular size, thickness and function are normal. Ejection Fraction = 65%. Diastolic dysf unction, Grade II, consistent with elevated left atrial pressure. Right Ventricle The right ventricle is normal in size and function. Atria The left atrium is moderately dilated. The right atrium is mildly dilated. Mitral Valve There is mild to moderate mitral annular calcification. There is mild to moderate mitral regurgitatio n. The mitral regurgitant jet is eccentrically directed. Tricuspid Valve The tricuspid valve is not well visualized, but is grossly normal. There is moderate tricuspid regurg itation. There is severe pulmonary hypertension. Aortic Valve The aortic valve opens well. The aortic valve is trileaflet. There is mild aortic sclerosis.;. No hemodynamically significant valvular aortic stenosis. Mild aortic regurgitation. Pulmonic Valve The pulmonic valve is not well visualized. Great Vessels Mild to moderate aortic root dilatation. Pericardium/Pleura There is no pericardial effusion. Interpretation Summary The study was technically difficult with many images being suboptimal in quality. The left ventricular size, thickness and function are normal The right ventricle is normal in size and function. The left atrium is moderately dilated. There is mild to moderate mitral annular calcification. The mitral regurgitant jet is eccentrically directed. There is moderate tricuspid regurgitation. There is mild to moderate mitral regurgitation. No hemodynamically significant valvular aortic stenosis. Mild aortic regurgitation. Mild to moderate aortic root dilatation Diastolic dysfunction, Grade II, consistent with elevated left atrial pressure. There is severe pulmonary hypertension. MD Max Caro 04/10/2018 02:04 PM
--- NOTE | 2018-04-10 14:55 | PN ---
Progress Note, [employer] - Note Progress Note: Swallowing Recommendations- Drink before starting meal to lubricate swallowing structures, Moist foods, extra condiments/gravy, small bites, chew well,follow with sips of liquid. Finish meal with liquid. Upright 1 hour after meals and no PO intake within 2 hours of bedtime, Avoid bending over/exercising after meals, Minimize Caffiene, carbonation, [place], Tomatoes, onions, spicy foods, high fat foods. Mediterranean diet/Alkaline water
--- NOTE | 2018-04-10 15:19 | PN ---
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 OBJECTIVE: Vital Signs Period Temp Pulse Resp BP Sys/Toure Pulse Ox Last 24 Hr 98 F-98.4 F 80-85 20-20 126-138/66-86 GENERAL: The patient is awake, alert, and fully oriented, in no acute distress. HEAD: Normal with no signs of trauma. EYES: PERRL, extraocular movements intact, sclera anicteric, conjunctiva clear. No ptosis. ENT: Ears normal, nares patent, oropharynx clear without exudates, moist mucous membranes. NECK: Trachea midline, full range of motion, supple. LUNGS: very mils bibasilar crackles HEART: Regular rate and rhythm, S1, S2 without murmur, rub or gallop. ABDOMEN: Soft, nontender, nondistended, normoactive bowel sounds, no guarding, no rebound, no hepatosplenomegaly, no masses. EXTREMITIES: 2+ pulses, warm, well-perfused, no edema. NEUROLOGICAL: Cranial nerves II through XII grossly intact. Normal speech, gait not observed. PSYCH: Normal mood, normal affect. SKIN: Warm, dry, normal turgor, no rashes or lesions noted Laboratory Results - last 24 hr 04/09/18 04/09/18 04/09/18 17:00 17:00 17:00 WBC 10.3 H RBC 2.94 L Hgb 10.2 L Hct 27.9 L MCV 94.8 MCH 34.6 H MCHC 36.5 H RDW 12.4 Plt Count 239 D MPV 8.3 Absolute Neuts (auto) Neutrophils % Neutrophils % (Manual) Band Neutrophils % Lymphocytes % Lymphocytes % (Manual) Monocytes % (Manual) Eosinophils % (Manual) Basophils % (Manual) Myelocytes % (Man) Promyelocytes % (Man) Blast Cells % (Manual) Nucleated RBC % Metamyelocytes Hypochromia Platelet Estimate Platelet Comment Polychromasia Poikilocytosis Anisocytosis Microcytosis Macrocytosis Retic Count 1.93 H Sodium Potassium Chloride Carbon Dioxide Anion Gap BUN Creatinine Creat Clearance w eGFR Random Glucose Calcium Total Bilirubin AST ALT Alkaline Phosphatase LD Total 202 Total Protein Albumin Serum Folate 20 H 04/10/18 04/10/18 05:30 05:30 WBC 7.7 RBC 2.70 L Hgb 9.1 L Hct 25.2 L MCV 93.4 MCH 33.6 MCHC 36.0 RDW 12.7 Plt Count No Result Required. MPV No Result Required. Absolute Neuts (auto) 6.7 Neutrophils % No Result Required. Neutrophils % (Manual) 83.7 H Band Neutrophils % 0.0 Lymphocytes % No Result Required. Lymphocytes % (Manual) 8.2 D Monocytes % (Manual) 4 D Eosinophils % (Manual) 0.0 Basophils % (Manual) 0.0 Myelocytes % (Man) 2 D Promyelocytes % (Man) 0 Blast Cells % (Manual) 0 Nucleated RBC % 1 H Metamyelocytes 1 D Hypochromia 1+ Platelet Estimate Normal Platelet Comment Slt plt clumping Polychromasia 0 Poikilocytosis 0 Anisocytosis 0 Microcytosis 0 Macrocytosis 0 Retic Count Sodium 140 Potassium 3.3 L Chloride 102 Carbon Dioxide 30 Anion Gap 8 BUN 21 H Creatinine 1.9 H Creat Clearance w eGFR 25.63 Random Glucose 142 H Calcium 8.1 L Total Bilirubin 0.7 AST 22 ALT 19 Alkaline Phosphatase 87 LD Total Total Protein 6.0 L Albumin 3.0 L Serum Folate Active Medications Generic Name Dose Route Start Last Admin Trade Name Freq PRN Reason Stop Dose Admin Acetaminophen 650 mg 04/10/18 08:31 Tylenol - PO Q4H PRN FEVER Albuterol Sulfate 1 amp 04/10/18 08:31 Ventolin 0.083% Nebulizer Soln - NEB Q6H PRN SHORT OF BREATH/WHEEZING Albuterol/Ipratropium 1 amp 04/10/18 12:00 04/10/18 11:56 Duoneb - NEB 1 amp RQID KEELY Administration Amlodipine Besylate 5 mg 04/10/18 10:00 04/10/18 10:20 Norvasc - PO 5 mg DAILY KEELY Administration Atenolol 50 mg 04/10/18 10:00 04/10/18 10:21 Tenormin - PO 50 mg DAILY KEELY Administration Atorvastatin Calcium 10 mg 04/10/18 22:00 Lipitor - PO HS KEELY Fluoxetine HCl 40 mg 04/10/18 10:00 04/10/18 10:20 Prozac - PO 40 mg DAILY KEELY Administration Heparin Sodium (Porcine) 5,000 unit 04/10/18 10:00 04/10/18 10:20 Heparin - SQ 5,000 unit BID KEELY Administration Ampicillin Sodium/Sulbactam 100 mls @ 200 mls/hr 04/10/18 10:00 04/10/18 10: 19 Sodium 3 gm/ Sodium Chloride IVPB 200 mls/hr Q8H-IV KEELY Administration Methylprednisolone Sodium Succinate 40 mg 04/10/18 10:00 04/10/18 10:26 Solu-Medrol - IVPUSH 40 mg Q8H-IV KEELY Administration Ondansetron HCl 8 mg 04/10/18 08:31 Zofran Injection IVPB Q8H PRN NAUSEA AND/OR VOMITING Pantoprazole Sodium 40 mg 04/09/18 22:00 04/10/18 10:26 Protonix - PO 40 mg BID KEELY Administration Potassium Chloride 10 meq 04/11/18 10:00 K-Dur - PO DAILY KEELY ASSESSMENT/PLAN: This is a 77 year old female with a history of lung Ca s/p lobectomy; anal Ca s/ p radiation and chemotherapy, schatzki ring presenting with dysphagia afte getting chicken in her throat. S/p emergent EGD removal. Now anemia with aspiration pneumonia. Anemia; acute blood loss ? schatski ring; s/p EGD removal of food AKF right hypdronephrosis acute hypoxic respiratory failure aspiration pna -acute blood loss anemia vs hemolysis vs ineffective erythropoesis due to infection -hematocrit of 38 on admission may be hemoconcentrated due to dehydration -haptoglobin, ldh, retic coubnt, folate, direct jose luis' pending -plan for repeat EGD although in light of hypoxia and aspiration pna; egd not emergent -will continue to follow blood counts; fobt; transfuse if heme <7 -gi, pulm, cardio, neph eval appreciated will follow Visit type - Emergency Visit Emergency Visit: Yes ED Registration Date: 04/07/18 Care time: The patient presented to the Emergency Department on the above date and was hospitalized for further evaluation of their emergent condition. - New Patient This patient is new to me today: No - Critical Care Critical Care patient: No
[2018-04-10] MEDS ORDERED: MAGNESIUM OXIDE 400 MG TABLET (FP) PO ONE (16:13)
--- NOTE | 2018-04-10 16:13 | PN ---
Progress Note, Physician History of Present Illness: Pt seen and examined at bedside. She is awake and alert. She feels that her breathing is improved today. She still requires oxygen. - Current Medication List Current Medications: Active Medications Acetaminophen (Tylenol -) 650 mg PO Q4H PRN PRN Reason: FEVER Albuterol Sulfate (Ventolin 0.083% Nebulizer Soln -) 1 amp NEB Q6H PRN PRN Reason: SHORT OF BREATH/WHEEZING Albuterol/Ipratropium (Duoneb -) 1 amp NEB RQID ON LICENSE OF [facility] Last Admin: 04/10/18 15:27 Dose: 1 amp Amlodipine Besylate (Norvasc -) 5 mg PO DAILY ON LICENSE OF [facility] Last Admin: 04/10/18 10:20 Dose: 5 mg Atenolol (Tenormin -) 50 mg PO DAILY ON [facility] OF [facility] Last Admin: 04/10/18 10:21 Dose: 50 mg Atorvastatin Calcium (Lipitor -) 10 mg PO HS ON LICENSE OF [facility] Fluoxetine HCl (Prozac -) 40 mg PO DAILY ON [facility] OF [facility] Last Admin: 04/10/18 10:20 Dose: 40 mg Heparin Sodium (Porcine) (Heparin -) 5,000 unit SQ BID ON [facility] OF [facility] Last Admin: 04/10/18 10:20 Dose: 5,000 unit Ampicillin Sodium/Sulbactam (Sodium 3 gm/ Sodium Chloride) 100 mls @ 200 mls/ hr IVPB Q8H-IV ON LICENSE OF [facility] Last Admin: 04/10/18 10:19 Dose: 200 mls/hr Methylprednisolone Sodium Succinate (Solu-Medrol -) 40 mg IVPUSH Q8H-IV ON LICENSE OF [facility] Last Admin: 04/10/18 10:26 Dose: 40 mg Ondansetron HCl (Zofran Injection) 8 mg IVPB Q8H PRN PRN Reason: NAUSEA AND/OR VOMITING Pantoprazole Sodium (Protonix -) 40 mg PO BID ON LICENSE OF [facility] Last Admin: 04/10/18 10:26 Dose: 40 mg Potassium Chloride (K-Dur -) 10 meq PO DAILY ON LICENSE OF [facility] - Objective Vital Signs: Vital Signs Temperature 98 F 04/10/18 13:55 Pulse Rate 82 04/10/18 13:55 Respiratory Rate 20 04/10/18 13:55 Blood Pressure 126/86 04/10/18 13:55 O2 Sat by Pulse Oximetry (%) 97 04/09/18 09:00 Constitutional: Yes: Calm Eyes: Yes: Conjunctiva Clear HENT: Yes: Atraumatic Neck: Yes: Supple Cardiovascular: Yes: S1, S2 Respiratory: Yes: CTA Bilaterally Gastrointestinal: Yes: Normal Bowel Sounds, Soft Genitourinary: Yes: WNL Musculoskeletal: Yes: WNL Edema: No Neurological: Yes: Oriented Psychiatric: Yes: Oriented Labs: CBC, BMP 04/10/18 05:30 04/10/18 05:30 INR, PTT INR 1.00 (0.83-1.09) 04/05/18 13:30 Problem List - Problems (1) Food impaction of esophagus Code(s): T18.128A - FOOD IN ESOPHAGUS CAUSING OTHER INJURY, INITIAL ENCOUNTER Qualifiers: Encounter type: initial encounter Qualified Code(s): T18.128A - Food in esophagus causing other injury, initial encounter (2) History of anal cancer Code(s): Z85.048 - PRSNL HX OF MALIG NEOPLM OF RECTUM, RECTOSIG JUNCT, AND ANUS (3) Renal insufficiency Code(s): N28.9 - DISORDER OF KIDNEY AND URETER, UNSPECIFIED (4) Schatzki's ring Code(s): K22.2 - ESOPHAGEAL OBSTRUCTION Assessment/Plan Current Medications Generic Name Dose Route Start Last Admin Trade Name Freq PRN Reason Stop Dose Admin Acetaminophen 650 mg 04/10/18 08:31 Tylenol - PO Q4H PRN FEVER Albuterol Sulfate 1 amp 04/10/18 08:31 Ventolin 0.083% Nebulizer Soln - NEB Q6H PRN SHORT OF BREATH/WHEEZING Albuterol/Ipratropium 1 amp 04/10/18 12:00 04/10/18 15:27 Duoneb - NEB 1 amp RQID KEELY Administration Amlodipine Besylate 5 mg 04/10/18 10:00 04/10/18 10:20 Norvasc - PO 5 mg DAILY KEELY Administration Atenolol 50 mg 04/10/18 10:00 04/10/18 10:21 Tenormin - PO 50 mg DAILY KEELY Administration Atorvastatin Calcium 10 mg 04/10/18 22:00 Lipitor - PO HS KEELY Fluoxetine HCl 40 mg 04/10/18 10:00 04/10/18 10:20 Prozac - PO 40 mg DAILY KEELY Administration Heparin Sodium (Porcine) 5,000 unit 04/10/18 10:00 04/10/18 10:20 Heparin - SQ 5,000 unit BID KEELY Administration Ampicillin Sodium/Sulbactam 100 mls @ 200 mls/hr 04/10/18 10:00 04/10/18 10: 19 Sodium 3 gm/ Sodium Chloride IVPB 200 mls/hr Q8H-IV KEELY Administration Methylprednisolone Sodium Succinate 40 mg 04/10/18 10:00 04/10/18 10:26 Solu-Medrol - IVPUSH 40 mg Q8H-IV KEELY Administration Ondansetron HCl 8 mg 04/10/18 08:31 Zofran Injection IVPB Q8H PRN NAUSEA AND/OR VOMITING Pantoprazole Sodium 40 mg 04/09/18 22:00 04/10/18 10:26 Protonix - PO 40 mg BID KEELY Administration Potassium Chloride 10 meq 04/11/18 10:00 K-Dur - PO DAILY KEELY Impression 1. [place] 2. CKD 3. lung cancer 4. hypokalemia 5. htn 6. hld 7. schatzki ring 8. hydronephrosis 9. UTI Plan - replace potassium - replace mag - follow mag level - pt to get another dose of lasix today - monitor pulse ox
--- NOTE | 2018-04-10 18:55 | PN ---
GI Progress Note Subjective: GI NOte: Had a brief swallowing mishap with OJ but has been swallowing without difficulties subsequent to that. Renal function appears to have returned to baseline. Urine output measurements are tainted by her urinary stress incontinence. Hb drop curtailed with fluctuation that is difficult to account for - Objective Vital Signs: Vital Signs Temperature 98 F 04/10/18 13:55 Pulse Rate 82 04/10/18 13:55 Respiratory Rate 20 04/10/18 13:55 Blood Pressure 126/86 04/10/18 13:55 O2 Sat by Pulse Oximetry (%) 97 04/09/18 09:00 Laboratory Tests 04/08/18 04/09/18 04/10/18 08:20 05:25 05:30 BUN 21 H 20 H 21 H Creatinine 1.7 H 1.8 H 1.9 H B-Natriuretic Peptide 66930.2 H Laboratory Tests 04/08/18 04/09/18 04/09/18 08:20 05:25 17:00 Hgb 8.9 L 8.8 L 10.2 L 04/10/18 05:30 Hgb 9.1 L Laboratory Tests 04/08/18 04/09/18 04/09/18 08:20 05:25 17:00 Retic Count 1.93 H Ferritin 231.9 Total Bilirubin 1.9 H 0.9 LD Total 04/09/18 17:00 Retic Count Ferritin Total Bilirubin LD Total 202 Constitutional: No Distress ...Auscultate: Yes: Normoactive Bowel Sounds ...Palpate: Yes: Soft, Other (nontender) Labs: CBC, BMP 04/10/18 05:30 04/10/18 05:30 INR, PTT INR 1.00 (0.83-1.09) 04/05/18 13:30 Assessment/Plan Impression: Esophageal meat impaction due to Schatzki ring Apsiration pneumonia Prerenal failure resolved Progressive anemia curtailed Plan; [place] EGD if GI bleeding becomes evident. Will refrain for now given the risks with pneumonia Continue antibiotics Harika will see Dr Benitez Kimbrough for Schatzki ring dilation and for surveillance colonoscopy after discharge Problem List - Problems (1) Hydronephrosis Code(s): N13.30 - UNSPECIFIED HYDRONEPHROSIS (2) Food impaction of esophagus Code(s): T18.128A - FOOD IN ESOPHAGUS CAUSING OTHER INJURY, INITIAL ENCOUNTER Qualifiers: Encounter type: initial encounter Qualified Code(s): T18.128A - Food in esophagus causing other injury, initial encounter (3) History of anal cancer Code(s): Z85.048 - PRSNL HX OF MALIG NEOPLM OF RECTUM, RECTOSIG JUNCT, AND ANUS (4) History of lung cancer Code(s): Z85.118 - PERSONAL HISTORY OF MALIGNANT NEOPLASM OF BRONCHUS AND LUNG (5) Renal insufficiency Code(s): N28.9 - DISORDER OF KIDNEY AND URETER, UNSPECIFIED (6) Schatzki's ring Code(s): K22.2 - ESOPHAGEAL OBSTRUCTION (7) Aspiration pneumonia Code(s): J69.0 - PNEUMONITIS DUE TO INHALATION OF FOOD AND VOMIT (8) Esophageal obstruction due to food impaction Code(s): K22.2 - ESOPHAGEAL OBSTRUCTION; T18.128A - FOOD IN ESOPHAGUS CAUSING OTHER INJURY, INITIAL ENCOUNTER
[2018-04-10] MEDS ORDERED: diphenhydrAMINE HCL 25 MG CAPSULE (FP) PO PRN (21:47)
[2018-04-10] MEDS ORDERED: MAGNESIUM SULF 50% (8.12 MEQ/2 ML-1 GM VIAL) IVPB ONE (21:47)
[2018-04-10] MEDS: ATORVASTATIN CA 10 MG TABLET (FP) PO SCH (22:33)
[2018-04-10] MEDS: INSULIN SLIDING SCALE (NOVOLOG) 1 VIAL SQ SCH (22:49)
[2018-04-11] MEDS: methylPREDNISolone NA SUCC 40 MG/1 ML VIAL IVPUSH SCH ×4 (02:04→21:37)
[2018-04-11] MEDS: AMPICILLIN NA/SULBACTAM NA 3 GM in SODIUM CHLORIDE 100 ML IVPB SCH ×3 (02:06→17:10)
[2018-04-11] MEDS: INSULIN SLIDING SCALE (NOVOLOG) 1 VIAL SQ SCH ×4 (06:25→21:38)
[2018-04-11 07:24] LABS: HEMATOCRIT 24.7 % (32.4-45.2); LYMPH % 8.3 % (8-40); MCH 33.7 pg (25.7-33.7); MCHC 36.4 g/dl (32.0-36.0); MEAN CELL VOLUME 92.5 fl (80-96); MEAN PLT VOLUME 7.6 fl (7.5-11.1); NEUT % 85.7 % (42.8-82.8); PLATELET COUNT 233 K/MM3 (134-434); RBC 2.68 M/mm3 (3.60-5.2); RDW 12.4 % (11.6-15.6); WHITE BLOOD COUNT 6.8 K/mm3 (4.0-10.0)
[2018-04-11] MEDS: ALBUTEROL SO4 2.5/IPRATROPIUM 0.5 INH SOL 3 ML VIAL.NEB. NEB SCH ×4 (07:29→20:32)
[2018-04-11 07:51] LABS: ALK PHOS 81 U/L (45-117); ANION GAP 8 MMOL/L (8-16); BILIRUBIN,TOTAL 0.6 mg/dL (0.2-1); BLOOD UREA NITROGEN 25 mg/dL (7-18); CHLORIDE 99 mmol/L (98-107); CO2 32 mmol/L (21-32); GLUCOSE,RANDOM 144 mg/dL (74-106); MAGNESIUM 1.5 mg/dL (1.8-2.4); POTASSIUM 3.4 mmol/L (3.5-5.1); SGOT/AST 26 U/L (15-37); SGPT/ALT 23 U/L (13-61); SODIUM 140 mmol/L (136-145); TOT PROT 5.9 g/dl (6.4-8.2)
[2018-04-11] MEDS ORDERED: MAGNESIUM SULF 50% (8.12 MEQ/2 ML-1 GM VIAL) IVPB ONE ×2 (08:00→09:06)
--- NOTE | 2018-04-11 09:05 | PN ---
Progress Note, Physician Chief Complaint: feeling better will taper steroids replete lytes echo d/w pt severe pulm HTN needs pulm and cardio f/u outpt chest CT d/w pt to repeat in 1-2 months - Current Medication List Current Medications: Active Medications Acetaminophen (Tylenol -) 650 mg PO Q4H PRN PRN Reason: FEVER Albuterol Sulfate (Ventolin 0.083% Nebulizer Soln -) 1 amp NEB Q6H PRN PRN Reason: SHORT OF BREATH/WHEEZING Albuterol/Ipratropium (Duoneb -) 1 amp NEB RQID [facility] Last Admin: 04/11/18 07:29 Dose: 1 amp Amlodipine Besylate (Norvasc -) 5 mg PO DAILY [facility] Last Admin: 04/10/18 10:20 Dose: 5 mg Atenolol (Tenormin -) 50 mg PO DAILY [facility] Last Admin: 04/10/18 10:21 Dose: 50 mg Atorvastatin Calcium (Lipitor -) 10 mg PO HS [facility] Last Admin: 04/10/18 22:33 Dose: 10 mg Diphenhydramine HCl (Benadryl -) 25 mg PO HS PRN PRN Reason: INSOMNIA Fluoxetine HCl (Prozac -) 40 mg PO DAILY [facility] Last Admin: 04/10/18 10:20 Dose: 40 mg Heparin Sodium (Porcine) (Heparin -) 5,000 unit SQ BID [facility] Last Admin: 04/10/18 22:34 Dose: 5,000 unit Ampicillin Sodium/Sulbactam (Sodium 3 gm/ Sodium Chloride) 100 mls @ 200 mls/ hr IVPB Q8H-IV [facility] Last Admin: 04/11/18 02:06 Dose: 200 mls/hr Insulin Aspart (Novolog Vial Sliding Scale -) 1 vial SQ ACHS [facility]; Protocol Last Admin: 04/11/18 06:25 Dose: Not Given Methylprednisolone Sodium Succinate (Solu-Medrol -) 40 mg IVPUSH Q8H-IV [facility] Last Admin: 04/11/18 02:04 Dose: 40 mg Ondansetron HCl (Zofran Injection) 8 mg IVPB Q8H PRN PRN Reason: NAUSEA AND/OR VOMITING Pantoprazole Sodium (Protonix -) 40 mg PO BID [facility] Last Admin: 04/10/18 22:33 Dose: 40 mg Potassium Chloride (K-Dur -) 20 meq PO DAILY KEELY - Objective Vital Signs: Vital Signs Temperature 97.8 F 04/11/18 05:42 Pulse Rate 76 04/11/18 05:42 Respiratory Rate 04/11/18 05:42 Blood Pressure 142/77 04/11/18 05:42 O2 Sat by Pulse Oximetry (%) 97 04/09/18 09:00 Constitutional: Yes: No Distress, Calm Eyes: Yes: Conjunctiva Clear HENT: Yes: Atraumatic Neck: Yes: Supple Cardiovascular: Yes: Regular Rate and Rhythm Respiratory: Yes: CTA Bilaterally Gastrointestinal: Yes: Soft. No: Tenderness Genitourinary: No: CVA Tenderness - Left, CVA Tenderness - Right Musculoskeletal: No: Joint Stiffness, Joint Swelling Extremities: No: Cold, Cool, Cyanosis Edema: No Integumentary: No: Rash, Venous Stasis Changes Neurological: Yes: WNL, Alert, Oriented ...Motor Strength: WNL Psychiatric: Yes: WNL, Alert, Oriented. No: Agitated, Suicidal Ideation Labs: CBC, BMP 04/11/18 06:17 04/11/18 05:30 INR, PTT INR 1.00 (0.83-1.09) 04/05/18 13:30 - ....Imaging Other: Report Reviewed Assessment/Plan The patient is a 76 year old female with a significant PMH of HTN, cataracts, schatzki ring, lung cancer, and anal cancer (followed by ONC dr Blanc in [facility] ) admitted via emergency department with food impaction, s/p EGD then developed fever cough and nausea plus SOB after EGD IV ATB per ID ID, cardiology and pulmonary, renal f/u replete lytes f/u labs echo d/w pt Chest CT and legs venous US noted d.w pt; advised repeat chest CT in 1 month speech eval anemia w/u heme onc f/u d/w pt and staff
[2018-04-11] MEDS ORDERED: POTASSIUM CHLORIDE TABS 10 MEQ TABLET.ER (FP) PO SCH (10:00)
[2018-04-11] MEDS: HEPARIN NA (PORCINE) 5,000 UNITS/ML 1ML VIAL SQ SCH ×2 (10:34→21:37)
[2018-04-11] MEDS: PANTOPRAZOLE 40 MG TABLET (FP) PO SCH ×2 (10:35→21:38)
[2018-04-11] MEDS: amLODIPine BESYLATE 5 MG TABLET (FP) PO SCH (10:35)
[2018-04-11] MEDS: ATENOLOL 50 MG TABLET (FP) PO SCH (10:35)
[2018-04-11] MEDS: FLUoxetine HCL 20 MG CAPSULE (FP) PO SCH (10:35)
[2018-04-11] MEDS: POTASSIUM CHLORIDE TABS 20 MEQ TABLET.ER (FP) PO SCH (10:35)
--- NOTE | 2018-04-11 10:42 | PN ---
Progress Note, Physician History of Present Illness: PULMONARY ALERT,FEELING BETTER,LESS DYSPNEIC,+ DRY COUGH - Current Medication List Current Medications: Active Medications Acetaminophen (Tylenol -) 650 mg PO Q4H PRN PRN Reason: FEVER Albuterol Sulfate (Ventolin 0.083% Nebulizer Soln -) 1 amp NEB Q6H PRN PRN Reason: SHORT OF BREATH/WHEEZING Albuterol/Ipratropium (Duoneb -) 1 amp NEB RQID [facility] Last Admin: 04/11/18 07:29 Dose: 1 amp Amlodipine Besylate (Norvasc -) 5 mg PO DAILY [facility] Last Admin: 04/11/18 10:35 Dose: 5 mg Atenolol (Tenormin -) 50 mg PO DAILY [facility] Last Admin: 04/11/18 10:35 Dose: 50 mg Atorvastatin Calcium (Lipitor -) 10 mg PO HS [facility] Last Admin: 04/10/18 22:33 Dose: 10 mg Diphenhydramine HCl (Benadryl -) 25 mg PO HS PRN PRN Reason: INSOMNIA Fluoxetine HCl (Prozac -) 40 mg PO DAILY [facility] Last Admin: 04/11/18 10:35 Dose: 40 mg Heparin Sodium (Porcine) (Heparin -) 5,000 unit SQ BID [facility] Last Admin: 04/11/18 10:34 Dose: 5,000 unit Ampicillin Sodium/Sulbactam (Sodium 3 gm/ Sodium Chloride) 100 mls @ 200 mls/ hr IVPB Q8H-IV [facility] Last Admin: 04/11/18 02:06 Dose: 200 mls/hr Insulin Aspart (Novolog Vial Sliding Scale -) 1 vial SQ ACHS [facility]; Protocol Last Admin: 04/11/18 06:25 Dose: Not Given Methylprednisolone Sodium Succinate (Solu-Medrol -) 40 mg IVPUSH Q12H [facility] Last Admin: 04/11/18 10:34 Dose: 40 mg Ondansetron HCl (Zofran Injection) 8 mg IVPB Q8H PRN PRN Reason: NAUSEA AND/OR VOMITING Pantoprazole Sodium (Protonix -) 40 mg PO BID [facility] Last Admin: 04/11/18 10:35 Dose: 40 mg Potassium Chloride (K-Dur -) 20 meq PO DAILY [facility] Last Admin: 04/11/18 10:35 Dose: 20 meq - Objective Vital Signs: Vital Signs Temperature 98 F 04/11/18 09:42 Pulse Rate 20 L 04/11/18 09:42 Respiratory Rate 20 04/11/18 09:42 Blood Pressure 134/76 04/11/18 09:42 O2 Sat by Pulse Oximetry (%) 97 04/09/18 09:00 Constitutional: Yes: Well Nourished, Calm Eyes: Yes: WNL HENT: Yes: WNL Neck: Yes: WNL Cardiovascular: Yes: Regular Rate and Rhythm, S1, S2 Respiratory: Yes: Rales (FEW BIBASILAR RALES) Gastrointestinal: Yes: Normal Bowel Sounds, Soft Extremities: Yes: WNL Edema: No Labs: CBC, BMP 04/11/18 06:17 04/11/18 05:30 INR, PTT INR 1.00 (0.83-1.09) 04/05/18 13:30 Problem List - Problems (1) Acute hypoxemic respiratory failure Code(s): J96.01 - ACUTE RESPIRATORY FAILURE WITH HYPOXIA (2) Acute kidney injury superimposed on CKD Code(s): N17.9 - ACUTE KIDNEY FAILURE, UNSPECIFIED; N18.9 - CHRONIC KIDNEY DISEASE, UNSPECIFIED (3) Aspiration pneumonia Code(s): J69.0 - PNEUMONITIS DUE TO INHALATION OF FOOD AND VOMIT (4) Food impaction of esophagus Code(s): T18.128A - FOOD IN ESOPHAGUS CAUSING OTHER INJURY, INITIAL ENCOUNTER Qualifiers: Encounter type: initial encounter Qualified Code(s): T18.128A - Food in esophagus causing other injury, initial encounter (5) Esophageal obstruction due to food impaction Code(s): K22.2 - ESOPHAGEAL OBSTRUCTION; T18.128A - FOOD IN ESOPHAGUS CAUSING OTHER INJURY, INITIAL ENCOUNTER (6) History of anal cancer Code(s): Z85.048 - PRSNL HX OF MALIG NEOPLM OF RECTUM, RECTOSIG JUNCT, AND ANUS (7) History of lung cancer Code(s): Z85.118 - PERSONAL HISTORY OF MALIGNANT NEOPLASM OF BRONCHUS AND LUNG (8) Hypertension Code(s): I10 - ESSENTIAL (PRIMARY) HYPERTENSION Assessment/Plan Assessment/Plan Acute Hypoxic Respiratory Failure improving Esophageal Impaction s/p EGD Pneumonia ? aspiration UTI Sepsis Acute on Chronic Renal Failure h/o Lung Ca s/p MELI lobectomy h/o Anal Ca HTN - Continue antibiotics - O2 to keep Spo2 >90% - inhaled bronchodilators - DVT prophylaxis DR VEGA
--- NOTE | 2018-04-11 11:03 | PN ---
Progress Note (short form) - Note Progress Note: s: less sob, no chest pain, palps, dizziness Current Medications Acetaminophen (Tylenol -) 650 mg PO Q4H PRN PRN Reason: FEVER Albuterol Sulfate (Ventolin 0.083% Nebulizer Soln -) 1 amp NEB Q6H PRN PRN Reason: SHORT OF BREATH/WHEEZING Albuterol/Ipratropium (Duoneb -) 1 amp NEB RQID ON LICENSE OF [facility] Last Admin: 04/11/18 07:29 Dose: 1 amp Amlodipine Besylate (Norvasc -) 5 mg PO DAILY ON LICENSE OF [facility] Last Admin: 04/11/18 10:35 Dose: 5 mg Atenolol (Tenormin -) 50 mg PO DAILY ON LICENSE OF [facility] Last Admin: 04/11/18 10:35 Dose: 50 mg Atorvastatin Calcium (Lipitor -) 10 mg PO HS ON LICENSE OF [facility] Last Admin: 04/10/18 22:33 Dose: 10 mg Diphenhydramine HCl (Benadryl -) 25 mg PO HS PRN PRN Reason: INSOMNIA Fluoxetine HCl (Prozac -) 40 mg PO DAILY ON LICENSE OF [facility] Last Admin: 04/11/18 10:35 Dose: 40 mg Heparin Sodium (Porcine) (Heparin -) 5,000 unit SQ BID ON LICENSE OF [facility] Last Admin: 04/11/18 10:34 Dose: 5,000 unit Ampicillin Sodium/Sulbactam (Sodium 3 gm/ Sodium Chloride) 100 mls @ 200 mls/ hr IVPB Q8H-IV ON LICENSE OF [facility] Last Admin: 04/11/18 02:06 Dose: 200 mls/hr Insulin Aspart (Novolog Vial Sliding Scale -) 1 vial SQ ACHS ON LICENSE OF [facility]; Protocol Last Admin: 04/11/18 06:25 Dose: Not Given Methylprednisolone Sodium Succinate (Solu-Medrol -) 40 mg IVPUSH Q12H ON LICENSE OF [facility] Last Admin: 04/11/18 10:34 Dose: 40 mg Ondansetron HCl (Zofran Injection) 8 mg IVPB Q8H PRN PRN Reason: NAUSEA AND/OR VOMITING Pantoprazole Sodium (Protonix -) 40 mg PO BID ON LICENSE OF [facility] Last Admin: 04/11/18 10:35 Dose: 40 mg Potassium Chloride (K-Dur -) 20 meq PO DAILY ON LICENSE OF [facility] Last Admin: 04/11/18 10:35 Dose: 20 meq Vital Signs Period Temp Pulse Resp BP Sys/Toure Pulse Ox Last 24 Hr 97.8 F-98.2 F 20-82 16-20 122-142/53-86 Constitutional: Yes: Well Nourished, No Distress Eyes: No: Sclera Icterus HENT: No: Nasal Congestion Neck: No: Decreased ROM Respiratory: Yes: CTA Bilaterally, Diminished (MELI). No: Accessory Muscle Use, Rales, Wheezes Gastrointestinal: Yes: Normal Bowel Sounds. No: Distention, Hepatomegaly, Palpable Mass, Tenderness Cardiovascular: Yes: Regular Rate and Rhythm JVD: Yes Carotid Bruit: No PMI: Non-Displaced Heart Sounds: Yes: S1, S2. No: Gallop Murmur: No: Systolic Murmur, Diastolic Murmur Musculoskeletal: Yes: Other (No kyphosis) Extremities: No: Cold, Cyanosis Edema: No Peripheral Pulses: 2+ Left Carotid, 2+ Right Carotid, 2+ Left Doralis Pedis, 2+ Right Dorsalis Pedis Integumentary: No: Jaundice Neurological: Yes: Alert, Oriented (x3) Psychiatric: No: Agitated Assessment/Plan ECG 04/08: NSR, mildly prolonged QT (unchanged vs prior), nonsp ST-Ts anterior leads--these are accentuated vs prior 12/2016 (but were present then) CXR 04/08: progressive L infiltrate. diffuse interstitial markings, no vascular redistribution CT chest: L lower chest infiltrate, mild RLL ground glass opacity, sm R and tr L pleural effusions, enlarged lymph nodes, dilation main PA, ascending aorta borderline dilated 4 cm, echo 03/2018 tds, nl LV/RV fn, LA mod dilated, mod TR, mild to mod MR, mild AR, grade II diastolic dysfunction, severe pulm HTN tele: sinus, PVCs fever, sob, cough, wheezes, hypoxia, acute on chronic diastolic CHF: -? aspiration pneumonitis vs CAP. CXR 04/08 with L infiltrate, fever to >101 on -followup CT, abx and supportive care per pulm -suspect subacute CHF for few weeks, acutely worse here after IVF received: BNP 13K (no priors). +JVD -doubt PE in setting of sx's ongoing several weeks, and + abnormal CXR with clinical findings of infection and CHF. deferring CTA chest given GFR <30. -echo nl LV/RV function with severe pulmonary HTN with grade II diastolic dysfunction -ECG with nonspecific ST-T changes vs prior. trop neg x2 -given lasix 20 iv 04/08--noted good diuretic effect, received lasix 40 mg IV - -sob improving, Cr rising - will hold lasix today WESTON on CKD: -creat initially up, now back to baseline range (1.5-1.9) -monitor closely with diuresis HTN: -bp controlled -same plan
--- NOTE | 2018-04-11 12:10 | PN ---
Progress Note, MEAT SOAKER - Note Progress Note: Swallowing Recommendations- Drink before starting meal to lubricate swallowing structures, Moist foods, extra condiments/gravy, small bites, chew well,follow with sips of liquid. Finish meal with liquid. Upright 1 hour after meals and no PO intake within 2 hours of bedtime, Avoid bending over/exercising after meals, Minimize Caffiene, carbonation, Tullos, Tomatoes, onions, spicy foods, high fat foods. Mediterranean diet/Alkaline water Excellent compliance with compensatory swallowing recommendations. MBS in future , after esophageal dilatation, unless swallowing /congestion worsens.
--- NOTE | 2018-04-11 12:41 | PN ---
Progress Note, Physician History of Present Illness: Pt seen and examined at bedside. She is awake and alert. She feels that her breathing is improved. - Current Medication List Current Medications: Active Medications Acetaminophen (Tylenol -) 650 mg PO Q4H PRN PRN Reason: FEVER Albuterol Sulfate (Ventolin 0.083% Nebulizer Soln -) 1 amp NEB Q6H PRN PRN Reason: SHORT OF BREATH/WHEEZING Albuterol/Ipratropium (Duoneb -) 1 amp NEB RQID [facility] Last Admin: 04/11/18 11:05 Dose: 1 amp Amlodipine Besylate (Norvasc -) 5 mg PO DAILY [facility] Last Admin: 04/11/18 10:35 Dose: 5 mg Atenolol (Tenormin -) 50 mg PO DAILY [facility] Last Admin: 04/11/18 10:35 Dose: 50 mg Atorvastatin Calcium (Lipitor -) 10 mg PO HS [facility] Last Admin: 04/10/18 22:33 Dose: 10 mg Diphenhydramine HCl (Benadryl -) 25 mg PO HS PRN PRN Reason: INSOMNIA Fluoxetine HCl (Prozac -) 40 mg PO DAILY [facility] Last Admin: 04/11/18 10:35 Dose: 40 mg Heparin Sodium (Porcine) (Heparin -) 5,000 unit SQ BID [facility] Last Admin: 04/11/18 10:34 Dose: 5,000 unit Ampicillin Sodium/Sulbactam (Sodium 3 gm/ Sodium Chloride) 100 mls @ 200 mls/ hr IVPB Q8H-IV [facility] Last Admin: 04/11/18 02:06 Dose: 200 mls/hr Insulin Aspart (Novolog Vial Sliding Scale -) 1 vial SQ ACHS [facility]; Protocol Last Admin: 04/11/18 06:25 Dose: Not Given Methylprednisolone Sodium Succinate (Solu-Medrol -) 40 mg IVPUSH Q12H [facility] Last Admin: 04/11/18 10:34 Dose: 40 mg Ondansetron HCl (Zofran Injection) 8 mg IVPB Q8H PRN PRN Reason: NAUSEA AND/OR VOMITING Pantoprazole Sodium (Protonix -) 40 mg PO BID [facility] Last Admin: 04/11/18 10:35 Dose: 40 mg Potassium Chloride (K-Dur -) 20 meq PO DAILY [facility] Last Admin: 04/11/18 10:35 Dose: 20 meq - Objective Vital Signs: Vital Signs Temperature 98 F 04/11/18 09:42 Pulse Rate 20 L 04/11/18 09:42 Respiratory Rate 20 04/11/18 09:42 Blood Pressure 134/76 04/11/18 09:42 O2 Sat by Pulse Oximetry (%) 97 04/09/18 09:00 Constitutional: Yes: Calm Eyes: Yes: Conjunctiva Clear HENT: Yes: Atraumatic Neck: Yes: Supple Cardiovascular: Yes: S1, S2 Respiratory: Yes: CTA Bilaterally Gastrointestinal: Yes: Normal Bowel Sounds, Soft Genitourinary: Yes: WNL Musculoskeletal: Yes: WNL Edema: No Neurological: Yes: Oriented Psychiatric: Yes: Oriented Labs: CBC, BMP 04/11/18 06:17 04/11/18 05:30 INR, PTT INR 1.00 (0.83-1.09) 04/05/18 13:30 Problem List - Problems (1) Food impaction of esophagus Code(s): T18.128A - FOOD IN ESOPHAGUS CAUSING OTHER INJURY, INITIAL ENCOUNTER Qualifiers: Encounter type: initial encounter Qualified Code(s): T18.128A - Food in esophagus causing other injury, initial encounter (2) History of anal cancer Code(s): Z85.048 - PRSNL HX OF MALIG NEOPLM OF RECTUM, RECTOSIG JUNCT, AND ANUS (3) Renal insufficiency Code(s): N28.9 - DISORDER OF KIDNEY AND URETER, UNSPECIFIED (4) Schatzki's ring Code(s): K22.2 - ESOPHAGEAL OBSTRUCTION Assessment/Plan Current Medications Generic Name Dose Route Start Last Admin Trade Name Freq PRN Reason Stop Dose Admin Acetaminophen 650 mg 04/10/18 08:31 Tylenol - PO Q4H PRN FEVER Albuterol Sulfate 1 amp 04/10/18 08:31 Ventolin 0.083% Nebulizer Soln - NEB Q6H PRN SHORT OF BREATH/WHEEZING Albuterol/Ipratropium 1 amp 04/10/18 12:00 04/11/18 11:05 Duoneb - NEB 1 amp RQID [facility] Administration Amlodipine Besylate 5 mg 04/10/18 10:00 04/11/18 10:35 Norvasc - PO 5 mg DAILY [facility] Administration Atenolol 50 mg 04/10/18 10:00 04/11/18 10:35 Tenormin - PO 50 mg DAILY [facility] Administration Atorvastatin Calcium 10 mg 04/10/18 22:00 04/10/18 22:33 Lipitor - PO 10 mg HS [facility] Administration Diphenhydramine HCl 25 mg 04/10/18 21:47 Benadryl - PO HS PRN INSOMNIA Fluoxetine HCl 40 mg 04/10/18 10:00 04/11/18 10:35 Prozac - PO 40 mg DAILY [facility] Administration Heparin Sodium (Porcine) 5,000 unit 04/10/18 10:00 04/11/18 10:34 Heparin - SQ 5,000 unit BID [facility] Administration Ampicillin Sodium/Sulbactam 100 mls @ 200 mls/hr 04/10/18 10:00 04/11/18 02: 06 Sodium 3 gm/ Sodium Chloride IVPB 200 mls/hr Q8H-IV [facility] Administration Insulin Aspart 1 vial 04/10/18 22:00 04/11/18 06:25 Novolog Vial Sliding Scale - SQ Not Given ACHS [facility] Protocol Methylprednisolone Sodium Succinate 40 mg 04/11/18 10:30 04/11/18 10:34 Solu-Medrol - IVPUSH 40 mg Q12H [facility] Administration Ondansetron HCl 8 mg 04/10/18 08:31 Zofran Injection IVPB Q8H PRN NAUSEA AND/OR VOMITING Pantoprazole Sodium 40 mg 04/09/18 22:00 04/11/18 10:35 Protonix - PO 40 mg BID [facility] Administration Potassium Chloride 20 meq 04/11/18 10:00 04/11/18 10:35 K-Dur - PO 20 meq DAILY [facility] Administration Impression 1. WESTON 2. CKD 3. lung cancer 4. hypokalemia 5. htn 6. hld 7. schatzki ring 8. hydronephrosis 9. UTI Plan - cont to monitor renal function - repeat labs in am - replace mag - replace potassium - hold off lasix - discussed with cardio - monitor pulse ox
[2018-04-11 14:03] LABS: ANISOCYTOSIS 0; HELMET CELLS 0; HOWELL-JOLLY BODIES 0; MACROCYTOSIS 0; OVALOCYTE 0; PLATELET ESTIMATE NORMAL; ROULEAU 0; SICKELED CELLS 0; TARGET CELLS 0; TEAR DROP CELLS 0; TOXIC GRANULATION 0
--- NOTE | 2018-04-11 15:24 | PN ---
Progress Note (short form) - Note Progress Note: transferred to telemetry more comfortable today vomiting and nausea have resolved feels improved oob and ambulating Vital Signs Period Temp Pulse Resp BP Sys/Toure Pulse Ox Last 24 Hr 97.8 F-98.2 F 20-78 16-20 122-142/53-77 cor-rrr lungs decreased bs at bases abd soft,nt ext no edema CBC, BMP 04/11/18 06:17 04/11/18 05:30 Microbiology 04/07/18 17:30 Blood - Peripheral Venous Blood Culture - Preliminary NO GROWTH OBTAINED AFTER 72 HOURS, INCUBATION TO CONTINUE FOR 2 DAYS. 04/07/18 17:30 Blood - Peripheral Venous Blood Culture - Preliminary NO GROWTH OBTAINED AFTER 72 HOURS, INCUBATION TO CONTINUE FOR 2 DAYS. 04/07/18 17:00 Urine - Urine Clean Catch Urine Culture - Final NO GROWTH OBTAINED 04/08/18 17:30 Urine For Antigen Detection Legionella Antigen - Final 04/08/18 17:30 Urine For Antigen Detection Streptococcus pneumoniae Antigen (M - Final 04/06/18 13:30 Urine - Urine Clean Catch Urine Culture - Final Contaminated: Please Repeat chest ct with lll infiltrate rll groundglass +enlarged lymph nodes imp/reccd 77 yo female admitted with food impaction (chicken), s/p endoscopy-04/06 +vomiting +hypoxia pneumonia LLL continue unasyn day #3 f/u chest ct dopplers negative for DVT heme to see for anemia Problem List - Problems (1) Aspiration pneumonia Code(s): J69.0 - PNEUMONITIS DUE TO INHALATION OF FOOD AND VOMIT (2) Esophageal obstruction due to food impaction Code(s): K22.2 - ESOPHAGEAL OBSTRUCTION; T18.128A - FOOD IN ESOPHAGUS CAUSING OTHER INJURY, INITIAL ENCOUNTER (3) Acute kidney injury superimposed on CKD Code(s): N17.9 - ACUTE KIDNEY FAILURE, UNSPECIFIED; N18.9 - CHRONIC KIDNEY DISEASE, UNSPECIFIED
--- NOTE | 2018-04-11 18:04 | PN ---
Physical Exam: SUBJECTIVE: Patient seen and examined; h/h stable; OBJECTIVE: Vital Signs Period Temp Pulse Resp BP Sys/Toure Pulse Ox Last 24 Hr 97.8 F-99.0 F 20-78 18-20 134-142/69-77 GENERAL: The patient is awake, alert, and fully oriented, in no acute distress. NECK: Trachea midline, full range of motion, supple. LUNGS: Breath sounds equal, clear to auscultation bilaterally, no wheezes, no crackles, no accessory muscle use. HEART: Regular rate and rhythm, S1, S2 without murmur, rub or gallop. ABDOMEN: Soft, nontender, nondistended, normoactive bowel sounds, no guarding, no rebound, no hepatosplenomegaly, no masses. EXTREMITIES: 2+ pulses, warm, well-perfused, no edema. NEUROLOGICAL: Cranial nerves II through XII grossly intact. Normal speech, gait not observed. PSYCH: Normal mood, normal affect. SKIN: Warm, dry, normal turgor, no rashes or lesions noted Laboratory Results - last 24 hr 04/09/18 04/10/18 04/10/18 17:00 17:30 22:48 WBC RBC Hgb Hct MCV MCH MCHC RDW Plt Count MPV Absolute Neuts (auto) Neutrophils % Neutrophils % (Manual) Band Neutrophils % Lymphocytes % Lymphocytes % (Manual) Monocytes % Monocytes % (Manual) Eosinophils % Eosinophils % (Manual) Basophils % Basophils % (Manual) Myelocytes % (Man) Promyelocytes % (Man) Blast Cells % (Manual) Nucleated RBC % Metamyelocytes Hypochromia Toxic Granulation Dohle Bodies Platelet Estimate Polychromasia Poikilocytosis Basophilic Stippling Anisocytosis Microcytosis Macrocytosis Spherocytes Sickle Cells Target Cells Tear Drop Cells Ovalocytes Stomatocytes Helmet Cells [place] Bodies [place] Rings Jake Cells Acanthocytes (Spur) Rouleaux Fragmented RBCs Schistocytes Haptoglobin 354 H Sodium Potassium Chloride Carbon Dioxide Anion Gap BUN Creatinine Creat Clearance w eGFR POC Glucometer 170 Random Glucose Calcium Magnesium 0.9 L Total Bilirubin AST ALT Alkaline Phosphatase Total Protein Albumin 04/11/18 04/11/18 04/11/18 05:23 05:30 06:17 WBC 6.8 RBC 2.68 L Hgb 9.0 L Hct 24.7 L MCV 92.5 MCH 33.7 MCHC 36.4 H RDW 12.4 Plt Count 233 MPV 7.6 Absolute Neuts (auto) 5.8 Neutrophils % 85.7 H Neutrophils % (Manual) 80.6 Band Neutrophils % 0.0 Lymphocytes % 8.3 D Lymphocytes % (Manual) 10.2 D Monocytes % 6.0 D Monocytes % (Manual) 7 Eosinophils % 0.0 Eosinophils % (Manual) 0.0 Basophils % 0.0 Basophils % (Manual) 0.0 Myelocytes % (Man) 1 D Promyelocytes % (Man) 0 Blast Cells % (Manual) 0 Nucleated RBC % 0 Metamyelocytes 0 D Hypochromia 0 Toxic Granulation 0 Dohle Bodies 0 Platelet Estimate Normal Polychromasia 0 Poikilocytosis 0 Basophilic Stippling 0 Anisocytosis 0 Microcytosis 0 Macrocytosis 0 Spherocytes 0 Sickle Cells 0 Target Cells 0 Tear Drop Cells 0 Ovalocytes 0 Stomatocytes 0 Helmet Cells 0 [place] Bodies 0 [place] Rings 0 [place] Cells 0 Acanthocytes (Spur) 0 Rouleaux 0 Fragmented RBCs 0 Schistocytes 0 Haptoglobin Sodium 140 Potassium 3.4 L Chloride 99 Carbon Dioxide 32 Anion Gap 8 BUN 25 H Creatinine 2.0 H Creat Clearance w eGFR 24.16 POC Glucometer 155 Random Glucose 144 H Calcium 8.0 L Magnesium 1.5 L Total Bilirubin 0.6 AST 26 ALT 23 Alkaline Phosphatase 81 Total Protein 5.9 L Albumin 3.0 L 04/11/18 04/11/18 11:46 17:18 WBC RBC Hgb Hct MCV MCH MCHC RDW Plt Count MPV Absolute Neuts (auto) Neutrophils % Neutrophils % (Manual) Band Neutrophils % Lymphocytes % Lymphocytes % (Manual) Monocytes % Monocytes % (Manual) Eosinophils % Eosinophils % (Manual) Basophils % Basophils % (Manual) Myelocytes % (Man) Promyelocytes % (Man) Blast Cells % (Manual) Nucleated RBC % Metamyelocytes Hypochromia Toxic Granulation Dohle Bodies Platelet Estimate Polychromasia Poikilocytosis Basophilic Stippling Anisocytosis Microcytosis Macrocytosis Spherocytes Sickle Cells Target Cells Tear Drop Cells Ovalocytes Stomatocytes Helmet Cells [place] Bodies [place] Rings Jake Cells Acanthocytes (Spur) Rouleaux Fragmented RBCs Schistocytes Haptoglobin Sodium Potassium Chloride Carbon Dioxide Anion Gap BUN Creatinine Creat Clearance w eGFR POC Glucometer 139 149 Random Glucose Calcium Magnesium Total Bilirubin AST ALT Alkaline Phosphatase Total Protein Albumin Active Medications Generic Name Dose Route Start Last Admin Trade Name Freq PRN Reason Stop Dose Admin Acetaminophen 650 mg 04/10/18 08:31 Tylenol - PO Q4H PRN FEVER Albuterol Sulfate 1 amp 04/10/18 08:31 Ventolin 0.083% Nebulizer Soln - NEB Q6H PRN SHORT OF BREATH/WHEEZING Albuterol/Ipratropium 1 amp 04/10/18 12:00 04/11/18 15:50 Duoneb - NEB 1 amp RQID [facility] Administration Amlodipine Besylate 5 mg 04/10/18 10:00 04/11/18 10:35 Norvasc - PO 5 mg DAILY [facility] Administration Atenolol 50 mg 04/10/18 10:00 04/11/18 10:35 Tenormin - PO 50 mg DAILY [facility] Administration Atorvastatin Calcium 10 mg 04/10/18 22:00 04/10/18 22:33 Lipitor - PO 10 mg HS [facility] Administration Diphenhydramine HCl 25 mg 04/10/18 21:47 Benadryl - PO HS PRN INSOMNIA Fluoxetine HCl 40 mg 04/10/18 10:00 04/11/18 10:35 Prozac - PO 40 mg DAILY [facility] Administration Heparin Sodium (Porcine) 5,000 unit 04/10/18 10:00 04/11/18 10:34 Heparin - SQ 5,000 unit BID [facility] Administration Ampicillin Sodium/Sulbactam 100 mls @ 200 mls/hr 04/10/18 10:00 04/11/18 17: 10 Sodium 3 gm/ Sodium Chloride IVPB 200 mls/hr Q8H-IV [facility] Administration Insulin Aspart 1 vial 04/10/18 22:00 04/11/18 17:20 Novolog Vial Sliding Scale - SQ Not Given ACHS [facility] Protocol Methylprednisolone Sodium Succinate 40 mg 04/11/18 10:30 04/11/18 10:34 Solu-Medrol - IVPUSH 40 mg Q12H [facility] Administration Ondansetron HCl 8 mg 04/10/18 08:31 Zofran Injection IVPB Q8H PRN NAUSEA AND/OR VOMITING Pantoprazole Sodium 40 mg 04/09/18 22:00 04/11/18 10:35 Protonix - PO 40 mg BID [facility] Administration Potassium Chloride 20 meq 04/11/18 10:00 04/11/18 10:35 K-Dur - PO 20 meq DAILY [facility] Administration ASSESSMENT/PLAN: This is a 77 year old female with a history of lung Ca s/p lobectomy; anal Ca s/ p radiation and chemotherapy, schatzki ring presenting with dysphagia afte getting chicken in her throat. S/p emergent EGD removal. Now anemia with aspiration pneumonia. Anemia; schatski ring; s/p EGD removal of food AKF right hypdronephrosis acute hypoxic respiratory failure aspiration pna -stable h/h -acute blood loss anemia vs ineffective erythropoesis due to infection -no hemolysis; haptoglobin was high -hematocrit of 38 on admission may be hemoconcentrated due to dehydration -haptoglobin, ldh, retic coubnt, folate, direct jose luis' pending -plan for repeat EGD when appropriate -will continue to follow blood counts; fobt; transfuse if heme <7 -gi, pulm, cardio, neph eval appreciated Visit type - Emergency Visit Emergency Visit: Yes ED Registration Date: 04/07/18 Care time: The patient presented to the Emergency Department on the above date and was hospitalized for further evaluation of their emergent condition. - New Patient This patient is new to me today: No - Critical Care Critical Care patient: No
--- NOTE | 2018-04-11 19:58 | PN ---
Progress Note (short form) - Note Progress Note: Patient seen and examined No chest pain , SOB, fevers, Last Vital Signs Temp Pulse Resp BP Pulse Ox 98.2 F 78 16 134/64 97 04/11/18 17:00 04/11/18 17:00 04/11/18 17:00 04/11/18 17:00 04/09/18 09:00 Cor: irregular Lungs:few rals left base Abd: Soft, Normal bowel sounds, No organomegaly Ext:No significant edema Skin: No rashes, Integument intact CBC, BMP 04/11/18 06:17 04/11/18 05:30 Current Medications Generic Name Dose Route Start Last Admin Trade Name Freq PRN Reason Stop Dose Admin Acetaminophen 650 mg 04/10/18 08:31 Tylenol - PO Q4H PRN FEVER Albuterol Sulfate 1 amp 04/10/18 08:31 Ventolin 0.083% Nebulizer Soln - NEB Q6H PRN SHORT OF BREATH/WHEEZING Albuterol/Ipratropium 1 amp 04/10/18 12:00 04/11/18 15:50 Duoneb - NEB 1 amp RQID KEELY Administration Amlodipine Besylate 5 mg 04/10/18 10:00 04/11/18 10:35 Norvasc - PO 5 mg DAILY [facility] Administration Atenolol 50 mg 04/10/18 10:00 04/11/18 10:35 Tenormin - PO 50 mg DAILY [facility] Administration Atorvastatin Calcium 10 mg 04/10/18 22:00 04/10/18 22:33 Lipitor - PO 10 mg HS [facility] Administration Diphenhydramine HCl 25 mg 04/10/18 21:47 Benadryl - PO HS PRN INSOMNIA Fluoxetine HCl 40 mg 04/10/18 10:00 04/11/18 10:35 Prozac - PO 40 mg DAILY [facility] Administration Heparin Sodium (Porcine) 5,000 unit 04/10/18 10:00 04/11/18 10:34 Heparin - SQ 5,000 unit BID [facility] Administration Ampicillin Sodium/Sulbactam 100 mls @ 200 mls/hr 04/10/18 10:00 04/11/18 17: 10 Sodium 3 gm/ Sodium Chloride IVPB 200 mls/hr Q8H-IV [facility] Administration Insulin Aspart 1 vial 04/10/18 22:00 04/11/18 17:20 Novolog Vial Sliding Scale - SQ Not Given ACHS [facility] Protocol Methylprednisolone Sodium Succinate 40 mg 04/11/18 10:30 04/11/18 10:34 Solu-Medrol - IVPUSH 40 mg Q12H [facility] Administration Ondansetron HCl 8 mg 04/10/18 08:31 Zofran Injection IVPB Q8H PRN NAUSEA AND/OR VOMITING Pantoprazole Sodium 40 mg 04/09/18 22:00 04/11/18 10:35 Protonix - PO 40 mg BID KE[facility] Administration Potassium Chloride 20 meq 04/11/18 10:00 04/11/18 10:35 K-Dur - PO 20 meq DAILY [facility] Administration Impression: Hb relatively stable Abnormal CT LLL pneumonia Have spoken with patient to take disc of CT down to [facility] oncologist for follow up To have GI follow up in [facility] as well .
[2018-04-11] MEDS: ATORVASTATIN CA 10 MG TABLET (FP) PO SCH (21:38)
[2018-04-12] MEDS: AMPICILLIN NA/SULBACTAM NA 3 GM in SODIUM CHLORIDE 100 ML IVPB SCH ×3 (03:00→17:36)
--- NOTE | 2018-04-12 06:22 | PN ---
Progress Note, Physician Chief Complaint: less SOB feeling better check O2 pre and post might need home O2 taper steroids anticipate DC home in am - Current Medication List Current Medications: Active Medications Acetaminophen (Tylenol -) 650 mg PO Q4H PRN PRN Reason: FEVER Albuterol Sulfate (Ventolin 0.083% Nebulizer Soln -) 1 amp NEB Q6H PRN PRN Reason: SHORT OF BREATH/WHEEZING Albuterol/Ipratropium (Duoneb -) 1 amp NEB RQID [facility] [place] Last Admin: 04/11/18 20:32 Dose: 1 amp Amlodipine Besylate (Norvasc -) 5 mg PO DAILY [facility] [place] Last Admin: 04/11/18 10:35 Dose: 5 mg Atenolol (Tenormin -) 50 mg PO DAILY [facility] [place] Last Admin: 04/11/18 10:35 Dose: 50 mg Atorvastatin Calcium (Lipitor -) 10 mg PO HS [facility] [place] Last Admin: 04/11/18 21:38 Dose: 10 mg Diphenhydramine HCl (Benadryl -) 25 mg PO HS PRN PRN Reason: INSOMNIA Fluoxetine HCl (Prozac -) 40 mg PO DAILY [facility] [place] Last Admin: 04/11/18 10:35 Dose: 40 mg Heparin Sodium (Porcine) (Heparin -) 5,000 unit SQ BID [facility] [place] Last Admin: 04/11/18 21:37 Dose: 5,000 unit Ampicillin Sodium/Sulbactam (Sodium 3 gm/ Sodium Chloride) 100 mls @ 200 mls/ hr IVPB Q8H-IV [facility] [place] Last Admin: 04/12/18 03:00 Dose: 200 mls/hr Insulin Aspart (Novolog Vial Sliding Scale -) 1 vial SQ ACHS [facility] [place]; Protocol Last Admin: 04/11/18 21:38 Dose: 2 units Methylprednisolone Sodium Succinate (Solu-Medrol -) 40 mg IVPUSH Q12H [facility] [place] Last Admin: 04/11/18 21:37 Dose: 40 mg Ondansetron HCl (Zofran Injection) 8 mg IVPB Q8H PRN PRN Reason: NAUSEA AND/OR VOMITING Pantoprazole Sodium (Protonix -) 40 mg PO BID [facility] [place] Last Admin: 04/11/18 21:38 Dose: 40 mg Potassium Chloride (K-Dur -) 20 meq PO DAILY [facility] [place] Last Admin: 04/11/18 10:35 Dose: 20 meq - Objective Vital Signs: Vital Signs Temperature 98.0 F 04/12/18 01:30 Pulse Rate 67 04/12/18 01:30 Respiratory Rate 20 04/12/18 01:30 Blood Pressure 132/79 04/12/18 01:30 O2 Sat by Pulse Oximetry (%) 97 04/09/18 09:00 Constitutional: Yes: No Distress, Calm Eyes: Yes: Conjunctiva Clear HENT: Yes: Atraumatic Neck: Yes: Supple Cardiovascular: Yes: Regular Rate and Rhythm Respiratory: Yes: CTA Bilaterally Gastrointestinal: Yes: Soft. No: Tenderness Genitourinary: No: CVA Tenderness - Left, CVA Tenderness - Right Musculoskeletal: No: Joint Stiffness, Joint Swelling Extremities: No: Cold, Cool, Cyanosis Edema: No Integumentary: No: Rash, Venous Stasis Changes Neurological: Yes: WNL, Alert, Oriented ...Motor Strength: WNL Psychiatric: Yes: WNL, Alert, Oriented. No: Agitated, Suicidal Ideation Labs: CBC, BMP 04/11/18 06:17 04/11/18 05:30 INR, PTT INR 1.00 (0.83-1.09) 04/05/18 13:30 - ....Imaging Other: Report Reviewed Assessment/Plan The patient is a 76 year old female with a significant PMH of HTN, cataracts, schatzki ring, lung cancer, and anal cancer (followed by ONC dr Blanc in [facility] ) admitted via emergency department with food impaction, s/p EGD then developed fever cough aspiration PNA and hypoxia after EGD IV ATB per ID ID, cardiology and pulmonary, renal f/u replete lytes f/u labs echo d/w pt repeat chest CT in 1 month speech eval anemia w/u heme onc f/u d/w pt and staff d/w pt's PCP
[2018-04-12] MEDS: INSULIN SLIDING SCALE (NOVOLOG) 1 VIAL SQ SCH ×4 (06:39→22:28)
[2018-04-12 07:20] LABS: BASO % 0.1 % (0-2.0); HEMATOCRIT 26.3 % (32.4-45.2); HEMOGLOBIN 9.6 GM/dL (10.7-15.3); LYMPH % 10.6 % (8-40); MCH 33.8 pg (25.7-33.7); MCHC 36.4 g/dl (32.0-36.0); MEAN CELL VOLUME 92.9 fl (80-96); MEAN PLT VOLUME 7.4 fl (7.5-11.1); MONO % 6.8 % (3.8-10.2); NEUT % 82.5 % (42.8-82.8); PLATELET COUNT 259 K/MM3 (134-434); RBC 2.83 M/mm3 (3.60-5.2); WHITE BLOOD COUNT 8.2 K/mm3 (4.0-10.0)
[2018-04-12 07:45] LABS: ALBUMIN 2.9 g/dl (3.4-5.0); ALK PHOS 72 U/L (45-117); ANION GAP 7 MMOL/L (8-16); BILIRUBIN,TOTAL 0.8 mg/dL (0.2-1); BLOOD UREA NITROGEN 27 mg/dL (7-18); CALCIUM 7.8 mg/dL (8.5-10.1); CHLORIDE 99 mmol/L (98-107); CO2 32 mmol/L (21-32); CREATININE 1.8 mg/dL (0.55-1.3); GLUCOSE,RANDOM 132 mg/dL (74-106); POTASSIUM 3.5 mmol/L (3.5-5.1); SGOT/AST 25 U/L (15-37); SGPT/ALT 25 U/L (13-61); SODIUM 138 mmol/L (136-145); TOT PROT 5.7 g/dl (6.4-8.2)
[2018-04-12] MEDS: ALBUTEROL SO4 2.5/IPRATROPIUM 0.5 INH SOL 3 ML VIAL.NEB. NEB SCH ×4 (08:15→20:25)
--- NOTE | 2018-04-12 10:23 | PN ---
Progress Note, Physician History of Present Illness: pulmonary alert,feeling better,sob improving,less cough - Current Medication List Current Medications: Active Medications Acetaminophen (Tylenol -) 650 mg PO Q4H PRN PRN Reason: FEVER Albuterol Sulfate (Ventolin 0.083% Nebulizer Soln -) 1 amp NEB Q6H PRN PRN Reason: SHORT OF BREATH/WHEEZING Albuterol/Ipratropium (Duoneb -) 1 amp NEB RQID [facility] Last Admin: 04/12/18 08:15 Dose: 1 amp Amlodipine Besylate (Norvasc -) 5 mg PO DAILY [facility] Last Admin: 04/11/18 10:35 Dose: 5 mg Atenolol (Tenormin -) 50 mg PO DAILY [facility] Last Admin: 04/11/18 10:35 Dose: 50 mg Atorvastatin Calcium (Lipitor -) 10 mg PO HS [facility] Last Admin: 04/11/18 21:38 Dose: 10 mg Diphenhydramine HCl (Benadryl -) 25 mg PO HS PRN PRN Reason: INSOMNIA Fluoxetine HCl (Prozac -) 40 mg PO DAILY [facility] Last Admin: 04/11/18 10:35 Dose: 40 mg Furosemide (Lasix -) 20 mg PO DAILY [facility] Heparin Sodium (Porcine) (Heparin -) 5,000 unit SQ BID [facility] Last Admin: 04/11/18 21:37 Dose: 5,000 unit Ampicillin Sodium/Sulbactam (Sodium 3 gm/ Sodium Chloride) 100 mls @ 200 mls/ hr IVPB Q8H-IV [facility] Last Admin: 04/12/18 03:00 Dose: 200 mls/hr Insulin Aspart (Novolog Vial Sliding Scale -) 1 vial SQ ACHS [facility]; Protocol Last Admin: 04/12/18 06:39 Dose: Not Given Methylprednisolone Sodium Succinate (Solu-Medrol -) 40 mg IVPUSH Q12H [facility] Last Admin: 04/11/18 21:37 Dose: 40 mg Ondansetron HCl (Zofran Injection) 8 mg IVPB Q8H PRN PRN Reason: NAUSEA AND/OR VOMITING Pantoprazole Sodium (Protonix -) 40 mg PO BID [facility] Last Admin: 04/11/18 21:38 Dose: 40 mg Potassium Chloride (K-Dur -) 20 meq PO DAILY [facility] Last Admin: 04/11/18 10:35 Dose: 20 meq - Objective Vital Signs: Vital Signs Temperature 98.4 F 04/12/18 06:00 Pulse Rate 68 04/12/18 06:00 Respiratory Rate 20 04/12/18 06:00 Blood Pressure 140/68 04/12/18 06:00 O2 Sat by Pulse Oximetry (%) 97 04/09/18 09:00 Constitutional: Yes: Well Nourished, Calm Eyes: Yes: WNL HENT: Yes: WNL Neck: Yes: WNL Cardiovascular: Yes: Regular Rate and Rhythm, S1, S2 Respiratory: Yes: Rales (bibasilar rales L>R) Gastrointestinal: Yes: Normal Bowel Sounds, Soft Extremities: Yes: WNL Edema: No Labs: CBC, BMP 04/12/18 06:00 04/12/18 06:00 INR, PTT INR 1.00 (0.83-1.09) 04/05/18 13:30 Problem List - Problems (1) Acute hypoxemic respiratory failure Code(s): J96.01 - ACUTE RESPIRATORY FAILURE WITH HYPOXIA (2) Acute kidney injury superimposed on CKD Code(s): N17.9 - ACUTE KIDNEY FAILURE, UNSPECIFIED; N18.9 - CHRONIC KIDNEY DISEASE, UNSPECIFIED (3) Aspiration pneumonia Code(s): J69.0 - PNEUMONITIS DUE TO INHALATION OF FOOD AND VOMIT (4) Food impaction of esophagus Code(s): T18.128A - FOOD IN ESOPHAGUS CAUSING OTHER INJURY, INITIAL ENCOUNTER Qualifiers: Encounter type: initial encounter Qualified Code(s): T18.128A - Food in esophagus causing other injury, initial encounter (5) Esophageal obstruction due to food impaction Code(s): K22.2 - ESOPHAGEAL OBSTRUCTION; T18.128A - FOOD IN ESOPHAGUS CAUSING OTHER INJURY, INITIAL ENCOUNTER (6) History of anal cancer Code(s): Z85.048 - PRSNL HX OF MALIG NEOPLM OF RECTUM, RECTOSIG JUNCT, AND ANUS (7) History of lung cancer Code(s): Z85.118 - PERSONAL HISTORY OF MALIGNANT NEOPLASM OF BRONCHUS AND LUNG (8) Hypertension Code(s): I10 - ESSENTIAL (PRIMARY) HYPERTENSION Assessment/Plan Assessment/Plan Acute Hypoxic Respiratory Failure improving Esophageal Impaction s/p EGD Pneumonia ? aspiration UTI Sepsis Acute on Chronic Renal Failure h/o Lung Ca s/p MELI lobectomy h/o Anal Ca HTN - antibiotics - O2 to keep Spo2 >90% - inhaled bronchodilators - DVT prophylaxis - F/U CHEST CT 6 WKS to document resolution of infiltrates DR VEGA
[2018-04-12] MEDS: FLUoxetine HCL 20 MG CAPSULE (FP) PO SCH (10:35)
[2018-04-12] MEDS: HEPARIN NA (PORCINE) 5,000 UNITS/ML 1ML VIAL SQ SCH ×2 (10:35→22:30)
[2018-04-12] MEDS: FUROSEMIDE 20 MG TABLET (FP) PO SCH (10:36)
[2018-04-12] MEDS: ATENOLOL 50 MG TABLET (FP) PO SCH (10:36)
[2018-04-12] MEDS: PANTOPRAZOLE 40 MG TABLET (FP) PO SCH ×2 (10:36→22:29)
[2018-04-12] MEDS: amLODIPine BESYLATE 5 MG TABLET (FP) PO SCH (10:36)
[2018-04-12] MEDS: POTASSIUM CHLORIDE TABS 20 MEQ TABLET.ER (FP) PO SCH (10:37)
[2018-04-12] MEDS: methylPREDNISolone NA SUCC 40 MG/1 ML VIAL IVPUSH SCH ×2 (10:38→22:29)
--- NOTE | 2018-04-12 11:17 | PN ---
Progress Note (short form) - Note Progress Note: s: less sob, no chest pain, palps, dizziness Current Medications Generic Name Dose Route Start Last Admin Trade Name Freq PRN Reason Stop Dose Admin Acetaminophen 650 mg 04/10/18 08:31 Tylenol - PO Q4H PRN FEVER Albuterol Sulfate 1 amp 04/10/18 08:31 Ventolin 0.083% Nebulizer Soln - NEB Q6H PRN SHORT OF BREATH/WHEEZING Albuterol/Ipratropium 1 amp 04/10/18 12:00 04/12/18 08:15 Duoneb - NEB 1 amp RQID [facility] Administration Amlodipine Besylate 5 mg 04/10/18 10:00 04/12/18 10:36 Norvasc - PO 5 mg DAILY [facility] Administration Atenolol 50 mg 04/10/18 10:00 04/12/18 10:36 Tenormin - PO 50 mg DAILY [facility] Administration Atorvastatin Calcium 10 mg 04/10/18 22:00 04/11/18 21:38 Lipitor - PO 10 mg HS [facility] Administration Diphenhydramine HCl 25 mg 04/10/18 21:47 Benadryl - PO HS PRN INSOMNIA Fluoxetine HCl 40 mg 04/10/18 10:00 04/12/18 10:35 Prozac - PO 40 mg DAILY [facility] Administration Furosemide 20 mg 04/12/18 10:00 04/12/18 10:36 Lasix - PO 20 mg DAILY [facility] Administration Heparin Sodium (Porcine) 5,000 unit 04/10/18 10:00 04/12/18 10:35 Heparin - SQ 5,000 unit BID [facility] Administration Ampicillin Sodium/Sulbactam 100 mls @ 200 mls/hr 04/10/18 10:00 04/12/18 10: 38 Sodium 3 gm/ Sodium Chloride IVPB 200 mls/hr Q8H-IV [facility] Administration Insulin Aspart 1 vial 04/10/18 22:00 04/12/18 06:39 Novolog Vial Sliding Scale - SQ Not Given ACHS [facility] Protocol Methylprednisolone Sodium Succinate 40 mg 04/11/18 10:30 04/12/18 10:38 Solu-Medrol - IVPUSH 40 mg Q12H [facility] Administration Ondansetron HCl 8 mg 04/10/18 08:31 Zofran Injection IVPB Q8H PRN NAUSEA AND/OR VOMITING Pantoprazole Sodium 40 mg 02/18/19 22:00 04/12/18 10:36 Protonix - PO 40 mg BID [facility] Administration Potassium Chloride 20 meq 04/11/18 10:00 04/12/18 10:37 K-Dur - PO 20 meq DAILY [facility] Administration Vital Signs Period Temp Pulse Resp BP Sys/Toure Pulse Ox Last 24 Hr 98.0 F-99.0 F 66-78 16-20 131-140/64-79 Constitutional: Yes: Well Nourished, No Distress Eyes: No: Sclera Icterus Respiratory: Yes: CTA Bilaterally. No: Accessory Muscle Use, Rales, Wheezes Gastrointestinal: Yes: Normal Bowel Sounds. No: Distention, Hepatomegaly, Palpable Mass, Tenderness Cardiovascular: Yes: Regular Rate and Rhythm JVD: no Heart Sounds: Yes: S1, S2. No: Gallop Murmur: No: Systolic Murmur, Diastolic Murmur Extremities: No: Cold, Cyanosis Edema: No Peripheral Pulses: 2+ Left Carotid, 2+ Right Carotid, 2+ Left Doralis Pedis, 2+ Right Dorsalis Pedis Integumentary: No: Jaundice Neurological: Yes: Alert, Oriented (x3) Psychiatric: No: Agitated CBC, BMP 04/12/18 06:00 04/12/18 06:00 ECG 04/08: NSR, mildly prolonged QT (unchanged vs prior), nonsp ST-Ts anterior leads--these are accentuated vs prior 12/2016 (but were present then) CXR 04/08: progressive L infiltrate. diffuse interstitial markings, no vascular redistribution CT chest: L lower chest infiltrate, mild RLL ground glass opacity, sm R and tr L pleural effusions, enlarged lymph nodes, dilation main PA, ascending aorta borderline dilated 4 cm, echo 03/2018 tds, nl LV/RV fn, LA mod dilated, mod TR, mild to mod MR, mild AR, grade II diastolic dysfunction, severe pulm HTN tele: sinus Assessment/Plan fever, sob, cough, wheezes, hypoxia, acute on chronic diastolic CHF: -? aspiration pneumonitis vs CAP. CXR 04/08 with L infiltrate, fever to >101 on -followup CT, abx and supportive care per pulm -suspect subacute CHF for few weeks, acutely worse here after IVF received: BNP 13K (no priors). +JVD -doubt PE in setting of sx's ongoing several weeks, and + abnormal CXR with clinical findings of infection and CHF. deferring CTA chest given GFR <30. -echo nl LV/RV function with severe pulmonary HTN with grade II diastolic dysfunction -ECG with nonspecific ST-T changes vs prior. trop neg x2 -given lasix 20 iv 04/08--noted good diuretic effect, received lasix 40 mg IV -, then sob improving and Cr rising, so now on po lasix [place] on CKD: -creat initially up, now back to baseline range (1.5-1.9) -monitor closely with diuresis HTN: -bp controlled
[2018-04-12 12:57] LABS: ANISOCYTOSIS 2+; MACROCYTOSIS 0; OVALOCYTE 1+; PLATELET ESTIMATE NORMAL
--- NOTE | 2018-04-12 14:35 | PN ---
Progress Note, CQ DEVELOPER - Note Progress Note: Swallowing Recommendations- Drink before starting meal to lubricate swallowing structures, Moist foods, extra condiments/gravy, small bites, chew well,follow with sips of liquid. Finish meal with liquid. Upright 1 hour after meals and no PO intake within 2 hours of bedtime, Avoid bending over/exercising after meals, Minimize Caffiene, carbonation, Green Tree, Tomatoes, onions, spicy foods, high fat foods. Mediterranean diet/Alkaline water Selected Entries 04/11/18 04/11/18 04/11/18 02:28 05:42 09:42 Breakfast Lunch Supper Temperature 98.2 F 97.8 F 98 F 04/11/18 04/11/18 04/11/18 10:12 15:21 17:00 Breakfast 75% Lunch 75% Supper Temperature 99.0 F 98.2 F 04/11/18 04/11/18 04/12/18 19:24 20:21 01:30 Breakfast Lunch Supper 100% Temperature 98.2 F 98.0 F 04/12/18 04/12/18 04/12/18 06:00 10:42 13:49 Breakfast 75% Lunch Supper Temperature 98.4 F 99.2 F Laboratory Tests 04/12/18 06:00 WBC 8.2 Excellent compliance with compensatory swallowing recommendations. MBS in future , after esophageal dilatation, unless swallowing /congestion worsens.
[2018-04-12] MEDS ORDERED: MAGNESIUM OXIDE 400 MG TABLET (FP) PO ONE (16:27)
--- NOTE | 2018-04-12 16:27 | PN ---
Progress Note, Physician History of Present Illness: Pt seen and examined at bedside. She is awake and alert. She denies shortness of breath. - Current Medication List Current Medications: Active Medications Acetaminophen (Tylenol -) 650 mg PO Q4H PRN PRN Reason: FEVER Albuterol Sulfate (Ventolin 0.083% Nebulizer Soln -) 1 amp NEB Q6H PRN PRN Reason: SHORT OF BREATH/WHEEZING Albuterol/Ipratropium (Duoneb -) 1 amp NEB RQID [facility] Last Admin: 04/12/18 15:59 Dose: 1 amp Amlodipine Besylate (Norvasc -) 5 mg PO DAILY [facility] Last Admin: 04/12/18 10:36 Dose: 5 mg Atenolol (Tenormin -) 50 mg PO DAILY [facility] Last Admin: 04/12/18 10:36 Dose: 50 mg Atorvastatin Calcium (Lipitor -) 10 mg PO HS [facility] Last Admin: 04/11/18 21:38 Dose: 10 mg Diphenhydramine HCl (Benadryl -) 25 mg PO HS PRN PRN Reason: INSOMNIA Fluoxetine HCl (Prozac -) 40 mg PO DAILY [facility] Last Admin: 04/12/18 10:35 Dose: 40 mg Furosemide (Lasix -) 20 mg PO DAILY [facility] Last Admin: 04/12/18 10:36 Dose: 20 mg Heparin Sodium (Porcine) (Heparin -) 5,000 unit SQ BID [facility] Last Admin: 04/12/18 10:35 Dose: 5,000 unit Ampicillin Sodium/Sulbactam (Sodium 3 gm/ Sodium Chloride) 100 mls @ 200 mls/ hr IVPB Q8H-IV [facility] Last Admin: 04/12/18 10:38 Dose: 200 mls/hr Insulin Aspart (Novolog Vial Sliding Scale -) 1 vial SQ ACHS [facility]; Protocol Last Admin: 04/12/18 13:15 Dose: Not Given Methylprednisolone Sodium Succinate (Solu-Medrol -) 40 mg IVPUSH Q12H [facility] Last Admin: 04/12/18 10:38 Dose: 40 mg Ondansetron HCl (Zofran Injection) 8 mg IVPB Q8H PRN PRN Reason: NAUSEA AND/OR VOMITING Pantoprazole Sodium (Protonix -) 40 mg PO BID [facility] Last Admin: 04/12/18 10:36 Dose: 40 mg Potassium Chloride (K-Dur -) 20 meq PO DAILY [facility] Last Admin: 04/12/18 10:37 Dose: 20 meq - Objective Vital Signs: Vital Signs Temperature 99.2 F 04/12/18 13:49 Pulse Rate 71 04/12/18 15:07 Respiratory Rate 20 04/12/18 13:49 Blood Pressure 153/69 04/12/18 13:49 O2 Sat by Pulse Oximetry (%) 95 04/12/18 15:07 Constitutional: Yes: Calm Eyes: Yes: Conjunctiva Clear HENT: Yes: Atraumatic Neck: Yes: Supple Cardiovascular: Yes: S1, S2 Respiratory: Yes: On Nasal O2 Gastrointestinal: Yes: Soft Genitourinary: Yes: WNL Musculoskeletal: Yes: WNL Edema: No Neurological: Yes: Oriented Psychiatric: Yes: Oriented Labs: CBC, BMP 04/12/18 06:00 04/12/18 06:00 INR, PTT INR 1.00 (0.83-1.09) 04/05/18 13:30 Problem List - Problems (1) Food impaction of esophagus Code(s): T18.128A - FOOD IN ESOPHAGUS CAUSING OTHER INJURY, INITIAL ENCOUNTER Qualifiers: Encounter type: initial encounter Qualified Code(s): T18.128A - Food in esophagus causing other injury, initial encounter (2) History of anal cancer Code(s): Z85.048 - PRSNL HX OF MALIG NEOPLM OF RECTUM, RECTOSIG JUNCT, AND ANUS (3) Renal insufficiency Code(s): N28.9 - DISORDER OF KIDNEY AND URETER, UNSPECIFIED (4) Schatzki's ring Code(s): K22.2 - ESOPHAGEAL OBSTRUCTION Assessment/Plan Current Medications Generic Name Dose Route Start Last Admin Trade Name Freq PRN Reason Stop Dose Admin Acetaminophen 650 mg 04/10/18 08:31 Tylenol - PO Q4H PRN FEVER Albuterol Sulfate 1 amp 04/10/18 08:31 Ventolin 0.083% Nebulizer Soln - NEB Q6H PRN SHORT OF BREATH/WHEEZING Albuterol/Ipratropium 1 amp 04/10/18 12:00 04/12/18 15:59 Duoneb - NEB 1 amp RQID [facility] Administration Amlodipine Besylate 5 mg 04/10/18 10:00 04/12/18 10:36 Norvasc - PO 5 mg DAILY [facility] Administration Atenolol 50 mg 04/10/18 10:00 04/12/18 10:36 Tenormin - PO 50 mg DAILY [facility] Administration Atorvastatin Calcium 10 mg 04/10/18 22:00 04/11/18 21:38 Lipitor - PO 10 mg HS [facility] Administration Diphenhydramine HCl 25 mg 04/10/18 21:47 Benadryl - PO HS PRN INSOMNIA Fluoxetine HCl 40 mg 04/10/18 10:00 04/12/18 10:35 Prozac - PO 40 mg DAILY [facility] Administration Furosemide 20 mg 04/12/18 10:00 04/12/18 10:36 Lasix - PO 20 mg DAILY [facility] Administration Heparin Sodium (Porcine) 5,000 unit 04/10/18 10:00 04/12/18 10:35 Heparin - SQ 5,000 unit BID [facility] Administration Ampicillin Sodium/Sulbactam 100 mls @ 200 mls/hr 04/10/18 10:00 04/12/18 10: 38 Sodium 3 gm/ Sodium Chloride IVPB 200 mls/hr Q8H-IV [facility] Administration Insulin Aspart 1 vial 04/10/18 22:00 04/12/18 13:15 Novolog Vial Sliding Scale - SQ Not Given ACHS [facility] Protocol Methylprednisolone Sodium Succinate 40 mg 04/11/18 10:30 04/12/18 10:38 Solu-Medrol - IVPUSH 40 mg Q12H [facility] Administration Ondansetron HCl 8 mg 04/10/18 08:31 Zofran Injection IVPB Q8H PRN NAUSEA AND/OR VOMITING Pantoprazole Sodium 40 mg 04/09/18 22:00 04/12/18 10:36 Protonix - PO 40 mg BID [facility] Administration Potassium Chloride 20 meq 04/11/18 10:00 04/12/18 10:37 K-Dur - PO 20 meq DAILY [facility] Administration Impression 1. [place] 2. CKD 3. lung cancer 4. hypokalemia 5. htn 6. hld 7. schatzki ring 8. hydronephrosis 9. UTI Plan - renal function stabilizing - pt on PO lasix - will see in office after discharge - cont potassium supplements - check mag in am - monitor pulse ox
[2018-04-12 20:39] VITALS: PULSE 66; TEMP 98.1
[2018-04-12] MEDS: ATORVASTATIN CA 10 MG TABLET (FP) PO SCH (22:29)
[2018-04-13] MEDS: AMPICILLIN NA/SULBACTAM NA 3 GM in SODIUM CHLORIDE 100 ML IVPB SCH ×2 (02:05→09:54)
[2018-04-13] MEDS: INSULIN SLIDING SCALE (NOVOLOG) 1 VIAL SQ SCH (06:10)
[2018-04-13 06:55] VITALS: BP 155/76
[2018-04-13] MEDS: ALBUTEROL SO4 2.5/IPRATROPIUM 0.5 INH SOL 3 ML VIAL.NEB. NEB SCH (07:25)
--- NOTE | 2018-04-13 07:50 | DS ---
Physical Examination Vital Signs: Vital Signs Temperature 98.1 F 04/12/18 20:38 Pulse Rate 66 04/13/18 06:00 Respiratory Rate 20 04/13/18 06:00 Blood Pressure 155/76 04/13/18 06:00 O2 Sat by Pulse Oximetry (%) 95 04/12/18 20:20 Findings/Remarks: feeling well no c/o feels ready to go home will switch to po augmentin and po prednisone tapering doses d/w pt how to take them; good po hydration; bacid/yogurt po DC meds dw pt in detail; needs home O2 3L/min and nebs prn d/w pt in detail f/u needed also instructions written and d/w PCP dr Frances Santiago script done t time 40 min Constitutional: Yes: No Distress, Calm Eyes: Yes: Conjunctiva Clear HENT: Yes: Atraumatic Neck: Yes: Supple Cardiovascular: Yes: Regular Rate and Rhythm Respiratory: Yes: CTA Bilaterally Gastrointestinal: Yes: Soft. No: Tenderness Renal/: No: CVA Tenderness - Left, CVA Tenderness - Right Musculoskeletal: No: Joint Stiffness, Joint Swelling Extremities: No: Cold, Cool, Cyanosis Edema: No Integumentary: No: Rash, Venous Stasis Changes Neurological: Yes: WNL, Alert, Oriented ...Motor Strength: WNL Psychiatric: Yes: WNL, Alert, Oriented. No: Agitated, Suicidal Ideation Labs: CBC, BMP 04/12/18 06:00 04/12/18 06:00 Discharge Summary Reason For Visit: OBSTRUCTIN OF ESOPHAGUS DUE TO FOOD IMPACTION Current Active Problems Acute hypoxemic respiratory failure (Acute) Acute kidney injury superimposed on CKD (Acute) Aspiration pneumonia (Acute) Food impaction of esophagus (Acute) Hydronephrosis (Acute) Hydronephrosis determined by ultrasound (Acute) Procedures: Principal: 77 YOF HTN, lung CA, rectal CA, Schatzi rings admitted with food impaction EGD done desimpaction but developed fever and high WBC postop. Other Procedures: developed aspiration PNA, UTI; treated with IV ATB per ID. also hypoxic - multifactorial: aspiration PNA, fluid overload and mediastinal adenopathy on chest CT; needs repeat chest CT in 1 month. seen by cardiology, pulmonary, heme onc; diuresed;. had ARF/CRF and fluid Overload; echo NL LVEF but severe pulm HTN needs close f/u cardiology, pulmonary;. mild hydronephrosis and IT cystitis: needs renal and f/u as outpt Hospital Course: improved with above; DC po ATB and po tapering steroids will need home O2, inhalers; f/u as advised d/w pt and PCP dr Santiago Condition: Guarded - Instructions Diet, Activity, Other Instructions: f/u PCP and labs CBC CMP in 1-2 weeks; f/u renal, cardiology, pulmonary, GI and heme onc in 1-[address] in 1 month f/u echo, cardiology and pulmonary for severe pulm HTN RTER if worse or recurrent c/o puree diet, aspiration PFX; f/u GI for Shatzki rigns dilation f/u for cystitis and hydronephrosis Referrals: Anderson Cummings MD [Staff Physician] - Karlos Boyd MD [Staff Physician] - Errol Rosario MD., MD [Staff Physician] - Kurtis Barker MD [Staff Physician] - Casey Rosario MD [Staff Physician] - Aleksandar Mason MD [Staff Physician] - Ghislaine Santiago MD [Primary Care Provider] - Disposition: VNS/HOME HEALTH CARE - Home Medications Comprehensive Discharge Medication List: Ambulatory Orders Amlodipine Besylate [Norvasc -] 10 mg PO DAILY 05/29/15 Aspirin [Aspirin EC] 81 mg PO DAILY 05/29/15 Atenolol [Tenormin -] 100 mg PO DAILY 05/29/15 Atorvastatin Ca [Lipitor] 10 mg PO HS 05/29/15 Fluoxetine HCl [Prozac] 40 mg PO DAILY 05/29/15 Pantoprazole Sodium [Protonix -] 40 mg PO DAILY #30 tablet.ec 06/03/15 Diphenoxylate 2.5/Atropine.025 [Lomotil -] 2 combo PO Q6H PRN 04/05/18 Olmesartan/Hydrochlorothiazide [Olmesartan-Hctz 40-25 mg Tab] 1 each PO DAILY
[2018-04-13] MEDS ORDERED: amLODIPine BESYLATE 10 MG TABLET (FP) PO SCH (08:04)
[2018-04-13 08:58] LABS: ALBUMIN 3.3 g/dl (3.4-5.0); ALK PHOS 83 U/L (45-117); ANION GAP 9 MMOL/L (8-16); BILIRUBIN,TOTAL 0.7 mg/dL (0.2-1); BLOOD UREA NITROGEN 27 mg/dL (7-18); CALCIUM 8.3 mg/dL (8.5-10.1); CHLORIDE 96 mmol/L (98-107); CO2 33 mmol/L (21-32); CREATININE 1.8 mg/dL (0.55-1.3); GLUCOSE,RANDOM 120 mg/dL (74-106); MAGNESIUM 1.9 mg/dL (1.8-2.4); POTASSIUM 3.9 mmol/L (3.5-5.1); SGOT/AST 30 U/L (15-37); SGPT/ALT 32 U/L (13-61); SODIUM 138 mmol/L (136-145); TOT PROT 6.5 g/dl (6.4-8.2)
[2018-04-13] MEDS: ATENOLOL 50 MG TABLET (FP) PO SCH (09:13)
[2018-04-13] MEDS: FUROSEMIDE 20 MG TABLET (FP) PO SCH (09:13)
[2018-04-13] MEDS: PANTOPRAZOLE 40 MG TABLET (FP) PO SCH (09:13)
[2018-04-13] MEDS: FLUoxetine HCL 20 MG CAPSULE (FP) PO SCH (09:13)
[2018-04-13] MEDS: POTASSIUM CHLORIDE TABS 20 MEQ TABLET.ER (FP) PO SCH (09:14)
[2018-04-13] MEDS: HEPARIN NA (PORCINE) 5,000 UNITS/ML 1ML VIAL SQ SCH (09:54)
[2018-04-13 10:11] LABS: SCLERODERMA 70 AB <0.2 AI (0.0-0.9)
== END 2018-04-13 12:02 | disposition home health service (06) | DRG 177 ==
LOC: JERFT 11:21 → JASUSAT 13:26 → JERBED 13:27 → J5S 18:21 → OBSVTOIN 04-07 09:42 → J4W 04-08 18:06
PROVIDERS: ADMIT Internal Medicine; ATTEND Internal Medicine
PROC: 0DC58ZZ Extirpation of Matter from Esophagus, Via Natural or Artificial Opening Endoscopic (ICD-10-PCS; principal; 2018-04-05 14:00)
DX: J69.0 Pneumonitis due to inhalation of food and vomit (principal); J96.01 Acute respiratory failure with hypoxia; I50.33 Acute on chronic diastolic (congestive) heart failure; N17.9 Acute kidney failure, unspecified; N13.6 Pyonephrosis; I13.0 Hypertensive heart and chronic kidney disease with heart failure and stage 1 through stage 4 chronic kidney disease, or unspecified chronic kidney disease; J95.89 Other postprocedural complications and disorders of respiratory system, not elsewhere classified; K22.2 Esophageal obstruction; K44.9 Diaphragmatic hernia without obstruction or gangrene; F32.9 Major depressive disorder, single episode, unspecified; N18.3 Chronic kidney disease, stage 3 (moderate); E87.6 Hypokalemia; E86.1 Hypovolemia; R50.9 Fever, unspecified; I45.81 Long QT syndrome; T18.128A Food in esophagus causing other injury, initial encounter; X58.XXXA Exposure to other specified factors, initial encounter; Z85.118 Personal history of other malignant neoplasm of bronchus and lung; Z85.048 Personal history of other malignant neoplasm of rectum, rectosigmoid junction, and anus; Z87.891 Personal history of nicotine dependence
CPT/HCPCS: 36415; 71045-TC-FY; 71046-TC-FY; 71250-TC; 74220-TC-FY; 76775-TC; 80048; 80053; 81003; 81015; 82550; 82607; 82728; 82746; 82962; 83010; 83516; 83520; 83540; 83615; 83735; 83880; 84100; 84155; 84165; 84443; 84484; 85025; 85027; 85044; 85610; 85651; 85730; 86038; 86235; 86256; 86850; 86900; 86901; 87040; 87086; 87899; 93005; 93010; 93306-TC; 93970-TC; 94010; 94640; 94761; 99282-25; G0378; J1644; J7030